=== PATIENT | female | born 1935 | race Caucasian/White ===

== ENCOUNTER 2017-08-16 16:26 | Observation (INO) ==
[2017-08-16 18:39] LABS: Basophils % 0.3 %; Eosinophils # 0.1 K/mcL (0.0-0.6); Eosinophils % 1.4 %; Hemoglobin 10.4 g/dL (11.5-15.4); Immature Granulocytes % 0.3 % (0-4); Lymphocytes # 0.7 K/mcL (0.6-4.6); Lymphocytes % 7.9 %; Mean Corpuscular HGB Conc 32.5 g/dL (31.6-35.5); Mean Corpuscular Hemoglobin 30.7 pg (28.0-33.3); Mean Corpuscular Volume 94.4 fL (83.0-100.0); Monocytes # 0.9 K/mcL (0.0-1.3); Monocytes % 10.6 %; Neutrophils # 6.9 K/mcL (1.6-8.9); Platelet Count 258 K/mcL (140-400); Red Blood Count 3.39 M/mcL (3.82-4.97); Red Cell Distribution Width 13.7 % (11.5-14.5); Segmented Neutrophils % 79.5 %
[2017-08-16 18:59] LABS: Albumin 3.3 g/dL (3.5-5.7); Albumin/Globulin Ratio 0.9 (1.1-2.2); Bilirubin,Total 0.6 mg/dL (0.3-1.0); Calcium 9.2 mg/dL (8.6-10.3); Globulin 3.7 g/dL (2.4-3.5)
[2017-08-16] MEDS ORDERED: 0.9 % Sodium Chloride 500 ML IVC ONE (19:13)
[2017-08-16] MEDS ORDERED: Ondansetron 4 MG/2 ML VIAL IVP ONE (19:14)
[2017-08-16] MEDS ORDERED: *HR* Morphine 2 MG/ML SYRINGE IVP ONE (19:14)
--- NOTE | 2017-08-16 19:19 | Emergency Department Note ---
START Narrative - START START: I examined this patient and my medical decision-making was reviewed with the emergency medicine resident. I agree with the documented findings, disposition and treatment plan as described except to the extent set forth below. Patient seen with emergency medicine resident Dr. Leodan Skinner, Please see a copy of his note for details of the H&P, ED evaluation, management and disposition. I have independently evaluated the patient and confirmed appropriate portions of the history and physical exam. Briefly: 82-year-old female had a non-simple slip fall complaining of some hip pain and also right lower quadrant pain abdomen is surgically benign CT is pending of the abdominal pelvic area screening labs pending patient and repeat EKG critically elevated troponin 0.04 I never been that high. Likely disposition is admission. Disposition is pending currently. Provided 30 minutes of critical care services for this patient.
[2017-08-16] MEDS ORDERED: *HR* HYDROmorphone (PF) 1 MG/ML SYRINGE IVP ONE (19:31)
[2017-08-16 20:49] LABS: Bilirubin,Urine Small (Negative); Blood,Urine Trace-lysed (Negative); Clarity,Urine Slightly Cloudy (Clear); Color,Urine Yellow (Yellow); Glucose,Urine (UA) Normal (Normal); Ketones,Urine Negative (Negative); Leukocyte Esterase,Urine Small (Negative); Nitrite,Urine Negative (Negative); PH,Urine 5.5 pH Units (5.0-8.0); Protein,Urine 100 mg/dL (Neg-Trace); Urobilinogen,Urine Normal (Normal)
[2017-08-16 21:00] LABS: Squamous Epithelial Cell,Urine Many per lpf (None-Few)
[2017-08-16 21:01] LABS: Bacteria,Urine Few per hpf (None-Few); Hyaline Casts,Urine None Seen per lpf (None-Few); WBC,Urine 30-50 per hpf (0-3)
--- NOTE | 2017-08-16 21:11 | Emergency Department Note ---
Disposition Clinical Impression: Elevated troponin, Frequent falls Abdominal pain Qualifiers: Abdominal location: right lower quadrant Qualified Code(s): R10.31 - Right lower quadrant pain CAD (coronary artery disease) Qualifiers: Coronary Disease-Associated Artery/Lesion type: unspecified vessel or lesion type [place] vs. transplanted heart: unspecified whether [place] or transplanted heart Associated angina: angina presence unspecified Qualified Code(s): I25.10 - Atherosclerotic heart disease of [place] coronary artery without angina pectoris Disposition: Admitted As Inpatient Condition: Fair Referrals: Fabian Cooper DO [Primary Care Provider] - Forms: ED Satisfaction Letter, Work/School Release Time of Disposition: 21:35 Abdominal Pain HPI - General Chief Complaint: ED Abdominal Pain Stated Complaint: RLQ Pain, Left shoulder Pain Time Seen by Provider: 08/16/17 18:32 Source: patient Mode of arrival: ambulatory Limitations: no limitations Nursing Notes Reviewed: Yes Vital Signs Reviewed: Yes - History of Present Illness HPI Narrative: 80-year-old female with history of diabetes, COPD, CAD post stents 4, presents abdominal pain and generalized weakness for a week, frequent falls at home, lives independently. She states that she has been having right lower quadrant pain she rates 5 out of 10, she also his right hip pain she has been able to ambulate but she states that she landed on her right hip on [place], and she did not get evaluated by a physician. Patient has had intermittent chest pain as well rated into her neck. Patient denies hemoptysis, leg swelling, history of DVT. Pt Subjective Complaint: abdominal pain Onset (ago): hour(s) Location: RLQ Pain Severity: moderate Pain Scale: 6 Quality: cramping, stabbing Radiation: none Improves with: nothing Worsens with: nothing Associated symptoms: Reports: nausea. Denies: vomiting, diarrhea, constipation , dysuria - Related Data Previous Rx's Medication Instructions Recorded Metoclopramide HCl 5 mg PO TIDWM #21 tablet 10/07/16 Ondansetron HCl [Zofran] 4 mg PO TID PRN #21 tablet 10/07/16 Amoxicillin 875 mg PO BID #20 tablet 08/13/17 Allergies Allergy/AdvReac Type Severity Reaction Status Date / Time morphine Allergy Difficulty Verified 08/16/17 19:28 Breathing adhesive tape AdvReac Itching Verified 08/16/17 16:59 ciprofloxacin [From Cipro] AdvReac Difficulty Verified 08/16/17 16:59 Breathing Penicillins AdvReac Difficulty Verified 08/16/17 16:59 Breathing Sulfa (Sulfonamide AdvReac Difficulty Verified 08/16/17 16:59 Antibiotics) Breathing All systems ED: reviewed and negative except as stated. Review of Systems: As Per HPI Constitutional: Reports: weakness. Denies: fever, chills Eyes: Denies: eye pain ENT ED: Denies: ear pain, throat pain Cardiovascular: Reports: as per HPI, chest pain Respiratory: Denies: cough, dyspnea Gastrointestinal: Reports: abdominal pain, nausea. Denies: vomiting Genitourinary: Denies: urgency, dysuria Musculoskeletal: Denies: back pain Integumentary: Denies: rash Neurological: Reports: as per HPI, weakness. Denies: headache Abdominal Pain PMH - Past Medical History Medical history: Reports: arthritis, asthma, CHF, COPD, coronary artery disease , diabetes, fibromyalgia, hypertension Female Surgical History: Reports: cholecystectomy, orthopedic, other Psychiatric history: Reports: no psych history - Social History Smoking status: Former smoker Alcohol use: Reports: none Drug use: Reports: none Physical Exam - General Limitations: age General appearance: alert - Head Head exam: atraumatic, normocephalic - ENT ENT exam: normal exam, normal oropharynx - Neck Neck exam: Present: normal inspection, full ROM - Chest Chest inspection: Present: normal inspection, symmetric chest wall rise - Respiratory Respiratory exam: Present: normal lung sounds bilaterally. Absent: respiratory distress - Cardiovascular Cardiovascular exam: Present: regular rate, normal rhythm. Absent: bradycardia - Abdominal Exam Abdominal exam: Present: soft, tenderness. Absent: guarding, rebound Abdominal tenderness: Present: RLQ, mild - Expanded Lower Extremity Exam Hip/Pelvis exam: Present: normal inspection, tenderness. Absent: deformity Upper leg exam: Absent: normal inspection, full ROM, tenderness Knee exam: Absent: normal inspection, full ROM, tenderness Neurovascular/Tendon exam: Present: normal capillary refill. Absent: pulse deficit, motor deficit - Back Exam Back exam: Present: normal inspection, full ROM - Neurological Exam Neurological exam: Present: alert, oriented X3, CN II-XII intact - Expanded Neurological Exam Patient oriented to: Present: person, place Motor strength - LUE: 5/5 Motor strength - RUE: 5/5 Motor strength - LLE: 5/5 Motor strength - RLE: 5/5 Coma Scale Eye Opening: Spontaneous Coma Scale Motor Response: Obeys Commands Coma Scale Verbal Response: Oriented Coma Scale Total: 15 - Psychiatric Psychiatric exam: Present: normal affect Course Course Narrative: 82-year-old female with generalized weakness at least one unwitnessed fall, unclear if this was syncopal or not get a CT abdomen and pelvis to evaluate for hip fracture as well as to evaluate her right lower quadrant pain, also patient is a history of CAD will be EKG troponin, plan for full lab work and reassessment - Reevaluation(s) Reevaluation #1: Patient is evidence of elevated troponin 0.04, no previous elevations in history of CAD, will give aspirin, no interabdominal or hip fracture pathology, however given weakness frequent falls living at home with elevated troponin concern for possible [place], ischemic changes, demand ischemia, for troponin trending no dictation for heparinization at this time as she is chest pain-free aspirin [facility] Time: 21:34 Vital Signs Temperature 98.9 F 08/16/17 16:59 Pulse Rate 68 08/16/17 16:59 Respiratory Rate 20 08/16/17 16:59 Blood Pressure 149/73 08/16/17 16:59 O2 Sat by Pulse Oximetry 94 08/16/17 16:59 Temperature 98.9 F 08/16/17 16:59 Pulse Rate 78 08/16/17 18:41 Respiratory Rate 18 08/16/17 18:41 Blood Pressure 172/57 08/16/17 18:41 O2 Sat by Pulse Oximetry 94 08/16/17 18:41 Oxygen Delivery Oxygen Delivery Room Air Abdominal Pain - Differential Diagnosis Differential Diagnosis: Likely: abdominal pain non-specific, diverticulitis - Medical Records Medical records reviewed: Yes I reviewed the patient's medical records. - Lab Data Lab results reviewed: Yes I reviewed the patient's lab results. Result diagrams: 08/16/17 18:26 08/16/17 18:26 Lab Results 08/16/17 08/16/17 08/16/17 Range/Units 18:26 18:26 18:26 WBC 8.7 (4.3-11.1) K/mcL RBC 3.39 L (3.82-4.97) M/mcL Hgb 10.4 L (11.5-15.4) g/dL Hct 32.0 L (35.3-44.9) % MCV 94.4 (83.0-100.0) fL MCH 30.7 (28.0-33.3) pg MCHC 32.5 (31.6-35.5) g/dL RDW 13.7 (11.5-14.5) % Plt Count 258 (140-400) K/mcL MPV 9.0 L (9.4-12.4) fL Immature Gran % 0.3 (0-4) % Seg Neutrophils % 79.5 % Lymphocytes % 7.9 % Monocytes % 10.6 % Eosinophils % 1.4 % Basophils % 0.3 % Neutrophils # 6.9 (1.6-8.9) K/mcL Lymphocytes # 0.7 (0.6-4.6) K/mcL Monocytes # 0.9 (0.0-1.3) K/mcL Eosinophils # 0.1 (0.0-0.6) K/mcL Basophils # 0.0 (0.0-0.2) K/mcL Sodium 135 L (136-145) mEq/L Potassium 4.0 (3.5-5.1) mEq/L Chloride 103 (98-107) mEq/L Carbon Dioxide 25 (23-29) mEq/L BUN 27 H (8-23) mg/dL Creatinine 1.31 H (0.60-1.20) mg/dL Est GFR ( Amer) 47 L (> 60) Est GFR (Non-Af Amer) 39 L (> 60) BUN/Creatinine Ratio 21 (6-26) Glucose 136 H (70-105) mg/dL Calculated Osmolality 287 (280-300) Calcium 9.2 (8.6-10.3) mg/dL Total Bilirubin 0.6 (0.3-1.0) mg/dL AST 16 (13-39) Units/L ALT 9 (7-52) Units/L Alkaline Phosphatase 72 (34-104) Units/L Troponin I 0.04 H* (< 0.04) ng/mL Serum Total Protein 7.0 (6.4-8.9) g/dL Albumin 3.3 L (3.5-5.7) g/dL Globulin 3.7 H (2.4-3.5) g/dL Albumin/Globulin Ratio 0.9 L (1.1-2.2) Amylase 40 (29-103) Units/L Lipase 43 (11-82) Units/L Ur Specimen Adequacy Urine Color (Yellow) Urine Clarity (Clear) Urine pH (5.0-8.0) pH Units Ur Specific [place] (1.010-1.025) Urine Protein (Neg-Trace) mg/dL Urine Glucose (UA) (Normal) mg/dL Urine Ketones (Negative) mg/dL Urine Blood (Negative) Urine Nitrite (Negative) Urine Bilirubin (Negative) Urine Urobilinogen (Normal) mg/dL Ur Leukocyte Esterase (Negative) Urine Microscopic RBC (0-3) per hpf Urine Microscopic WBC (0-3) per hpf Ur Squamous Epith Cells (None-Few) per lpf Urine Bacteria (None-Few) per hpf Hyaline Casts (None-Few) per lpf Ur Culture Indicated? (NO) 08/16/17 Range/Units 20:15 WBC (4.3-11.1) K/mcL RBC (3.82-4.97) M/mcL Hgb (11.5-15.4) g/dL Hct (35.3-44.9) % MCV (83.0-100.0) fL MCH (28.0-33.3) pg MCHC (31.6-35.5) g/dL RDW (11.5-14.5) % Plt Count (140-400) K/mcL MPV (9.4-12.4) fL Immature Gran % (0-4) % Seg Neutrophils % % Lymphocytes % % Monocytes % % Eosinophils % % Basophils % % Neutrophils # (1.6-8.9) K/mcL Lymphocytes # (0.6-4.6) K/mcL Monocytes # (0.0-1.3) K/mcL Eosinophils # (0.0-0.6) K/mcL Basophils # (0.0-0.2) K/mcL Sodium (136-145) mEq/L Potassium (3.5-5.1) mEq/L Chloride (98-107) mEq/L Carbon Dioxide (23-29) mEq/L BUN (8-23) mg/dL Creatinine (0.60-1.20) mg/dL Est GFR ( Amer) (> 60) Est GFR (Non-Af Amer) (> 60) BUN/Creatinine Ratio (6-26) Glucose (70-105) mg/dL Calculated Osmolality (280-300) Calcium (8.6-10.3) mg/dL Total Bilirubin (0.3-1.0) mg/dL AST (13-39) Units/L ALT (7-52) Units/L Alkaline Phosphatase (34-104) Units/L Troponin I (< 0.04) ng/mL Serum Total Protein (6.4-8.9) g/dL Albumin (3.5-5.7) g/dL Globulin (2.4-3.5) g/dL Albumin/Globulin Ratio (1.1-2.2) Amylase (29-103) Units/L Lipase (11-82) Units/L Ur Specimen Adequacy See below A Urine Color Yellow (Yellow) Urine Clarity Slightly Cloudy A (Clear) Urine pH 5.5 (5.0-8.0) pH Units Ur Specific [place] 1.020 (1.010-1.025) Urine Protein 100 H (Neg-Trace) mg/dL Urine Glucose (UA) Normal (Normal) mg/dL Urine Ketones Negative (Negative) mg/dL Urine Blood Trace-lysed H (Negative) Urine Nitrite Negative (Negative) Urine Bilirubin Small H (Negative) Urine Urobilinogen Normal (Normal) mg/dL Ur Leukocyte Esterase Small H (Negative) Urine Microscopic RBC 3-5 H (0-3) per hpf Urine Microscopic WBC 30-50 H (0-3) per hpf Ur Squamous Epith Cells Many H (None-Few) per lpf Urine Bacteria Few (None-Few) per hpf Hyaline Casts None Seen (None-Few) per lpf Ur Culture Indicated? NO. (NO) - Radiology Data Radiology results reviewed: Yes I reviewed the patient's radiology results. Chest/Abdomen X-ray 08/16/17 17:15 IMPRESSION: No acute findings in the abdomen or pelvis. Very small pleural effusions. D/ / Katerina Reyes MD / Katerina Reyes MD Interpreting Provider: Katerina Reyes MD Abdomen/Pelvis CT 08/16/17 19:14 IMPRESSION: No acute findings. D/ / Katerina Reyes MD / Katerina Reyes MD Interpreting Provider: Katerina Reyes MD - EKG Data EKG attestation: Yes I reviewed and interpreted this EKG. EKG shows normal: sinus rhythm (78 bpm TX 303 QRS 101 QTC 426 Q waves in inferior leads, no acute ischemic changes) When compared to previous EKG there are: other (Artifact from her back stimulator.)
[2017-08-16] MEDS ORDERED: Aspirin 325 MG TABLET PO ONE (21:14)
[2017-08-16] MEDS ORDERED: 0.9 % Sodium Chloride 1,000 ML IVC SCH (23:45)
[2017-08-16] MEDS ORDERED: Acetaminophen 325 MG TABLET PO PRN (23:48)
[2017-08-16] MEDS ORDERED: Naloxone 0.4 MG/ML INJ IVP PRN (23:48)
[2017-08-16] MEDS ORDERED: Ondansetron 4 MG/2 ML VIAL IVP PRN (23:48)
[2017-08-16] MEDS ORDERED: D5% in Water 1,000 ML IVC PRN (23:54)
[2017-08-16] MEDS ORDERED: *HR* Dextrose 50 % in Water (Syg) 50 ML SYRINGE IVP PRN (23:54)
[2017-08-16] MEDS ORDERED: Dextrose Gel 15 GM/37.5 ML TUBE PO PRN ×2 (23:54)
--- NOTE | 2017-08-16 23:58 | Internal Med History&Physical ---
Date of Encounter: 08/16/17 Time of Encounter: 22:50 Assessment and Plan (1) Abdominal pain Current visit: Yes Status: Acute Possibly related to blunt trauma from recent fall. CT abdomen/pelvis showed no acute abnormality, no right hip fracture. Continue pain control with when necessary Tylenol and oxycodone. Supportive care. Diet as tolerated. Qualifiers: Abdominal location: right lower quadrant Qualified Code(s): R10.31 - Right lower quadrant pain (2) Elevated troponin Current visit: Yes Status: Acute Could be demand ischemia in the setting of chronic kidney disease, hypoxia. Patient does report intermittent chest pains and has history of 4 coronary stents. Continue telemetry monitoring and cycle troponins. (3) Frequent falls Current visit: Yes Status: Acute Presents with mild confusion, generalized weakness, malaise with frequent falls. Supportive care and fall precautions. Could be related to viral syndrome/bronchitis. PT/OT evaluation. Patient's daughter feels that her mother is not at baseline mental status, and she also refuses rehab placement. (4) COPD (chronic obstructive pulmonary disease) Current visit: Yes Status: Chronic Noted acute exacerbation. Continue when necessary bronchodilators and supplemental oxygen. Noted to be on home oxygen at 2 L/m via nasal cannula. Qualifiers: COPD type: unspecified COPD Qualified Code(s): J44.9 - Chronic obstructive pulmonary disease, unspecified (5) Diabetes mellitus Current visit: Yes Status: Chronic Continue Accu-Chek blood glucose monitoring with sliding scale insulin. Diabetic diet. Qualifiers: Diabetes mellitus type: type 2 Diabetes mellitus complication status: with kidney complications Diabetes mellitus complication detail: with chronic kidney disease Diabetes mellitus rodent exterminator insulin use: without rodent exterminator use Chronic kidney disease stage: stage 3 (moderate) Qualified Code(s): E11.22 - Type 2 diabetes mellitus with diabetic chronic kidney disease; N18.3 - Chronic kidney disease, stage 3 (moderate); N18.3 - Chronic kidney disease, stage 3 (moderate) (6) CKD (chronic kidney disease) Current visit: Yes Status: Chronic Likely due to diabetic nephropathy. Serum creatinine around baseline at 1.3. Qualifiers: Chronic kidney disease stage: stage 3 (moderate) Qualified Code(s): N18.3 - Chronic kidney disease, stage 3 (moderate) (7) CHF (congestive heart failure) Current visit: Yes Status: Chronic Does not seem to be in acute exacerbation. Home medication reconciliation not available. Continue telemetry monitoring. Echocardiogram from October 2016 shows preserved ejection fraction, dynamic left ventricular outlet obstruction, mild left ventricular diastolic dysfunction, mild pulmonary hypertension. Qualifiers: Congestive heart failure type: diastolic Congestive heart failure chronicity: chronic Qualified Code(s): I50.32 - Chronic diastolic (congestive ) heart failure (8) Essential hypertension Current visit: Yes Status: Chronic (9) Fibromyalgia Current visit: Yes Status: Chronic (10) CAD (coronary artery disease) Current visit: Yes Status: Chronic Qualifiers: Coronary Disease-Associated Artery/Lesion type: [place] artery [place] vs. transplanted heart: [place] heart Associated angina: without angina Qualified Code(s): I25.10 - Atherosclerotic heart disease of [place] coronary artery without angina pectoris Internal Medicine - H&P: HPI Chief complaint: Weakness, falls History of present illness: Ms. Beck is a 82 year old female with history of CAD, COPD, diabetes, who presents with complaints of generalized weakness, fatigue and frequent falls. Patient is noted to be oriented but does have episodes of mild confusion and irritability. She reports generalized weakness, malaise, chills for the last few days, associated with recurrent falls. She fell on her right side in the last couple of days since when she has been experiencing right lower abdominal pain and right hip pain. She is able to bear Weight on her right leg and ambulate. She reports intermittent chest pain, not related to exertion or food intake, associated with some shortness of breath, which she relates to her COPD. She also has been having productive cough with clear sputum. No nausea, vomiting, diarrhea. She has received influenza vaccine for this season. Past Med Surg Social Fam HX - Past Medical History Medical history: arthritis, CHF, COPD, coronary artery disease, diabetes, fibromyalgia, hypertension, renal disease, thyroid disease Psychiatric history: no psych history - Past Surgical History Surgical History: cholecystectomy, other (left subclavian artery stenosis surgery) - Social History Smoking Status: Former smoker Smokeless Tobacco Status: No Alcohol use: none Drug use: none Occupational status: retired Current living situation: Home - Independent Activity Level: Uses cane/walker Recent Out of Country Travel Within the Last 8 Weeks: No Exposure or Possible Exposure to Illness During Travel: No - Family History Sister Hx Family Endocrine Disorder: Yes (DIABETES MELLITUS.) Mother Hx Family Cardiac Disorders: Yes (CAD) Father Hx Family Cancer: Yes (colon cancer) Internal Medicine - H&P: Meds Metoclopramide HCl 5 mg PO TIDWM #21 tablet 10/07/16 [Rx] Ondansetron HCl [Zofran] 4 mg PO TID PRN #21 tablet 10/07/16 [Rx] Amoxicillin 875 mg PO BID #20 tablet 08/13/17 [Rx] Gabapentin [Neurontin] 300 mg PO TID 08/17/17 [History] 3 Allergy/AdvReac Type Severity Reaction Status Date / Time morphine Allergy Difficulty Verified 08/16/17 19:28 Breathing adhesive tape AdvReac Itching Verified 08/16/17 16:59 ciprofloxacin [From Cipro] AdvReac Difficulty Verified 08/16/17 16:59 Breathing Penicillins AdvReac Difficulty Verified 08/16/17 16:59 Breathing Sulfa (Sulfonamide AdvReac Difficulty Verified 08/16/17 16:59 Antibiotics) Breathing All Systems PM: A 10-system review of systems was performed and is negative for pertinent findings except as documented above in the HPI. - Constitutional Constitutional: chills, fatigue, falls, malaise, weakness - EENT Eyes: no change in vision, no discharge, no pain, no photophobia Ears: no ear discharge, no ear pain, no tinnitus Nose, mouth and throat: no dysphagia, no nasal discharge, no neck pain, no sore throat - Cardiovascular Cardiovascular ROS IM: chest pain, dyspnea - Respiratory Respiratory: cough, dyspnea on exertion, chest congestion - Gastrointestinal Gastrointestinal: no abdominal pain, no diarrhea, no hematemesis, no hematochezia, no melena, no nausea, no vomiting - Genitourinary Genitourinary: no change in urinary stream, no dysuria, no flank pain, no hematuria - Musculoskeletal Musculoskeletal ROS IM: muscle weakness, no numbness, no tingling - Integumentary Integumentary IM: no rash, no unusual bruising - Neurological Neurological ROS: no confusion, no convulsions, no focal weakness, no numbness, no tingling, no tremor(s) - Hematologic/Lymphatic Hematologic/Lymphatic: no easy bruising - Constitutional Vitals: Temp Pulse Resp BP Pulse Ox 98.9 F 78 18 172/57 94 08/16/17 16:59 08/16/17 18:41 08/16/17 18:41 08/16/17 18:41 08/16/17 18:41 General appearance: Present: A&O X 3 (occasionally confused), answers questions appropriately - Respiratory Respiratory exam: Present: CTAB (coarse breath sounds B/L). Absent: accessory muscle use, rales, rhonchi, wheezes - Cardiovascular Cardiovascular exam: Present: RRR, +S1, +S2, systolic murmur. Absent: diastolic murmur, gallop, rubs - GI/Abdominal GI/Abdominal exam: Present: distended, normal bowel sounds, soft, no peritoneal signs. Absent: tenderness - Extremities Exam Extremities exam: Present: full ROM, warm, radial pulses palpable and symmetrical. Absent: calf tenderness, cyanotic, pedal edema - Neurological Exam Neurological exam: Present: CN II-XII intact, oriented X3 (intermittently irritable and uncooperative, not at baseline per daughter), no focal deficits. Absent: pronater drift, facial droop, speech deficit - Skin Skin exam: Present: dry, intact Internal Med - H&P Results - Labs CBC & Chem 7: 08/17/17 00:05 08/17/17 00:05 Labs: Short CBC 08/16/17 Range/Units 18:26 WBC 8.7 (4.3-11.1) K/mcL Hgb 10.4 L (11.5-15.4) g/dL Hct 32.0 L (35.3-44.9) % Plt Count 258 (140-400) K/mcL Neutrophils # 6.9 (1.6-8.9) K/mcL BMP 08/16/17 18:26 Sodium 135 L Potassium 4.0 Chloride 103 Carbon Dioxide 25 BUN 27 H Creatinine 1.31 H Glucose 136 H Calcium 9.2 Cardiac Enzymes 08/16/17 Range/Units 18:26 Troponin I 0.04 H* (< 0.04) ng/mL Liver Function 08/16/17 Range/Units 18:26 Total Bilirubin 0.6 (0.3-1.0) mg/dL AST 16 (13-39) Units/L ALT 9 (7-52) Units/L Alkaline Phosphatase 72 (34-104) Units/L Albumin 3.3 L (3.5-5.7) g/dL Urine 08/16/17 Range/Units 20:15 Urine Color Yellow (Yellow) Urine Clarity Slightly Cloudy A (Clear) Urine pH 5.5 (5.0-8.0) pH Units Ur Specific [place] 1.020 (1.010-1.025) Urine Protein 100 H (Neg-Trace) mg/dL Urine Glucose (UA) Normal (Normal) mg/dL - EKG Data -: EKG Interpreted by Myself EKG shows normal: sinus rhythm Rate: normal - Impressions ITS Impressions Chest/Abdomen X-ray 08/16/17 17:15 IMPRESSION: No acute findings in the abdomen or pelvis. Very small pleural effusions. D/ / Katerina Reyes MD / Katerina Reyes MD Interpreting Provider: Katerina Reyes MD Abdomen/Pelvis CT 08/16/17 19:14 IMPRESSION: No acute findings. D/ / Katerina Reyes MD / Katerina Reyes MD Interpreting Provider: Katerina Reyes MD
[2017-08-17 00:12] LABS: Basophils % 0.2 %; Eosinophils # 0.2 K/mcL (0.0-0.6); Eosinophils % 1.9 %; Hematocrit 30.4 % (35.3-44.9); Hemoglobin 9.9 g/dL (11.5-15.4); Immature Granulocytes % 0.2 % (0-4); Immature Platelets 1.7 % (1.1-6.1); Lymphocytes # 1.2 K/mcL (0.6-4.6); Mean Corpuscular HGB Conc 32.6 g/dL (31.6-35.5); Mean Corpuscular Hemoglobin 31.2 pg (28.0-33.3); Mean Corpuscular Volume 95.9 fL (83.0-100.0); Mean Platelet Volume 8.9 fL (9.4-12.4); Monocytes # 0.9 K/mcL (0.0-1.3); Monocytes % 10.3 %; Neutrophils # 6.2 K/mcL (1.6-8.9); Platelet Count 288 K/mcL (140-400); Red Blood Count 3.17 M/mcL (3.82-4.97); Red Cell Distribution Width 13.5 % (11.5-14.5); Segmented Neutrophils % 73.4 %
[2017-08-17 00:21] LABS: Bilirubin,Urine Small (Negative); Blood,Urine Negative (Negative); Clarity,Urine Cloudy (Clear); Color,Urine Yellow (Yellow); Glucose,Urine (UA) Normal (Normal); Ketones,Urine Negative (Negative); Leukocyte Esterase,Urine Large (Negative); Nitrite,Urine Negative (Negative); Protein,Urine 100 mg/dL (Neg-Trace); Specific Gravity,Urine 1.026 (1.010-1.025); Urobilinogen,Urine Normal (Normal)
[2017-08-17 00:23] LABS: Bacteria,Urine None Seen per hpf (None-Few); Squamous Epithelial Cell,Urine Many per lpf (None-Few); WBC,Urine TNTC per hpf (0-3)
[2017-08-17 00:24] LABS: Calcium 8.7 mg/dL (8.6-10.3); Potassium 3.8 mEq/L (3.5-5.1)
[2017-08-17 00:33] LABS: Hyaline Casts,Urine Few per lpf (None-Few); RBC,Urine 0-3 per hpf (0-3)
[2017-08-17] MEDS: *HR* OxyCODONE/APAP 5/325 TABLET PO PRN ×4 (02:19→22:02)
[2017-08-17] MEDS: Azithromycin 500 MG in D5% in Water 250 ML IVPB SCH (02:21)
[2017-08-17] MEDS: *HR* Heparin 5,000 UNIT/ML VIAL SQ SCH ×2 (06:19→17:32)
[2017-08-17] MEDS: Insulin LISPRO 300 UNITS/3 ML VIAL SQ SCH ×4 (09:12→21:57)
[2017-08-17] MEDS ORDERED: traMADol 50 MG TABLET PO PRN (15:58)
--- NOTE | 2017-08-17 16:10 | Internal Med Progress Note ---
Date of Encounter: 08/17/17 Time of Encounter: 16:08 - Assessment and plan (1) Abdominal pain Current Visit: Yes Status: Acute Assessment and plan: Possibly related to blunt trauma from recent fall. CT abdomen/pelvis showed no acute abnormality, no right hip fracture. Continue pain controlled with PRN tylenol and oxycodone. Supportive care. Diet as tolerated. Consider are you queue ultrasound, GI consult if pain persist Qualifiers: Abdominal location: right lower quadrant Qualified Code(s): R10.31 - Right lower quadrant pain (2) CAD (coronary artery disease) Current Visit: Yes Status: Chronic Assessment and plan: with 4 stents. 11/2016 stress test negative. Troponin peaked at 0.04 and trended down. She does report intermittent chest pain. Continue to monitor on telemetry, continue home ASA, Plavix, statin, BB. Consult cardiology Qualifiers: Coronary Disease-Associated Artery/Lesion type: [place] artery [place] vs. transplanted heart: [place] heart Associated angina: without angina Qualified Code(s): I25.10 - Atherosclerotic heart disease of [place] coronary artery without angina pectoris (3) CKD (chronic kidney disease) Current Visit: Yes Status: Chronic Assessment and plan: Likely due to diabetic nephropathy. Serum creatinine around baseline at 1.3. Qualifiers: Chronic kidney disease stage: stage 3 (moderate) Qualified Code(s): N18.3 - Chronic kidney disease, stage 3 (moderate) (4) COPD (chronic obstructive pulmonary disease) Current Visit: Yes Status: Chronic Assessment and plan: per hx. with chronic respiratory failure on home oxygen. No evidence of exacerbation. Continue PRN reading treatments, [place] oxygen. Noted acute exacerbation. Continue when necessary bronchodilators and supplemental oxygen. Qualifiers: COPD type: unspecified COPD Qualified Code(s): J44.9 - Chronic obstructive pulmonary disease, unspecified (5) Diabetes mellitus Current Visit: Yes Status: Chronic Assessment and plan: Continue Accu-Chek blood glucose monitoring with sliding scale insulin. Diabetic diet. Qualifiers: Diabetes mellitus type: type 2 Diabetes mellitus complication status: with kidney complications Diabetes mellitus complication detail: with chronic kidney disease Diabetes mellitus rn long term care insulin use: without rn long term care use Chronic kidney disease stage: stage 3 (moderate) Qualified Code(s): E11.22 - Type 2 diabetes mellitus with diabetic chronic kidney disease; N18.3 - Chronic kidney disease, stage 3 (moderate); N18.3 - Chronic kidney disease, stage 3 (moderate) (6) Essential hypertension Current Visit: Yes Status: Chronic Assessment and plan: per hx. BP variable but controlled. Cont home BP medications (7) DVT prophylaxis Current Visit: Yes Status: Acute Assessment and plan: heparin - Subjective Interval history: Seen and examined at bedside; patient is new to me. Information obtained from chart review and patient report. She still with complaint of right upper quadrant pain, worse with palpation. Not affected with eating. Reports intermittent sharp chest pain. No radiation. No aggravating or relieving factors. - Constitutional Vitals: Temp Pulse Resp BP Pulse Ox 99.4 F 69 17 160/75 84 08/17/17 15:25 08/17/17 15:25 08/17/17 15:25 08/17/17 15:25 08/17/17 15:25 General appearance: Present: A&O X 3 (occasionally confused), morbidly obese, answers questions appropriately - Head Head exam: Present: atraumatic, normocephalic - Eye Eye exam: Present: PERRL, conjuntiva pink, sclera anicteric Pupils: Present: PERRL - Neck Neck exam general surgery: Present: supple, trachea midline. Absent: lymphadenopathy - Respiratory Respiratory exam: Present: CTAB. Absent: accessory muscle use, rales, rhonchi, wheezes - Cardiovascular Cardiovascular exam: Present: RRR, +S1, +S2. Absent: diastolic murmur, gallop, rubs, systolic murmur - GI/Abdominal GI/Abdominal exam: Present: normal bowel sounds, soft, no peritoneal signs. Absent: distended, tenderness Additional comments: RUQ pain - Extremities Exam Extremities exam: Present: warm, radial pulses palpable and symmetrical. Absent : calf tenderness, cyanotic, pedal edema - Neurological Exam Neurological exam: Present: CN II-XII intact, oriented X3, no focal deficits. Absent: pronater drift, facial droop, speech deficit - Skin Skin exam: Present: dry, intact Internal Medicine: Result - Labs CBC & Chem 7: 08/17/17 00:05 08/17/17 00:05 Labs: Cardiac Enzymes 08/17/17 08/17/17 Range/Units 06:05 11:34 Troponin I 0.03 0.03 (< 0.04) ng/mL Consult Discharge Plan - Plan Referrals: Fabian Cooper DO [Primary Care Provider] -
[2017-08-17] MEDS: Gabapentin 300 MG CAPSULE PO SCH (22:02)
[2017-08-18] MEDS: Azithromycin 500 MG in D5% in Water 250 ML IVPB SCH (00:01)
[2017-08-18] MEDS: *HR* Heparin 5,000 UNIT/ML VIAL SQ SCH ×2 (05:54→17:48)
[2017-08-18 06:09] LABS: Hematocrit 27.2 % (35.3-44.9); Hemoglobin 8.6 g/dL (11.5-15.4); Mean Corpuscular HGB Conc 31.6 g/dL (31.6-35.5); Mean Corpuscular Hemoglobin 30.2 pg (28.0-33.3); Mean Corpuscular Volume 95.4 fL (83.0-100.0); Platelet Count 261 K/mcL (140-400); Red Blood Count 2.85 M/mcL (3.82-4.97); Red Cell Distribution Width 13.6 % (11.5-14.5)
[2017-08-18 06:18] LABS: Calcium 8.8 mg/dL (8.6-10.3); Potassium 4.5 mEq/L (3.5-5.1)
[2017-08-18 06:24] LABS: Hemoglobin A1C 5.7 %
[2017-08-18] MEDS: Aspirin Enteric Coated 81 MG Tablet PO SCH (08:33)
[2017-08-18] MEDS: Loratadine 10 MG TABLET PO SCH (08:33)
[2017-08-18] MEDS: Gabapentin 300 MG CAPSULE PO SCH ×3 (08:33→20:55)
[2017-08-18] MEDS: IMDUR PO SCH (08:34)
[2017-08-18] MEDS: Insulin LISPRO 300 UNITS/3 ML VIAL SQ SCH ×4 (08:34→21:01)
[2017-08-18] MEDS: *HR* OxyCODONE/APAP 5/325 TABLET PO PRN ×2 (08:47→20:59)
--- NOTE | 2017-08-18 10:18 | Cardiology Consult Note ---
Date of Encounter: 08/18/17 Time of Encounter: 10:00 Assessment and Plan (1) Elevated troponin Current Visit: Yes Status: Acute Borderline troponin elevation in the setting of fall and CKD; non-diagnostic for ACS. Likely secondary to demand ischemia. H/H downtrending 10.4 on admission , now 8.6. Patient reports RLQ abdominal pain s/p fall--CT abd/pelvix negative. Patient denies chest discomfort or angina equivalent (neck/jaw pain). No ischemic ECG changes. She does report "sharp" chest discomfort that occurs once every 2-3 weeks, last only seconds--likely noncardiac in etiology. Negative regadenoson nuclear stress October 2016. TTE October 2016 demonstrated preserved LVEF. No further cardiac testing recommended. Continue current medical therapy including asa, statin, plavix, and betablocker. Follow-up with Dr. Orozco as scheduled in the outpatient setting. (2) Abdominal pain Current Visit: Yes Status: Acute Defer further mgmt to primary service. Qualifiers: Abdominal location: right lower quadrant Qualified Code(s): R10.31 - Right lower quadrant pain (3) CAD (coronary artery disease) Current Visit: Yes Status: Acute Hx of PCI, x4 reported stents. Denies angina equivalent (neck/jaw pain.) No ECG changes. Asa, statin, plavix, betablocker. Qualifiers: Coronary Disease-Associated Artery/Lesion type: [place] artery [place] vs. transplanted heart: [place] heart Associated angina: without angina Qualified Code(s): I25.10 - Atherosclerotic heart disease of [place] coronary artery without angina pectoris (4) CKD (chronic kidney disease) Current Visit: Yes Status: Chronic Stable, now at baseline. Follows with Nephrology as outpatient. Qualifiers: Chronic kidney disease stage: stage 3 (moderate) Qualified Code(s): N18.3 - Chronic kidney disease, stage 3 (moderate) Discussion w patient/family: The assessment and plan as outlined above was discussed with the patient and/or family members who expressed understanding and agreement. All questions were answered. Thank you for involving us in the care of your patient. Please call with any questions. The patient will be discussed and reviewed with Dr. Merrill; changes to be made accordingly. History of Present Illness Consult date: 08/18/17 Requesting physician: Dayan Kay Consult reason: Elevated troponin Chief complaint: Abdominal pain History of present illness: Ms. Beck is a 82 year old female with PMHx significant for CAD, previous SNOW to the circumflex artery (2012), and 2 Mango (2 prior stents, ISR) to the RCA ( 2013), CKD-3, HTN, COPD, and DMII who presented to the ED with complaints of abdominal pain (RLQ). Patient reports falling a few days prior and landed "flat on floor." Denies loss of consciousness, syncope, or pre-syncopal symptoms, reports legs became weak and "gave out." She denies chest pain/discomfort/ angina equivalent, palpitations, syncope, leg edema, or any other symptoms prior to fall. Reports worsening weakness over the past 6 weeks--PT has been coming to home. Cardiology consulted for mild troponin elevation, 0.04, 0.04, then negative. Previous testing: [facility] 02/2014: Left main normal. LAD proximal 30% and mid 30% stenosis. Circumflex proximal 20% stenosis and distal 40% stenosis. RCA proximal stent with 60-70 ISR , mid stent with 60-70% ISR (2 Mango placed). Carotid duplex 04/2014: Left moderate stenosis. Right minimal plaque formation. Carotid duplex 01/01/2016: Left proximal ICA severe stenosis. Carotid duplex 07/08/2016: Left ICA moderate stenosis. Right carotid artery minimal plaque formation. Holter monitor 05/01/2016: Sinus rhythm with a PVC, 5 beat atrial tachycardia. Occasional PVCs averaging nearly 20 per hour. Rare PACs. Two episodes of SVT, longest 8 beats morphology consistent with atrial tachycardia. Lexiscan nuclear stress test 10/28/2016: Perfusion imaging negative for ischemia or prior infarct. ECG nondiagnostic. TTE 10/28/2016: EF 70%. Moderate asymmetric basal septal hypertrophy. 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 Mildly elevated LVOT gradients at rest. Mild MR, TR, PI. Mild pulmonary hypertension, estimated RVSP 44 mmHg. Mild diastolic dysfunction. Past Med Surg Social Fam HX - Past Medical History Attestation: Yes The following information was validated with the patient. Source: patient, old records reviewed Medical history: arthritis, CHF (diastolic), COPD, coronary artery disease, diabetes, fibromyalgia, hypertension, renal disease, thyroid disease Psychiatric history: no psych history - Past Surgical History Surgical History: cholecystectomy, other (left subclavian artery stenosis surgery) - Social History Smoking Status: Former smoker Smokeless Tobacco Status: No Alcohol use: none Drug use: none - Family History Sister Hx Family Endocrine Disorder: Yes (DIABETES MELLITUS.) Mother Hx Family Cardiac Disorders: Yes (CAD) Father Hx Family Cancer: Yes (colon cancer) Medications and Allergies Metoclopramide HCl 5 mg PO TIDWM #21 tablet 10/07/16 [Rx] Ondansetron HCl [Zofran] 4 mg PO TID PRN #21 tablet 10/07/16 [Rx] Amoxicillin 875 mg PO BID #20 tablet 08/13/17 [Rx] Aspirin 81 mg PO DAILY 08/17/17 [History] Gabapentin [Neurontin] 300 mg PO TID 08/17/17 [History] Imdur 10 mg PO DAILY 08/17/17 [History] Lipitor 10 mg PO DAILY 08/17/17 [History] Lisinopril 10 mg PO DAILY 08/17/17 [History] Loratadine 10 mg PO DAILY 08/17/17 [History] Metoprolol Tartrate 25 mg PO DAILY 08/17/17 [History] Namenda 5 mg PO DAILY 08/17/17 [History] Plavix 75 mg PO DAILY 08/17/17 [History] Synthroid 112 mcg PO DAILY 08/17/17 [History] Tramadol HCl 50 mg PO Q6HR PRN 08/17/17 [History] 3 Allergy/AdvReac Type Severity Reaction Status Date / Time morphine Allergy Difficulty Verified 08/16/17 19:28 Breathing adhesive tape AdvReac Itching Verified 08/16/17 16:59 ciprofloxacin [From Cipro] AdvReac Difficulty Verified 08/16/17 16:59 Breathing Penicillins AdvReac Difficulty Verified 08/16/17 16:59 Breathing Sulfa (Sulfonamide AdvReac Difficulty Verified 08/16/17 16:59 Antibiotics) Breathing All Systems Review: A 10-system review of systems was performed and is negative for pertinent findings except as documented above in the HPI. - Cardiovascular Cardiovascular: as per HPI Physical Examination General: Conversant HEENT: Atraumatic, Normocephaly Cardiac: Reg Rate and Rhythm, Normal S1 and S2 Lungs: Normal Breath Sounds Neuro: Alert and responsive Abdomen: Other (tenderness RLQ) Skin: No rashes noted on visualized skin Musculoskeletal: No Chest Wall Tenderness Extremities: Other (mild BLE, non-pitting, edema. ) Results 08/18/17 05:37 08/18/17 05:37 Lab Results 08/17/17 08/18/17 08/18/17 11:34 05:37 05:37 WBC 6.9 Hgb 8.6 L Hct 27.2 L Plt Count 261 Sodium 138 Potassium 4.5 Chloride 107 Carbon Dioxide 27 BUN 22 Creatinine 1.16 Glucose 103 Calcium 8.8 Troponin I 0.03 Active Medications Acetaminophen (Tylenol) 650 mg PO Q6HR PRN PRN Reason: Mild Pain (1-3) Stop: 02/15/18 23:49 Aspirin (Aspirin Ec) 81 mg PO DAILY [facility] Stop: 02/17/18 09:01 Last Admin: 08/18/17 08:33 Dose: 81 mg Atorvastatin Calcium (Lipitor) 10 mg PO DAILY [facility] Stop: 02/17/18 09:01 Last Admin: 08/18/17 08:33 Dose: 10 mg Clopidogrel Bisulfate (Plavix) 75 mg PO DAILY [facility] Stop: 02/17/18 09:01 Last Admin: 08/18/17 08:33 Dose: 75 mg Heparin Sodium (Porcine) (Heparin) 5,000 unit SQ Q12HCO [facility] Stop: 02/16/18 06:01 Last Admin: 08/18/17 05:54 Dose: 5,000 unit Hydralazine HCl (Hydralazine) 10 mg IVP Q6HR PRN PRN Reason: SBP>170 or DBP>110 Stop: 02/15/18 23:59 Azithromycin 500 mg/ Dextrose 250 mls @ 252 mls/hr IVPB Q24H [facility] Stop: 02/15/18 23:46 Last Infusion: 08/18/17 01:50 Dose: Infused Dextrose (Dextrose 5%) 1,000 mls @ 100 mls/hr IVC .Q10H PRN PRN Reason: HYPOGLYCEMIA Stop: 02/15/18 23:55 Insulin Human Lispro (Humalog) 0 units SQ TIDAC [facility] PRN Reason: Protocol Stop: 02/16/18 07:31 Last Admin: 08/18/17 08:34 Dose: Not Given Insulin Human Lispro (Humalog) 0 units SQ HS [facility] PRN Reason: Protocol Stop: 02/16/18 21:01 Last Admin: 08/17/17 21:57 Dose: Not Given Levothyroxine Sodium (Synthroid) 112 mcg PO 0630 [facility] Stop: 02/17/18 06:31 Last Admin: 08/18/17 05:54 Dose: 112 mcg Loratadine (Claritin) 10 mg PO DAILY [facility] Stop: 02/17/18 09:01 Last Admin: 08/18/17 08:33 Dose: 10 mg Memantine (Namenda) 5 mg PO DAILY [facility] Stop: 02/17/18 09:01 Last Admin: 08/18/17 08:33 Dose: 5 mg Metoprolol Tartrate (Lopressor) 25 mg PO DAILY [facility] Stop: 02/17/18 09:01 Last Admin: 08/18/17 08:33 Dose: 25 mg Naloxone HCl (Narcan) 0.4 mg IVP Q2MIN PRN PRN Reason: Opioid Reversal Stop: 02/15/18 23:49 Ondansetron HCl (Zofran) 4 mg IVP Q8HR PRN PRN Reason: Nausea And Vomiting Stop: 02/15/18 23:49 Oxycodone/Acetaminophen (Percocet 5/325) 1 each PO Q6HR PRN PRN Reason: Pain Stop: 02/16/18 01:56 Last Admin: 08/18/17 08:47 Dose: 1 each Pharmacy Profile Note (Patient Taking Own Medication) 0 each PO DAILY [facility] Stop: 02/17/18 09:01 Last Admin: 08/18/17 08:34 Dose: Not Given Tramadol HCl (Ultram) 50 mg PO Q6HR PRN PRN Reason: Pain - Imaging and Cardiology Echo: report reviewed Cardiac cath: report reviewed Other Results: 12 hour tele: avg HR=63. No significant event noted. - EKG Interpretation EKG results cardiology: personally reviewed Consult Discharge Plan - Plan Referrals: Fabain Cooper DO [Primary Care Provider] - 08/25/17 11:30 am
--- NOTE | 2017-08-18 15:54 | Internal Med Progress Note ---
Date of Encounter: 08/18/17 Time of Encounter: 15:49 - Assessment and plan (1) Abdominal pain Current Visit: Yes Status: Acute Assessment and plan: Possibly related to blunt trauma from recent fall. CT abdomen/pelvis showed no acute abnormality, no right hip fracture. Lipase, LFTs normal. RUQ ultrasound unremarkable. Symptoms appear to wax and wane and are not consistent. Etiology unknown at this time. Consult GI for further recommendations. Continue PPI, diet as tolerated. Qualifiers: Abdominal location: right lower quadrant Qualified Code(s): R10.31 - Right lower quadrant pain (2) CAD (coronary artery disease) Current Visit: Yes Status: Acute Assessment and plan: with 4 stents. 11/2016 stress test negative. Troponin peaked at 0.04 and trended down. She does report intermittent chest pain. Evaluated by cardiology who recommended continuing medical management with outpatient follow- up. Continue home ASA, Plavix, statin, BB. Qualifiers: Coronary Disease-Associated Artery/Lesion type: [place] artery [place] vs. transplanted heart: [place] heart Associated angina: without angina Qualified Code(s): I25.10 - Atherosclerotic heart disease of [place] coronary artery without angina pectoris (3) CKD (chronic kidney disease) Current Visit: Yes Status: Chronic Assessment and plan: Likely due to diabetic nephropathy. Serum creatinine around baseline at 1.3. Qualifiers: Chronic kidney disease stage: stage 3 (moderate) Qualified Code(s): N18.3 - Chronic kidney disease, stage 3 (moderate) (4) COPD (chronic obstructive pulmonary disease) Current Visit: Yes Status: Chronic Assessment and plan: per hx. with chronic respiratory failure on home oxygen. No evidence of exacerbation. Continue PRN reading treatments, [place] oxygen. Noted acute exacerbation. Continue when necessary bronchodilators and supplemental oxygen. Qualifiers: COPD type: unspecified COPD Qualified Code(s): J44.9 - Chronic obstructive pulmonary disease, unspecified (5) Diabetes mellitus Current Visit: Yes Status: Chronic Assessment and plan: Continue Accu-Chek blood glucose monitoring with sliding scale insulin. Diabetic diet. Qualifiers: Diabetes mellitus type: type 2 Diabetes mellitus complication status: with kidney complications Diabetes mellitus complication detail: with chronic kidney disease Diabetes mellitus intermediate frame tender insulin use: without intermediate frame tender use Chronic kidney disease stage: stage 3 (moderate) Qualified Code(s): E11.22 - Type 2 diabetes mellitus with diabetic chronic kidney disease; N18.3 - Chronic kidney disease, stage 3 (moderate); N18.3 - Chronic kidney disease, stage 3 (moderate) (6) Essential hypertension Current Visit: Yes Status: Chronic Assessment and plan: per hx. BP variable but controlled. Cont home BP medications (7) DVT prophylaxis Current Visit: Yes Status: Acute Assessment and plan: heparin - Time Spent With Patient less than 15 minutes - Subjective Interval history: Seen and examined at bedside. She is still complaining of Kenny pain. Pain is lower abdomen today (was right upper quadrant abdominal pain yesterday). Not worse with eating. Abdomen tender on exam. No nausea vomiting, no diarrhea. Schedule Dr. Iglesias and we will check lactic acid to evaluate for ischemia and right upper quadrant ultrasound. If both negative and still having abdominal pain will consult GI - Constitutional Vitals: Temp Pulse Resp BP Pulse Ox 97.9 F 55 16 154/80 95 08/18/17 15:39 08/18/17 15:39 08/18/17 15:39 08/18/17 15:39 08/18/17 15:39 General appearance: Present: A&O X 2, A&O X 3 (occasionally confused), morbidly obese, answers questions appropriately - Head Head exam: Present: atraumatic, normocephalic - Eye Eye exam: Present: PERRL, conjuntiva pink, sclera anicteric Pupils: Present: PERRL - Neck Neck exam general surgery: Present: supple, trachea midline. Absent: lymphadenopathy - Respiratory Respiratory exam: Present: CTAB. Absent: accessory muscle use, rales, rhonchi, wheezes - Cardiovascular Cardiovascular exam: Present: RRR, +S1, +S2. Absent: diastolic murmur, gallop, rubs, systolic murmur - GI/Abdominal GI/Abdominal exam: Present: normal bowel sounds, soft, tenderness, no peritoneal signs. Absent: distended - Extremities Exam Extremities exam: Present: warm, radial pulses palpable and symmetrical. Absent : calf tenderness, cyanotic, pedal edema - Neurological Exam Neurological exam: Present: CN II-XII intact, oriented X3, no focal deficits. Absent: pronater drift, facial droop, speech deficit - Skin Skin exam: Present: dry, intact Internal Medicine: Result - Labs CBC & Chem 7: 08/18/17 05:37 08/18/17 05:37 Labs: Short CBC 08/18/17 Range/Units 05:37 WBC 6.9 (4.3-11.1) K/mcL Hgb 8.6 L (11.5-15.4) g/dL Hct 27.2 L (35.3-44.9) % Plt Count 261 (140-400) K/mcL BMP 08/18/17 05:37 Sodium 138 Potassium 4.5 Chloride 107 Carbon Dioxide 27 BUN 22 Creatinine 1.16 Glucose 103 Calcium 8.8 - Impressions Impressions Abdomen Ultrasound 08/18/17 14:00 IMPRESSION: Unremarkable right upper quadrant ultrasound. D/ / 08/18/2017 14:50:20 Mika Martin MD / Aurelia Farris Interpreting Provider: Mika Martin MD Consult Discharge Plan - Plan Referrals: Fabian Cooper DO [Primary Care Provider] - 08/25/17 11:30 am
--- NOTE | 2017-08-18 16:22 | Electrocardiograph Report ---
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
--- NOTE | 2017-08-18 16:31 | Electrocardiograph Report ---
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
[2017-08-19] MEDS: *HR* OxyCODONE/APAP 5/325 TABLET PO PRN ×2 (06:31→22:20)
[2017-08-19] MEDS: *HR* Heparin 5,000 UNIT/ML VIAL SQ SCH ×2 (06:32→16:26)
[2017-08-19 07:13] LABS: Hematocrit 29.7 % (35.3-44.9); Hemoglobin 9.3 g/dL (11.5-15.4); Mean Corpuscular HGB Conc 31.3 g/dL (31.6-35.5); Mean Corpuscular Hemoglobin 29.9 pg (28.0-33.3); Mean Corpuscular Volume 95.5 fL (83.0-100.0); Mean Platelet Volume 9.1 fL (9.4-12.4); Platelet Count 324 K/mcL (140-400); Red Blood Count 3.11 M/mcL (3.82-4.97); Red Cell Distribution Width 13.6 % (11.5-14.5)
[2017-08-19 07:36] LABS: BUN/Creatinine Ratio 19 (6-26); Blood Urea Nitrogen 20 mg/dL (8-23); Calcium 9.2 mg/dL (8.6-10.3); Carbon Dioxide 28 mEq/L (23-29); Chloride 105 mEq/L (98-107); Glucose 107 mg/dL (70-105); Osmolality,Calculated 289 (280-300); Sodium 138 mEq/L (136-145); eGFR For African Americans > 60 (> 60); eGFR For Non-African Americans 50 (> 60)
[2017-08-19] MEDS: Insulin LISPRO 300 UNITS/3 ML VIAL SQ SCH ×4 (10:15→20:25)
[2017-08-19] MEDS: Gabapentin 300 MG CAPSULE PO SCH ×3 (10:51→22:01)
[2017-08-19] MEDS: Aspirin Enteric Coated 81 MG Tablet PO SCH (10:51)
[2017-08-19] MEDS: Loratadine 10 MG TABLET PO SCH (10:51)
[2017-08-19] MEDS: IMDUR PO SCH (10:57)
[2017-08-19] MEDS ORDERED: Sennosides/Docusate Sodium TABLET PO PRN (11:21)
--- NOTE | 2017-08-19 11:51 | Gastroenterology Consult Note ---
<Christina Madrigal M - Last Filed: 08/19/17 11:47> Date of Encounter: 08/19/17 Time of Encounter: 11:00 - Assessment and plan (1) Abdominal pain Current Visit: Yes Status: Acute Assessment and plan: Pt complains of RLQ pain worse since fall. She denies any nausea, vomiting, diarrhea, bleeding or tarry stools. She has constipation since hospitalization will order senna as needed. Ct and ultrasound were both negative. Continue PPI. May need EGD. Qualifiers: Abdominal location: right lower quadrant Qualified Code(s): R10.31 - Right lower quadrant pain - Time Spent With Patient Total time spent is greater than 50% in coordination of care (as documented) at patient's floor/unit and/or counseling patient: GI History of Present Illness - Data of Consult Patient: new to practice Consult date: 08/19/17 Requesting Physician: Dayan Kay CNP - Consult Narrative Reason for consult: RLQ abdominal pain History of present illness: Ms. Beck is a 82 year old female with history of CAD, COPD, and diabetes, who presents with complaints of generalized weakness, fatigue and frequent falls. She reports generalized weakness, malaise, chills for the last few days , associated with recurrent falls. She fell on her right side in the last couple of days since when she has been experiencing right lower abdominal pain and right hip pain. She states pain in her right hip is some better since admission and she is now able to bear weight. She also reports recent bronchitis and states she was seen in the ER and given amoxicillin but never started it. CT head showed no acute intracranial abnormality. CT abdomen/ pelvis showed no acute abnormality, no right hip fracture. Lipase, LFTs normal. RUQ ultrasound unremarkable. Symptoms appear to wax and wane and are not consistent. She has occasional nausea but denies vomiting. She has occasional GERD. She is complaining of RLQ pain, tender with palpation. She denies diarrhea. She denies chronic constipation but states she has not had a BM since Thursday. She denies any bloody or tarry stools. She denies fever. Colon: 2012 ([place]) tortuous colon, scant diverticulosis EGD: denies Nsaids: asa 81 mg Anticoagulants: plavix Past Med Surg Social Fam HX - Past Medical History Medical history: arthritis, CHF (diastolic), COPD, coronary artery disease, diabetes, fibromyalgia, hypertension, renal disease, thyroid disease Psychiatric history: no psych history - Past Surgical History Surgical History: cholecystectomy, other (left subclavian artery stenosis surgery) - Social History Smoking Status: Former smoker Smokeless Tobacco Status: No Alcohol use: none Drug use: none - Family History Sister Hx Family Endocrine Disorder: Yes (DIABETES MELLITUS.) Mother Hx Family Cardiac Disorders: Yes (CAD) Father Hx Family Cancer: Yes (colon cancer) Review of Systems: GI: as per [facility] [place] [facility]: denies fever, has some chills EYES: denies yellow discoloration ENT: denies pain with swallowing or difficulty swallowing CARDIO: see HPI RESP: Shortness of breath with exertion : denies change in color of urine NEURO: weakness HEME: Denies any bruising MS: chronic joint pain, joint swelling or back pain. DERM: denies rash or itching PSYCH: Denies history of anxiety or depression - Constitutional Vitals: Temp Pulse Resp BP Pulse Ox 97.9 F 65 16 149/77 98 08/19/17 11:11 08/19/17 11:11 08/19/17 11:11 08/19/17 11:11 08/19/17 11:11 Exam: CONSTITUTIONAL:~alert, confused at times.~HEAD:~normocephalic.~EYES:~no jaundice.~NECK:~no obvious swelling.~HEART:~regular rate and rhythm, no murmurs. ~LUNGS:~scattered crackles bilaterally~ABDOMEN:~non distended, soft, tender RLQ , no masses palpable, no organomegaly.~RECTAL EXAM:~Deferred.~EXTREMITIES:~no clubbing, cyanosis or trace BLE edema.~SKIN:~no stigmata of chronic liver disease.~NEUROLOGIC:~no obvious focal defect.~~~~ Results - Labs CBC & Chem 7: 08/19/17 06:34 08/19/17 06:34 Labs: Last Result Calcium 9.2 mg/dL (8.6-10.3) 08/19/17 06:34 Troponin I 0.03 ng/mL (< 0.04) 08/17/17 11:34 Triglycerides 82 mg/dL (< 150) 08/18/17 05:37 Entire Visit Hgb 9.3 g/dL (11.5-15.4) L 08/19/17 06:34 Hct 29.7 % (35.3-44.9) L 08/19/17 06:34 Total Bilirubin 0.6 mg/dL (0.3-1.0) 08/16/17 18:26 AST 16 Units/L (13-39) 08/16/17 18:26 ALT 9 Units/L (7-52) 08/16/17 18:26 Amylase 40 Units/L (29-103) 08/16/17 18:26 Lipase 43 Units/L (11-82) 08/16/17 18:26 - Impressions Impressions Abdomen Ultrasound 08/18/17 14:00 IMPRESSION: Unremarkable right upper quadrant ultrasound. D/ / 08/18/2017 14:50:20 Mika Martin MD / Aurelia Farris Interpreting Provider: Mika Martin MD Head CT 08/18/17 17:15 IMPRESSION: No acute intracranial abnormality. Diffuse atrophic changes with findings suggesting chronic microvascular ischemia D/ / Juventino Colorado MD / Juventino Colorado MD Interpreting Provider: Juventino Colorado MD Consult Discharge Plan - Plan Referrals: Fabian Cooper DO [Primary Care Provider] - 08/25/17 11:30 am <Jez Espinoza - Last Filed: 08/19/17 14:41> Date of Encounter: 08/19/17 Time of Encounter: 14:00 - Time Spent With Patient Total time spent is greater than 50% in coordination of care (as documented) at patient's floor/unit and/or counseling patient: GI History of Present Illness - Data of Consult Requesting Physician: Dayan Kay CNP - Consult Narrative History of present illness: Ms. Beck is a 82 year old female - Constitutional Vitals: Temp Pulse Resp BP Pulse Ox 99.1 F 56 12 144/56 98 08/19/17 13:15 08/19/17 14:25 08/19/17 14:25 08/19/17 14:25 08/19/17 14:25 Results - Labs CBC & Chem 7: 08/19/17 06:34 08/19/17 06:34 Labs: Last Result Calcium 9.2 mg/dL (8.6-10.3) 08/19/17 06:34 Troponin I 0.03 ng/mL (< 0.04) 08/17/17 11:34 Triglycerides 82 mg/dL (< 150) 08/18/17 05:37 Entire Visit Hgb 9.3 g/dL (11.5-15.4) L 08/19/17 06:34 Hct 29.7 % (35.3-44.9) L 08/19/17 06:34 Total Bilirubin 0.6 mg/dL (0.3-1.0) 08/16/17 18:26 AST 16 Units/L (13-39) 08/16/17 18:26 ALT 9 Units/L (7-52) 08/16/17 18:26 Amylase 40 Units/L (29-103) 08/16/17 18:26 Lipase 43 Units/L (11-82) 08/16/17 18:26 - Impressions Impressions Abdomen Ultrasound 08/18/17 14:00 IMPRESSION: Unremarkable right upper quadrant ultrasound. D/ / 08/18/2017 14:50:20 Mika Martin MD / Aurelia Farris Interpreting Provider: Mika Martin MD Head CT 08/18/17 17:15 IMPRESSION: No acute intracranial abnormality. Diffuse atrophic changes with findings suggesting chronic microvascular ischemia D/ / Juventino Colorado MD / Juventino Colorado MD Interpreting Provider: Juventino Colorado MD - Attending Attestation I examined this patient and my medical decision-making was reviewed with the Resident Physician. I agree with the documented findings, disposition and treatment plan as described except to the extent set forth below. Ot with upper abd, CT negative. EGD to r/o gastric/duodenal causes
[2017-08-19] MEDS ORDERED: Simethicone 40 MG/0.6 ML MLS IR ONE (13:08)
[2017-08-19] MEDS ORDERED: Tetracaine/Benzocaine/Butamben 200MG/SPRAY (100SPY/BOT) MM ONE (13:08)
[2017-08-19] MEDS: 0.9 % Sodium Chloride 500 ML IVC SCH ×2 (13:20→21:59)
[2017-08-19] MEDS ORDERED: *HR* Propofol 200 MG/20 ML VIAL IVP ONE (13:32)
[2017-08-19] MEDS ORDERED: Lidocaine -MPF 2% 2 ML VIAL ONE (13:32)
[2017-08-19] MEDS ORDERED: Propofol 500 MG/50 ML INFUS..BTL ONE (13:33)
--- NOTE | 2017-08-19 13:35 | Anesthesia Evaluation PreOp ---
Date of Encounter: 08/19/17 Time of Encounter: 13:33 - Past History Planned Operation: EGD/Push Enteroscopy Cardiac History: MO (Troponin bump this admission, likely from demand ischemia s /p recent fall), CHF, HTN, Cardiac Stent (Stents x 4, with Troponin bump this admission) Pulmonary History: Former smoker, COPD PIPELINE OPERATOR History: Other (Fibromyalgia maintained on Neurontin) Other Medical History: Renal, Diabetes Type II, Thyroid Anesthesia History: Past Anesthesia ([place], L-subclavian Artery stenosis) Alcohol Use: none Drug use: none Medications and Allergies Amoxicillin 875 mg PO BID #20 tablet 08/13/17 [Rx] Aspirin [Lo-Dose Aspirin EC] 81 mg PO DAILY 08/17/17 [History] Clopidogrel [Plavix] 75 mg PO DAILY 08/17/17 [History] Gabapentin [Neurontin] 300 mg PO TID 08/17/17 [History] Isosorbide MONOnitrate (24 HR) [Imdur] 30 mg PO DAILY 08/17/17 [History] Lisinopril [Zestril] 10 mg PO DAILY 08/17/17 [History] Loratadine [Allergy Relief] 10 mg PO DAILY 08/17/17 [History] Memantine HCl [Namenda Xr] 28 mg PO DAILY 08/17/17 [History] Tramadol HCl [Ultram] 50 mg PO BID PRN 08/17/17 [History] Ammonium Lactate [Amlactin] 1 appl TP AD 08/18/17 [History] Atorvastatin [Lipitor] 10 mg PO HS 08/18/17 [History] Diclofenac Sodium [Voltaren] 2 gm TP TID 08/18/17 [History] Levothyroxine [Synthroid] 112 mcg PO DAILY 08/18/17 [History] Linagliptin [Tradjenta] 5 mg PO DAILY 08/18/17 [History] Metoprolol [Lopressor] 12.5 mg PO DAILY 08/18/17 [History] 3 Allergy/AdvReac Type Severity Reaction Status Date / Time morphine Allergy Difficulty Verified 08/18/17 18:57 Breathing adhesive tape AdvReac Itching Verified 08/18/17 18:57 ciprofloxacin [From Cipro] AdvReac Difficulty Verified 08/18/17 18:57 Breathing Penicillins AdvReac Difficulty Verified 08/18/17 18:57 Breathing Sulfa (Sulfonamide AdvReac Difficulty Verified 08/18/17 18:57 Antibiotics) Breathing - Meds/Allergy Pre-op Review Medications Reviewed: Yes Allergies Reviewed: Yes Beta Blockers on Current Med List: No Anesthesia Results - Labs 08/19/17 06:34 08/19/17 06:34 Laboratory Results Impressions Chest/Abdomen X-ray 08/16/17 17:15 IMPRESSION: No acute findings in the abdomen or pelvis. Very small pleural effusions. D/ / Katerina Reyes MD / Katerina Reyes MD Interpreting Provider: Katerina Reyes MD Abdomen/Pelvis CT 08/16/17 19:14 IMPRESSION: No acute findings. D/ / Katerina Reyes MD / Katerina Reyes MD Interpreting Provider: Katerina Reyes MD Abdomen Ultrasound 08/18/17 14:00 IMPRESSION: Unremarkable right upper quadrant ultrasound. D/ / 08/18/2017 14:50:20 Mika Martin MD / Aurelia Farris Interpreting Provider: Mika Martin MD Head CT 08/18/17 17:15 IMPRESSION: No acute intracranial abnormality. Diffuse atrophic changes with findings suggesting chronic microvascular ischemia D/ / Juventino Colorado MD / Juventino Colorado MD Interpreting Provider: Juventino Colorado MD - Imaging EKG: image reviewed Anesthesia Exam Vital Signs Temp Pulse Resp BP Pulse Ox 08/19/17 13:15 99.1 F 55 16 177/68 99 08/19/17 11:11 97.9 F 65 16 149/77 98 08/19/17 07:01 98.3 F 72 16 145/66 97 08/19/17 02:42 98.3 F 65 16 180/75 92 08/18/17 22:29 99.1 F 62 16 155/68 95 08/18/17 20:54 96 08/18/17 19:04 97.5 F L 71 16 174/68 95 08/18/17 15:39 97.9 F 55 16 154/80 95 Intake and Output 08/18/17 08/19/17 08/19/17 23:59 07:59 15:59 Other: Weight 84 kg Blood Glucose* 172 109 111 Patient Weight 08/19/17 23:59 Weight 84 kg Height: 5'2" Weight: 180# NPO (# of Hours): MNoc - HEENT Pupil (Motor): Pupils equal, EOMI Mallampati: II Teeth: Missing, Poor dentition Oral Opening: Greater than 3 - PIPELINE OPERATOR LOC: Oriented PIPELINE OPERATOR Motor: Normal RUE, Normal LUE, Normal RLE, Normal LLE, Normal Face PIPELINE OPERATOR Sensory: Normal: RUE, LUE, RLE, LLE, Face - Cardiac Rhythm: Regular Murmur: None - Pulmonary Breath Sounds: bilateral Clear Respiratory Effort: Symmetrical Anesthesia Assess/Plan ASA Score: 3 (COPD, CHF, DM, CKD,) Anesthetic Plan: General Monitoring Plan: Standard Monitors Recovery Plan: PACU Anes Supervising Prov Stmt: PT seen/evaluated, R&B Discussed, questions answered and consent obtained. Gaye Ruiz MD
--- NOTE | 2017-08-19 13:55 | Internal Med Progress Note ---
Date of Encounter: 08/19/17 Time of Encounter: 10:40 - Assessment and plan (1) Abdominal pain Current Visit: Yes Status: Acute Assessment and plan: Patient presents with one-week history of right mid abdominal pain. It is tender to palpation more laterally into lower ribs. Patient reports nausea without vomiting, no diarrhea. She describes the pain as achy, constant. She reports pain onset after falling at home on [address]. Patient is being evaluated by GI. Patient will have EGD. Patient reports that she fell on her bottom, denies that she fell on her abdomen and her right side. GI note reports the patient fell onto her right side. Patient has had chest/abdomen x-ray, abdomen and pelvis CT, abdominal ultrasound , all are unremarkable. Chest/Abdomen X-ray 08/16/17 17:15 IMPRESSION: No acute findings in the abdomen or pelvis. Very small pleural effusions. D/ / Katerina Reyes MD / Katerina Reyes MD Interpreting Provider: Katerina Reyes MD Abdomen/Pelvis CT 08/16/17 19:14 IMPRESSION: No acute findings. D/ / Katerina Reyes MD / Katerina Reyes MD Interpreting Provider: Katerina Reyes MD Abdomen Ultrasound 08/18/17 14:00 IMPRESSION: Unremarkable right upper quadrant ultrasound. D/ / 08/18/2017 14:50:20 Mika Martin MD / Aurelia Farris Interpreting Provider: Mika Martin MD Qualifiers: Abdominal location: right lower quadrant Qualified Code(s): R10.31 - Right lower quadrant pain (2) CAD (coronary artery disease) Current Visit: Yes Status: Acute Assessment and plan: Patient denies chest pain. Prior history of 4 stents. Patient had stress in November, was negative. Patient had chest pain on arrival with a dynamic troponin elevation. He will continue home dose of aspirin, Plavix, statin and beta bryan. Patient will follow-up with cardiology in the office after discharge. Qualifiers: Coronary Disease-Associated Artery/Lesion type: [place] artery [place] vs. transplanted heart: [place] heart Associated angina: without angina Qualified Code(s): I25.10 - Atherosclerotic heart disease of [place] coronary artery without angina pectoris (3) COPD (chronic obstructive pulmonary disease) Current Visit: Yes Status: Chronic Assessment and plan: No acute exacerbation. Patient with chronic respiratory failure on home oxygen. Continue supplemental oxygen as needed. Continue when necessary nebulizer treatments. Lungs are clear throughout anterior and posterior lung glynn. Qualifiers: COPD type: unspecified COPD Qualified Code(s): J44.9 - Chronic obstructive pulmonary disease, unspecified (4) Diabetes mellitus Current Visit: Yes Status: Chronic Assessment and plan: A1c 5.7%. Continue SSI, accuchecks achs, and diabetic diet. Qualifiers: Diabetes mellitus type: type 2 Diabetes mellitus complication status: with kidney complications Diabetes mellitus complication detail: with chronic kidney disease Diabetes mellitus long term care social worker insulin use: without long term care social worker use Chronic kidney disease stage: stage 3 (moderate) Qualified Code(s): E11.22 - Type 2 diabetes mellitus with diabetic chronic kidney disease; N18.3 - Chronic kidney disease, stage 3 (moderate); N18.3 - Chronic kidney disease, stage 3 (moderate) (5) CKD (chronic kidney disease) Current Visit: Yes Status: Chronic Assessment and plan: Renal function has returned to normal limits. GFR 50, above her normal baseline. Qualifiers: Chronic kidney disease stage: stage 3 (moderate) Qualified Code(s): N18.3 - Chronic kidney disease, stage 3 (moderate) (6) Essential hypertension Current Visit: Yes Status: Chronic Assessment and plan: Well controlled. Continue home medications. Continue to monitor VS. (7) DVT prophylaxis Current Visit: Yes Status: Acute Assessment and plan: Heparin SQ daily - Time Spent With Patient less than 15 minutes - Constitutional Vitals: Temp Pulse Resp BP Pulse Ox 99.1 F 55 16 177/68 99 08/19/17 13:15 08/19/17 13:15 08/19/17 13:15 08/19/17 13:15 08/19/17 13:15 General appearance: Present: mild distress, A&O X 3 (occasionally confused), morbidly obese, pleasant, answers questions appropriately - Head Head exam: Present: atraumatic, normal inspection, normocephalic - Eye Eye exam: Present: normal appearance, conjuntiva pink, sclera anicteric - Neck Neck exam general surgery: Present: supple, trachea midline. Absent: lymphadenopathy, tenderness - Respiratory Respiratory exam: Present: CTAB. Absent: accessory muscle use, rales, respiratory distress, rhonchi, wheezes - Cardiovascular Cardiovascular exam: Present: RRR, +S1, +S2. Absent: diastolic murmur, gallop, rubs, systolic murmur - GI/Abdominal GI/Abdominal exam: Present: normal bowel sounds, soft, no peritoneal signs. Absent: distended, hepatomegaly, tenderness - Extremities Exam Extremities exam: Present: normal capillary refill, normal inspection, warm, radial pulses palpable and symmetrical. Absent: calf tenderness, cyanotic, pedal edema - Neurological Exam Neurological exam: Present: alert, oriented X3, no focal deficits. Absent: facial droop, speech deficit - Skin Skin exam: Present: dry, intact, normal color, warm. Absent: rash Internal Medicine: Result - Labs CBC & Chem 7: 08/19/17 06:34 08/19/17 06:34 Labs: Short CBC 08/19/17 Range/Units 06:34 WBC 7.5 (4.3-11.1) K/mcL Hgb 9.3 L (11.5-15.4) g/dL Hct 29.7 L (35.3-44.9) % Plt Count 324 (140-400) K/mcL BMP 08/19/17 06:34 Sodium 138 Potassium 4.0 Chloride 105 Carbon Dioxide 28 BUN 20 Creatinine 1.05 Glucose 107 H Calcium 9.2 - Impressions Impressions Abdomen Ultrasound 08/18/17 14:00 IMPRESSION: Unremarkable right upper quadrant ultrasound. D/ / 08/18/2017 14:50:20 Mika Martin MD / Aurelia Farris Interpreting Provider: Mika Martin MD Head CT 08/18/17 17:15 IMPRESSION: No acute intracranial abnormality. Diffuse atrophic changes with findings suggesting chronic microvascular ischemia D/ / Juventino Colorado MD / Juventino Colorado MD Interpreting Provider: Juventino Colorado MD Consult Discharge Plan - Plan Referrals: Fabian Cooper DO [Primary Care Provider] - 08/25/17 11:30 am
[2017-08-20 05:55] LABS: Hemoglobin 10.6 g/dL (11.5-15.4); Mean Corpuscular HGB Conc 32.1 g/dL (31.6-35.5); Mean Corpuscular Hemoglobin 30.5 pg (28.0-33.3); Mean Corpuscular Volume 95.1 fL (83.0-100.0); Platelet Count 341 K/mcL (140-400); Red Blood Count 3.47 M/mcL (3.82-4.97); Red Cell Distribution Width 13.5 % (11.5-14.5)
[2017-08-20] MEDS: *HR* Heparin 5,000 UNIT/ML VIAL SQ SCH (05:57)
[2017-08-20 06:11] LABS: BUN/Creatinine Ratio 20 (6-26); Blood Urea Nitrogen 19 mg/dL (8-23); Calcium 9.4 mg/dL (8.6-10.3); Carbon Dioxide 28 mEq/L (23-29); Chloride 106 mEq/L (98-107); Glucose 92 mg/dL (70-105); Osmolality,Calculated 290 (280-300); Potassium 4.1 mEq/L (3.5-5.1); Sodium 139 mEq/L (136-145); eGFR For African Americans > 60 (> 60); eGFR For Non-African Americans 58 (> 60)
[2017-08-20 08:19] VITALS: BP 181/80
[2017-08-20] MEDS: Aspirin Enteric Coated 81 MG Tablet PO SCH (09:19)
[2017-08-20] MEDS: Loratadine 10 MG TABLET PO SCH (09:20)
[2017-08-20] MEDS: Insulin LISPRO 300 UNITS/3 ML VIAL SQ SCH (09:21)
[2017-08-20] MEDS: Gabapentin 300 MG CAPSULE PO SCH (09:21)
[2017-08-20] MEDS: IMDUR PO SCH (09:22)
--- NOTE | 2017-08-20 09:34 | Discharge Summary ---
Date of Encounter: 08/20/17 Time of Encounter: 09:00 - Discharge Diagnosis (1) Abdominal pain Priority: Primary Status: Acute Comments: Patient presents with one-week history of right mid abdominal pain. It is tender to palpation more laterally into lower ribs. Patient reports nausea without vomiting, no diarrhea. She describes the pain as achy, constant. She reports pain onset after falling at home on [address]. Patient was evaluated by GI and had EGD, showed gastritis. Specimens collected and results pending. Patient reports that she fell on her bottom, denies that she fell on her abdomen and her right side. GI note reports the patient fell onto her right side. Patient has had chest/abdomen x-ray, abdomen and pelvis CT, abdominal ultrasound , all are unremarkable. Pt remains tender on right inferior ribs, but states that it is better and is ready to go home. Pt has Tramadol at home for pain. Also suggested heat/ice and continued mobility. Chest/Abdomen X-ray 08/16/17 17:15 IMPRESSION: No acute findings in the abdomen or pelvis. Very small pleural effusions. D/ / Katerina Reyes MD / Katerina Reyes MD Interpreting Provider: Katerina Reyes MD Abdomen/Pelvis CT 08/16/17 19:14 IMPRESSION: No acute findings. D/ / Katerina Reyes MD / Katerina Reyes MD Interpreting Provider: Katerina Reyes MD Abdomen Ultrasound 08/18/17 14:00 IMPRESSION: Unremarkable right upper quadrant ultrasound. D/ / 08/18/2017 14:50:20 Mika Martin MD / Aurelia Farris Interpreting Provider: Mika Martin MD Qualifiers: Abdominal location: right lower quadrant Qualified Code(s): R10.31 - Right lower quadrant pain (2) CAD (coronary artery disease) Priority: Secondary Status: Chronic Comments: Patient denies chest pain. Prior history of 4 stents. Patient had stress in November, was negative. Patient had chest pain on arrival with adynamic troponin elevation. Continue home dose of aspirin, Plavix, statin and beta bryan. Patient will follow-up with cardiology in the office after discharge. Qualifiers: Coronary Disease-Associated Artery/Lesion type: [place] artery [place] vs. transplanted heart: hamilton heart Associated angina: without angina Qualified Code(s): I25.10 - Atherosclerotic heart disease of ham[place] coronary artery without angina pectoris (3) COPD (chronic obstructive pulmonary disease) Priority: Secondary Status: Chronic Comments: No acute exacerbation. Patient with chronic respiratory failure on home oxygen. Continue supplemental oxygen as needed. Lungs are clear throughout anterior and posterior lung glynn. No distress, no wheezing, rales, ronchi, stridor. Qualifiers: COPD type: unspecified COPD Qualified Code(s): J44.9 - Chronic obstructive pulmonary disease, unspecified (4) Diabetes mellitus Priority: Secondary Status: Chronic Comments: Well controlled. A1c is 5.7%. Continue home dose of medications, Accu-Chek schedule, continue diabetic diet. Qualifiers: Diabetes mellitus type: type 2 Diabetes mellitus complication status: with kidney complications Diabetes mellitus complication detail: with chronic kidney disease Diabetes mellitus longterm insulin use: without longterm use Chronic kidney disease stage: stage 3 (moderate) Qualified Code(s): E11.22 - Type 2 diabetes mellitus with diabetic chronic kidney disease; N18.3 - Chronic kidney disease, stage 3 (moderate); N18.3 - Chronic kidney disease, stage 3 (moderate) (5) CKD (chronic kidney disease) Priority: Secondary Status: Chronic Comments: Renal function is within normal limits. Serum creatinine is 0.93 GFR is 58. Significant improvement since arrival. Continue to avoid nephrotoxins. Qualifiers: Chronic kidney disease stage: stage 3 (moderate) Qualified Code(s): N18.3 - Chronic kidney disease, stage 3 (moderate) (6) Essential hypertension Priority: Secondary Status: Chronic Comments: Chronic. Patient has been hypertensive here, she has not been getting her lisinopril. Continue home dose. Continue all other home medications. (7) Edema of left lower extremity Priority: Secondary Status: Acute Comments: Patient reports increased edema and pain to the left lower extremity last night. Doppler was ordered and was negative for DVT or SVT. This morning patient states that she is able to bear weight, I witnessed her walking with walker. Edema is, for the most part, resolved and patient states that pain has resolved. Left lower extremity edema is back to baseline per patient. (8) Frequent falls Priority: Secondary Status: Acute Comments: She was frequent falls recently. PT/OT evaluation is home health PT. Patient reports that she does have adequate help from family at home. Will put in consultation for home health. (9) DVT prophylaxis Priority: Secondary Status: Acute Comments: Heparin subcutaneous. - Discharge Medications Home Medications: Aspirin [Lo-Dose Aspirin EC] 81 mg PO DAILY 08/17/17 [History] Clopidogrel [Plavix] 75 mg PO DAILY 08/17/17 [History] Gabapentin [Neurontin] 300 mg PO TID 08/17/17 [History] Isosorbide MONOnitrate (24 HR) [Imdur] 30 mg PO DAILY 08/17/17 [History] Lisinopril [Zestril] 10 mg PO DAILY 08/17/17 [History] Loratadine [Allergy Relief] 10 mg PO DAILY 08/17/17 [History] Memantine HCl [Namenda Xr] 28 mg PO DAILY 08/17/17 [History] Tramadol HCl [Ultram] 50 mg PO BID PRN 08/17/17 [History] Ammonium Lactate [Amlactin] 1 appl TP AD 08/18/17 [History] Atorvastatin [Lipitor] 10 mg PO HS 08/18/17 [History] Diclofenac Sodium [Voltaren] 2 gm TP TID 08/18/17 [History] Levothyroxine [Synthroid] 112 mcg PO DAILY 08/18/17 [History] Linagliptin [Tradjenta] 5 mg PO DAILY 08/18/17 [History] Metoprolol [Lopressor] 12.5 mg PO DAILY 08/18/17 [History] Atorvastatin [Lipitor] 10 mg PO DAILY tablet 08/20/17 [Rx] Levothyroxine [Synthroid] 112 mcg PO 0630 tablet 08/20/17 [Rx] Allergies/Adverse Reactions: 3 Allergy/AdvReac Type Severity Reaction Status Date / Time morphine Allergy Difficulty Verified 08/18/17 18:57 Breathing adhesive tape AdvReac Itching Verified 08/18/17 18:57 ciprofloxacin [From Cipro] AdvReac Difficulty Verified 08/18/17 18:57 Breathing Penicillins AdvReac Difficulty Verified 08/18/17 18:57 Breathing Sulfa (Sulfonamide AdvReac Difficulty Verified 08/18/17 18:57 Antibiotics) Breathing Procedures/tests Complete & Pending: Procedures Performed prior 72 hours Category Date Time Status CT head/brain wo con [CT] Routine Cat Scan 08/18/17 17:15 Completed abdominal ultrasound - limited [US abdomen limited] [US Exams 08/18/17 14:00 Completed ] Routine EV venous imaging LE LT Routine Y 08/20/17 18:51 Completed Date of admission: 08/17/17 00:17 Primary care physician: Fabian Cooper DO Consults: 08/17/17 15:59 Consult to Cardiology [CONS] Routine Comment: Consulting Provider: Cardiology Kathy Reason for Consult: Chest pain; history CAD with 4 stents. Stress test earlier this year negative Call Completed: Yes 08/18/17 15:56 Consult to Gastroenterology [CONS] Routine Consulting Provider: Gastroenterology Kathy Reason for Consult: persistent ABD pain Call Completed: Yes Discharging clinician: Lorena Garcia Anticipated date of discharge: 08/20/17 - Patient Status Disposition: Home Health Service Condition: Good Functional capacity at discharge: uses cane/walker Overall status at discharge: patient is progressing back to baseline - Discharge Instructions Follow Up With: Fabian Cooper DO [Primary Care Provider] - 08/25/17 11:30 am Additional Instructions: Please follow up with Fabian Cooper as scheduled on the . Return to the emergency department as needed for any other problems or concerns , or if her symptoms return or worsen. Continue home medications. Follow-up with home health and physical therapy. Return to her normal level of functioning and diet as tolerated. Hospital course: Ms. Beck is a 82 year old female with past medical history CAD, COPD, diabetes , CAD, CHF, hypertension, fibromyalgia. She presented to the emergency room status post fall for generalized weakness, fatigue. Per admission note, patient said that she fell on her right side a few days prior to arrival and having right mid abdominal pain and right hip pain. She is able to bear weight as evidenced by steady gait with walker today. She also reported intermittent chest pain with no relation to exertion or food, associated with some shortness of breath, she states this is from her COPD. She also reports productive cough and sputum. Today, discharge, patient only reports the right mid lateral abdominal and rib pain. Patient reports that she has tramadol at home. It is tender to palpation in his most likely due to her fall and is musculoskeletal in nature. Her lungs are clear, she denies any cough. Patient did have mild, flat adynamic troponin I elevation on admission. She was evaluated by cardiology and no further testing was recommended. She will follow up in the office with cardiology after discharge. Renal function has returned to within normal limits, GFR this morning was 58. She has been mildly hypertensive, she was not receiving all of her home blood pressure medications. They have been restarted she will continue them at home. No changes made. Patient states that she feels significantly better and is ready to go home. She is able to ambulate with a walker and she does at home. Left lower extremity edema and pain have resolved patient states edema is significantly better. It is equal in distribution and amount to right lower extremity, which is normal for patient. Her labs and vitals are stable. Patient is appropriate and safe for discharge. - Time Spent with Patient Total time spent providing and/or coordinating discharge services: Less than 30 minutes - Constitutional Vitals: Temp Pulse Resp BP Pulse Ox 97.9 F 64 16 181/80 96 08/20/17 08:18 08/20/17 08:18 08/20/17 08:18 08/20/17 08:18 08/20/17 08:18 General appearance: Present: mild distress, A&O X 3 (occasionally confused), morbidly obese, pleasant, no acute distress, answers questions appropriately - Head Head exam: Present: atraumatic, normal inspection, normocephalic - Eye Eye exam: Present: normal appearance, conjuntiva pink, sclera anicteric - Neck Neck exam general surgery: Present: supple, trachea midline. Absent: lymphadenopathy - Respiratory Respiratory exam: Present: chest wall tenderness, CTAB. Absent: accessory muscle use, decreased breath sounds, rales, respiratory distress, rhonchi, wheezes - Cardiovascular Cardiovascular exam: Present: RRR, +S1, +S2. Absent: diastolic murmur, gallop, rubs, systolic murmur - GI/Abdominal GI/Abdominal exam: Present: normal bowel sounds, soft. Absent: distended, hepatomegaly, tenderness - Extremities Exam Extremities exam: Present: normal capillary refill, normal inspection, warm, radial pulses palpable and symmetrical. Absent: calf tenderness, cyanotic, pedal edema, tenderness - Neurological Exam Neurological exam: Present: alert, oriented X3, no focal deficits, strengths equal and symetr throughout. Absent: facial droop, speech deficit - Skin Skin exam: Present: dry, intact, normal color, warm. Absent: rash
--- NOTE | 2017-08-20 09:51 | Physician Discharge Referral ---
Home Health/Hosp Referral Info Transfer to: Home Health Provider in Charge Post Discharge: PCP - Diagnosis (1) Abdominal pain Priority: Primary Status: Acute (2) CAD (coronary artery disease) Priority: Secondary Status: Chronic (3) COPD (chronic obstructive pulmonary disease) Priority: Secondary Status: Chronic (4) Diabetes mellitus Priority: Secondary Status: Chronic (5) CKD (chronic kidney disease) Priority: Secondary Status: Chronic (6) Essential hypertension Priority: Secondary Status: Chronic (7) Edema of left lower extremity Priority: Secondary Status: Resolved (8) Frequent falls Priority: Secondary Status: Acute (9) DVT prophylaxis Priority: Secondary Status: Acute - Respiratory Orders Oxygen / L per min Smoking Cessation: Smoking cessation has been advised. For more information, call the [employer] (?) Tobacco Quit Line at 6-937-YCIV-NOW. - Diet/Nutrition Diet/Nutrition Orders: Regular - Activity Activity Orders: Walker - Services Needed Following services are medically necessary services: Nursing, Home Health Aide, Physical Therapy, Occupational Therapy - Transfer Medications Home Medications: Aspirin [Lo-Dose Aspirin EC] 81 mg PO DAILY 08/17/17 [History] Clopidogrel [Plavix] 75 mg PO DAILY 08/17/17 [History] Gabapentin [Neurontin] 300 mg PO TID 08/17/17 [History] Isosorbide MONOnitrate (24 HR) [Imdur] 30 mg PO DAILY 08/17/17 [History] Lisinopril [Zestril] 10 mg PO DAILY 08/17/17 [History] Loratadine [Allergy Relief] 10 mg PO DAILY 08/17/17 [History] Memantine HCl [Namenda Xr] 28 mg PO DAILY 08/17/17 [History] Tramadol HCl [Ultram] 50 mg PO BID PRN 08/17/17 [History] Ammonium Lactate [Amlactin] 1 appl TP AD 08/18/17 [History] Atorvastatin [Lipitor] 10 mg PO HS 08/18/17 [History] Diclofenac Sodium [Voltaren] 2 gm TP TID 08/18/17 [History] Levothyroxine [Synthroid] 112 mcg PO DAILY 08/18/17 [History] Linagliptin [Tradjenta] 5 mg PO DAILY 08/18/17 [History] Metoprolol [Lopressor] 12.5 mg PO DAILY 08/18/17 [History] Atorvastatin [Lipitor] 10 mg PO DAILY tablet 08/20/17 [Rx] Levothyroxine [Synthroid] 112 mcg PO 0630 tablet 08/20/17 [Rx] Allergies/Adverse Reactions: 3 Allergy/AdvReac Type Severity Reaction Status Date / Time morphine Allergy Difficulty Verified 08/18/17 18:57 Breathing adhesive tape AdvReac Itching Verified 08/18/17 18:57 ciprofloxacin [From Cipro] AdvReac Difficulty Verified 08/18/17 18:57 Breathing Penicillins AdvReac Difficulty Verified 08/18/17 18:57 Breathing Sulfa (Sulfonamide AdvReac Difficulty Verified 08/18/17 18:57 Antibiotics) Breathing Certification: Further, I certify that my clinical findings support that this patient is homebound (i.e. absences from home require considerable and taxing effort and are for medical reasons or spiritism services or infrequently or short duration when for other reasons) because: Homebound Reason: Patient requires assistance of a person or device to safely leave home, Leaving home requires considerable and taxing effort due to condition Attestation: My signature below is to certify that this patient is under my care and that I, or nurse practitioner, or a physician's histology assistant working with me, has a face-to -face encounter with this patient.
== END 2017-08-20 13:54 | disposition home health service (06) ==
LOC: EMEROO 16:26 → 3BNU 16:26
PROVIDERS: ADMIT Internal Medicine; ATTEND Registered Nurse

== ENCOUNTER 2019-01-23 17:52 | Inpatient (IN) ==
[2019-01-23] MEDS ORDERED: Aspirin 81 MG TAB.CHEW PO ONE (17:55)
--- NOTE | 2019-01-23 18:01 | Emergency Department Note ---
Disposition Clinical Impression: Chest pain Qualifiers: Chest pain type: unspecified Qualified Code(s): R07.9 - Chest pain, unspecified Disposition: Admitted As Inpatient Condition: Undetermined Forms: ED Satisfaction Letter Time of Disposition: 19:33 Chest Pain HPI - General Chief Complaint: ED Chest Pain Stated Complaint: chest pain Time Seen by Provider: 01/23/19 17:55 Source: patient, EMS Mode of arrival: EMS Limitations: no limitations Vital Signs Reviewed: Yes Nursing Notes Reviewed: Yes - History of Present Illness HPI Narrative: 83-year-old female with history of hypertension, diabetes, IA with stents arrives to the emergency department retrosternal chest pain radiating to her left shoulder and left hand. Patient states that she is unsure if this is a previous IA. She has associated shortness of breath with diaphoresis. She states the pain has been intermittent in nature over the course of the past 5 days. The patient was administered 1 nitroglycerin in route which did help with her symptoms. She denies any other complaints at this time. She is answering questions appropriately. - Related Data Home Medications Medication Instructions Recorded Confirmed Aspirin [Lo-Dose Aspirin EC] 81 mg PO DAILY 08/17/17 01/23/19 Clopidogrel [Plavix] 75 mg PO DAILY 08/17/17 01/23/19 Gabapentin [Neurontin] 300 mg PO TID 08/17/17 01/23/19 Isosorbide MONOnitrate (24 HR) 30 mg PO DAILY 08/17/17 01/23/19 [Imdur] Lisinopril [Zestril] 5 mg PO DAILY 08/17/17 01/23/19 Memantine HCl [Namenda Xr] 28 mg PO DAILY 08/17/17 01/23/19 Atorvastatin [Lipitor] 10 mg PO HS 08/18/17 01/23/19 Linagliptin [Tradjenta] 5 mg PO DAILY 08/18/17 01/23/19 Metoprolol [Lopressor] 12.5 mg PO BID 08/18/17 01/23/19 Cholecalciferol (Vitamin D3) 1,000 unit PO DAILY 01/23/19 01/23/19 [Vitamin D] [place]-3/Dha/Epa/Fish Oil [Fish Oil 1 each PO DAILY 01/23/19 01/23/19 1,000 mg Softgel] Previous Rx's Medication Instructions Recorded Levothyroxine [Synthroid] 112 mcg PO 0630 tablet 08/20/17 Allergies Allergy/AdvReac Type Severity Reaction Status Date / Time morphine Allergy Difficulty Verified 01/23/19 18:03 Breathing adhesive tape AdvReac Itching Verified 01/23/19 18:03 ciprofloxacin [From Cipro] AdvReac Difficulty Verified 01/23/19 18:03 Breathing Penicillins AdvReac Difficulty Verified 01/23/19 18:03 Breathing Sulfa (Sulfonamide AdvReac Difficulty Verified 01/23/19 18:03 Antibiotics) Breathing All systems ED: reviewed and negative except as stated. Constitutional: Denies: fever, chills, weakness Eyes: Denies: vision change ENT ED: Denies: dysphagia Cardiovascular: Reports: chest pain, dyspnea on exertion. Denies: edema, syncope Respiratory: Reports: dyspnea. Denies: cough, sputum production Gastrointestinal: Reports: nausea. Denies: abdominal pain, vomiting, diarrhea, constipation Genitourinary: Denies: urgency, dysuria Musculoskeletal: Denies: back pain, neck pain Integumentary: Denies: rash Neurological: Denies: headache Chest Pain PMH - Past Medical History Medical history: Reports: arthritis, CHF (diastolic), COPD, coronary artery disease, diabetes, fibromyalgia, hypertension, renal disease, thyroid disease Surgical history: Reports: cholecystectomy, other (left subclavian artery stenosis surgery) Psychiatric history: Reports: no psych history - Social History Smoking Status: Former smoker Alcohol use: Reports: none Drug use: Reports: none Physical Exam - General Limitations: no limitations General appearance: alert, in no apparent distress - Head Head exam: atraumatic, normocephalic, normal inspection - Eye Eye exam: Present: normal appearance, PERRL, EOMI - ENT ENT exam: normal exam, normal oropharynx, mucous membranes moist - Neck Neck exam: Present: normal inspection, full ROM, trachea midline - Chest Chest inspection: Present: normal inspection, symmetric chest wall rise - Respiratory Respiratory exam: Present: normal lung sounds bilaterally - Cardiovascular Cardiovascular exam: Present: regular rate, normal rhythm, normal heart sounds - Abdominal Exam Abdominal exam: Present: soft, Non-Tender. Absent: tenderness, distention, guarding, rebound, rigidity - Extremities Exam Extremities exam: Present: normal inspection, full ROM, normal capillary refill. Absent: tenderness, pedal edema - Neurological Exam Neurological exam: Present: alert, oriented X3 - Skin Skin exam: Present: warm, dry, intact, normal color Course Vital Signs Temperature 98.2 F 01/23/19 17:55 Pulse Rate 66 01/23/19 17:55 Respiratory Rate 18 01/23/19 17:55 Blood Pressure 169/65 01/23/19 17:55 O2 Sat by Pulse Oximetry 91 01/23/19 17:55 Temperature 98.2 F 01/23/19 17:55 Pulse Rate 62 01/23/19 19:10 Respiratory Rate 17 01/23/19 19:10 Blood Pressure 170/88 01/23/19 19:10 O2 Sat by Pulse Oximetry 94 01/23/19 19:10 Oxygen Delivery Oxygen Delivery Nasal Cannula Chest Pain - MDM Narrative Medical decision making narrative: Patient's workup in the emergency department demonstrates findings concerning for possible ACS. Patient is chest pain-free at this time and her blood pressures continued to decline after 3 nitroglycerin. She is currently 170/90. The patient is otherwise resting comfortably in the room. The patient received aspirin here in the ED. We will admit the patient to the hospital at this time for ACS rule out. Patient made aware and agrees to plan. Accepted by Dr. Pike. - Lab Data Lab results reviewed: Yes I reviewed the patient's lab results. Result diagrams: 01/23/19 18:21 01/23/19 18:21 Lab Results 01/23/19 01/23/19 Range/Units 18:21 18:21 WBC 6.5 (4.3-11.1) K/mcL RBC 3.87 (3.82-4.97) M/mcL Hgb 12.5 (11.5-15.4) g/dL Hct 38.7 (35.3-44.9) % MCV 100.0 (83.0-100.0) fL MCH 32.3 (28.0-33.3) pg MCHC 32.3 (31.6-35.5) g/dL RDW 13.4 (11.5-14.5) % Plt Count 230 (140-400) K/mcL MPV 9.0 L (9.4-12.4) fL Immature Gran % 0.3 (0-4) % Seg Neutrophils % 58.0 % Lymphocytes % 24.3 % Monocytes % 13.6 % Eosinophils % 2.9 % Basophils % 0.9 % Neutrophils # 3.7 (1.6-8.9) K/mcL Lymphocytes # 1.6 (0.6-4.6) K/mcL Monocytes # 0.9 (0.0-1.3) K/mcL Eosinophils # 0.2 (0.0-0.6) K/mcL Basophils # 0.1 (0.0-0.2) K/mcL Sodium 140 (136-145) mEq/L Potassium 4.1 (3.5-5.1) mEq/L Chloride 106 (98-107) mEq/L Carbon Dioxide 28 (23-29) mEq/L BUN 25 H (8-23) mg/dL Creatinine 1.19 (0.60-1.20) mg/dL Est GFR ( Amer) 53 L (> 60) Est GFR (Non-Af Amer) 43 L (> 60) BUN/Creatinine Ratio 21 (6-26) Glucose 108 H (70-105) mg/dL Calculated Osmolality 295 (280-300) Calcium 10.0 (8.6-10.3) mg/dL Troponin I < 0.03 (< 0.04) ng/mL - Radiology Data Radiology results reviewed: Yes I reviewed the patient's radiology results. Chest X-Ray 01/23/19 17:55 IMPRESSION: Diffuse ground-glass attenuation, right greater than left. Findings are increased from the prior and may represent pulmonary edema. Developing chronic interstitial prominence is not excluded. There is no consolidation to suggest pneumonia. D/ / Stuart Taylor / Stuart Taylor Interpreting Provider: Stuart Taylor - EKG Data EKG attestation: Yes I reviewed and interpreted this EKG. EKG results narrative: Heart rate 70 beats for minute. Normal sinus rhythm with bigeminy. No ST elevation or ST depression noted. Small amount of artifact noted but there is a noted Q-wave in lead 3. No other acute changes noted.
[2019-01-23] MEDS: Nitroglycerin 0.4 MG TAB.SUBL SL PRN ×2 (18:14→18:33)
[2019-01-23 18:36] LABS: Basophils # 0.1 K/mcL (0.0-0.2); Basophils % 0.9 %; Eosinophils # 0.2 K/mcL (0.0-0.6); Eosinophils % 2.9 %; Hematocrit 38.7 % (35.3-44.9); Hemoglobin 12.5 g/dL (11.5-15.4); Immature Granulocytes % 0.3 % (0-4); Lymphocytes # 1.6 K/mcL (0.6-4.6); Lymphocytes % 24.3 %; Mean Corpuscular HGB Conc 32.3 g/dL (31.6-35.5); Mean Corpuscular Hemoglobin 32.3 pg (28.0-33.3); Monocytes # 0.9 K/mcL (0.0-1.3); Monocytes % 13.6 %; Neutrophils # 3.7 K/mcL (1.6-8.9); Platelet Count 230 K/mcL (140-400); Red Blood Count 3.87 M/mcL (3.82-4.97); Red Cell Distribution Width 13.4 % (11.5-14.5); White Blood Count 6.5 K/mcL (4.3-11.1)
[2019-01-23 18:54] LABS: BUN/Creatinine Ratio 21 (6-26); Blood Urea Nitrogen 25 mg/dL (8-23); Carbon Dioxide 28 mEq/L (23-29); Chloride 106 mEq/L (98-107); Glucose 108 mg/dL (70-105); Osmolality,Calculated 295 (280-300); Potassium 4.1 mEq/L (3.5-5.1); Sodium 140 mEq/L (136-145); Troponin I < 0.03 ng/mL (< 0.04); eGFR For African Americans 53 (> 60); eGFR For Non-African Americans 43 (> 60)
[2019-01-23] MEDS ORDERED: Dextrose Gel 15 GM/37.5 ML TUBE PO PRN ×2 (23:37)
[2019-01-23] MEDS ORDERED: *HR* Dextrose 50 % in Water (Syg) 50 ML SYRINGE IVP PRN (23:37)
[2019-01-23] MEDS ORDERED: D5% in Water 1,000 ML IVC PRN (23:38)
[2019-01-23] MEDS ORDERED: Naloxone 0.4 MG/ML INJ IVP PRN (23:40)
[2019-01-23] MEDS ORDERED: traMADol 50 MG TABLET PO PRN (23:40)
[2019-01-23] MEDS ORDERED: Ondansetron 4 MG/2 ML VIAL IVP PRN (23:40)
[2019-01-23] MEDS ORDERED: Nitroglycerin 25 MG/250 ML INFUS..BTL IVC SCH (23:45)
[2019-01-24] MEDS ORDERED: Pantoprazole 40 MG VIAL IVP ONE (00:02)
[2019-01-24] MEDS: Insulin LISPRO 300 UNITS/3 ML VIAL SQ SCH ×5 (00:07→20:32)
--- NOTE | 2019-01-24 00:07 | Internal Med History&Physical ---
Date of Encounter: 01/23/19 Time of Encounter: 22:45 Internal Medicine - H&P: HPI Chief complaint: CP Admitted From: Emergency Dept Plans for Post Hospital Care: Home History of present illness: Ms. Beck is a 83 year old female w/PMH of previous HI w/stents, CAD, diastolic CHF, diabetes, HTN, HLD, arthritis, COPD, fibromyalgia, CKD, and thyroid disease presents from the ED with chief complaint of chest pressure that began on and continued into Thursday, Thursday, and today with exertion. Patient reports pain started evening after eating spaghetti meatballs which she usually does not eat. Patient describes pressure as centralized in chest and accompanied by radiation to left arm all the way down to her thumb, center of her back, left jaw. Associated symptoms: Nausea and diaphoresis. Patient reports ankle swelling bilaterally for the past week. Aggravating factor: Exertion. Alleviating factor: Nitroglycerin and rest. Patient states she has never had chest pressure like this before. Patient is a former smoker smoking less than 1 pack per day and quitting in 1997. Patient also reports decreased appetite for the past several days and pain at left breast near breast bone. Patient denies recent illness, fever, chills, vomiting, headache, changes in vision, unusual bleeding, abdominal pain, cough, chest congestion, diarrhea, constipation, dizziness, lightheadedness, pre-syncope, or syncope. Past Med Surg Social Fam HX - Past Medical History Source: patient, old records reviewed, obtained from family Medical history: arthritis, CHF, COPD, coronary artery disease, diabetes, fibromyalgia, hyperlipidemia, hypertension, myocardial infarction, renal disease, thyroid disease Additional medical history: MACULAR DEGENERATION, peripheral diabetic neuropathy. Psychiatric history: no psych history - Past Surgical History Surgical History: cholecystectomy Additional surgical history: [employer] BACK PAIN STIMULATOR, 4 cardiac stents, Left subclavian artery angioplasty - Social History Smoking Status: Former smoker Packs per day: <1 PPD - Reports quitting in 1997 Smokeless Tobacco Status: No Alcohol use: none Drug use: none Current living situation: Home Activity Level: Independent ambulation, Uses cane/walker Recent Out of Country Travel Within the Last 8 Weeks: No Exposure or Possible Exposure to Illness During Travel: No - Family History Sister Race: Family Member Ethnicity: Non- Living Status: Age at : 80 Cause of : Breast cancer Hx Family Cardiac Disorders: Yes (CVA x2) Hx Family Cancer: Yes (Breast) Hx Family Endocrine Disorder: Yes (DM) Hx Family Neurologic Disorders: Yes (CVA) Mother Race: Family Member Ethnicity: Non- Living Status: Age at : 58 Cause of : CHF Hx Family Cardiac Disorders: Yes (CAD, CHF) Father Race: Family Member Ethnicity: Non- Living Status: Age at : 83 Cause of : Colon cancer Hx Family Cancer: Yes (Colon) Brother Race: Family Member Ethnicity: Non- Living Status: Age at : 60 Cause of : Asthma Hx Family Cardiac Disorders: Yes (CAD) Hx Family Respiratory Disorders: Yes (Asthma) Internal Medicine - H&P: Meds Aspirin [Lo-Dose Aspirin EC] 81 mg PO DAILY 08/17/17 [History] Clopidogrel [Plavix] 75 mg PO DAILY 08/17/17 [History] Gabapentin [Neurontin] 300 mg PO TID 08/17/17 [History] Isosorbide MONOnitrate (24 HR) [Imdur] 30 mg PO DAILY 08/17/17 [History] Lisinopril [Zestril] 5 mg PO DAILY 08/17/17 [History] Memantine HCl [Namenda Xr] 28 mg PO DAILY 08/17/17 [History] Atorvastatin [Lipitor] 10 mg PO HS 08/18/17 [History] Linagliptin [Tradjenta] 5 mg PO DAILY 08/18/17 [History] Metoprolol [Lopressor] 12.5 mg PO BID 08/18/17 [History] Levothyroxine [Synthroid] 112 mcg PO 0630 tablet 08/20/17 [Rx] Cholecalciferol (Vitamin D3) [Vitamin D] 1,000 unit PO DAILY 01/23/19 [History] [place]-3/Dha/Epa/Fish Oil [Fish Oil 1,000 mg Softgel] 1 each PO DAILY 01/23/19 [History] Allergy/AdvReac Type Severity Reaction Status Date / Time morphine Allergy Difficulty Verified 01/23/19 18:03 Breathing adhesive tape AdvReac Itching Verified 01/23/19 18:03 ciprofloxacin [From Cipro] AdvReac Difficulty Verified 01/23/19 18:03 Breathing Penicillins AdvReac Difficulty Verified 01/23/19 18:03 Breathing Sulfa (Sulfonamide AdvReac Difficulty Verified 01/23/19 18:03 Antibiotics) Breathing All Systems PM: A 10-system review of systems was performed and is negative for pertinent findings except as documented above in the HPI. - Constitutional Constitutional: as per HPI, weakness, no chills, no fever(s), no night sweats - EENT Eyes: no change in vision, no discharge, no pain, no photophobia Ears: no ear discharge, no ear pain, no tinnitus Nose, mouth and throat: no dysphagia, no nasal discharge, no neck pain, no sore throat - Breasts Breasts: as per HPI, other (Pain in left breast near breast bone) - Cardiovascular Cardiovascular ROS IM: no chest pain, no diaphoresis, no dyspnea, no lightheadedness, no palpitations, no syncope - Respiratory Respiratory: as per HPI, no cough, no dyspnea, no wheezing, no excessive phlegm production - Gastrointestinal Gastrointestinal: as per HPI, nausea, no abdominal pain, no diarrhea, no hematemesis, no hematochezia, no melena, no vomiting - Genitourinary Genitourinary: as per HPI, no change in urinary stream, no dysuria, no flank pain, no hematuria Menstruation: as per HPI - Musculoskeletal Musculoskeletal ROS IM: as per HPI, arthralgias, no numbness, no tingling - Integumentary Integumentary IM: no rash, no unusual bruising - Neurological Neurological ROS: as per HPI, weakness, no confusion, no convulsions, no focal weakness, no numbness, no tingling, no tremor(s) - Psychiatric Psychiatric: as per HPI - Endocrine Endocrine IM: as per HPI - Hematologic/Lymphatic Hematologic/Lymphatic: no easy bruising - Allergic/Immunologic Allergic/Immunologic: as per HPI - Constitutional Vitals: Temp Pulse Resp BP Pulse Ox 97.4 F L 57 16 208/68 94 01/23/19 23:36 01/23/19 23:36 01/23/19 23:36 01/23/19 23:36 01/23/19 23:36 General appearance: Present: A&O X 0, mild distress (Chest pressure), A&O X 3, pleasant, obese, answers questions appropriately Exam: Patient examined at bedside. Patient resting in bed w/daughter present. Patient reporting continued pressure in her central chest along with pain in left arm going all the way down to her thumb. Still reports pain in her left jaw and central back. Patient denies any other symptoms at this time. VS: 97.4 temp, HR 57, RR 16, BP 208/68, SPO2 94% on 2 L via nasal cannula. - Head Head exam: Present: atraumatic, normocephalic - Eye Eye exam: Present: PERRL, conjuntiva pink, sclera anicteric Pupils: Present: PERRL - ENT ENT exam: Present: normal exam - Neck Neck exam general surgery: Present: normal inspection, supple, trachea midline. Absent: lymphadenopathy - Respiratory Respiratory exam: Present: CTAB. Absent: accessory muscle use, rales, rhonchi, wheezes - Cardiovascular Cardiovascular exam: Present: RRR, +S1, +S2. Absent: diastolic murmur, gallop, rubs, systolic murmur - GI/Abdominal GI/Abdominal exam: Present: normal bowel sounds, soft, no peritoneal signs. Absent: distended, tenderness - Rectal Rectal exam: Present: deferred - Additional comments: exam deferred. - Extremities Exam Extremities exam: Present: pedal edema, warm, radial pulses palpable and symmetrical. Absent: calf tenderness, cyanotic - Back Exam Back exam: Present: normal inspection - Neurological Exam Neurological exam: Present: alert, CN II-XII intact, oriented X3, no focal deficits. Absent: pronater drift, facial droop, speech deficit - Psychiatric Psychiatric exam: Present: normal affect, normal mood - Skin Skin exam: Present: dry, intact Internal Med - H&P Results - Labs CBC & Chem 7: 01/24/19 00:29 01/23/19 18:21 Labs: Short CBC 01/23/19 Range/Units 18:21 WBC 6.5 (4.3-11.1) K/mcL Hgb 12.5 (11.5-15.4) g/dL Hct 38.7 (35.3-44.9) % Plt Count 230 (140-400) K/mcL Neutrophils # 3.7 (1.6-8.9) K/mcL BMP 01/23/19 18:21 Sodium 140 Potassium 4.1 Chloride 106 Carbon Dioxide 28 BUN 25 H Creatinine 1.19 Glucose 108 H Calcium 10.0 Cardiac Enzymes 06/09/19 Range/Units 18:21 Troponin I < 0.03 (< 0.04) ng/mL - EKG Data EKG shows normal: sinus rhythm - EKG Data Prior EKG available for review: yes EKG comments: 01/24/19 00:21 EKG dated 11/05/12 shows sinus rhythm with prolonged QT interval and inferior infarct of undetermined age. EKG dated 08/16/17 shows probable sinus rhythm with artifact limiting interpret ation. EKG dated 01/20/19 shows electronic atrial pacemaker with electronic ventricular pacemaker. (Pt. denies ever having a Pacemaker) EKG dated 01/23/19 shows sinus rhythm with ventricular bigeminy and left atrial enlargement. Minimal ST depression in lateral leads. 01/24/19 00:38 - Impressions ITS Impressions Chest X-Ray 01/23/19 17:55 IMPRESSION: Diffuse ground-glass attenuation, right greater than left. Findings are increased from the prior and may represent pulmonary edema. Developing chronic interstitial prominence is not excluded. There is no consolidation to suggest pneumonia. D/ / Stuart Taylor / Stuart Taylor Interpreting Provider: Stuart Taylor - Diagnostic Studies CT scan - chest Additional comments: Impressions Chest X-Ray 01/23/19 17:55 IMPRESSION: Diffuse ground-glass attenuation, right greater than left. Findings are increased from the prior and may represent pulmonary edema. Developing chronic interstitial prominence is not excluded. There is no consolidation to suggest pneumonia. D/ / Stuart Taylor / Stuart Taylor Interpreting Provider: Stuart Taylor - Assessment and Plan (1) Chest pain Current Visit: Yes Status: Acute Assessment and plan: Acute CP that began on and continued into Thursday, Thursday, and today with exertion. Patient reports pain started evening after eating. Patient describes pressure as centralized in chest and accompanied by radiation to left arm all the way down to her thumb, center of her back, left jaw. Associated symptoms: Nausea and diaphoresis. Patient reports ankle swelling bilaterally for the past week. Aggravating factor: Exertion. Alleviating factor: Nitroglycerin and rest. Patient states she has never had chest pressure like this before. Patient is a former smoker smoking less than 1 pack per day and quitting in 1997. Last Echocardiogram and nuclear stress test were in 10/2016. Pt. continues to report chest pressure w/radiation to left arm, left jaw, and central back on exam. Initial troponin <0.03. Trending. ASA in ED. 80 mg of Lipitor once. SL nitro given then changed to gtt d/t ongoing CP. Will stop at 02:00 for stress test. Metoprolol and isosorbide held d/t planned nuclear stress test in a.m. Cardiac monitoring. Echocardiogram ordered. Nuclear stress test ordered if troponins remain WNL. Cardiology consult ordered but not confirmed d/t time of night placed so a.m. team to follow-up and confirm. Consult placed d/t pts. hx of previous HI w/stents x4, ongoing CP, and risk factors. Patient is high risk for cardiac event and further morbidity d/t current CP w/radiation, hx of HI w/stents; and risk factors of diastolic CHF, CAD, DM, HLD, HTN. Observation. Qualifiers: Chest pain type: other chest pain Qualified Code(s): R07.89 - Other chest pain; R07.8 - Other chest pain (2) CAD (coronary artery disease) Current Visit: Yes Status: Chronic Assessment and plan: Hx of chronic CAD. Previous HI w/stents x4. History of diastolic CHF, diabetes, HTN, HLD, and thyroid disease. Cardiac monitoring. Continue pts. HLD and HTN medications. Qualifiers: Coronary Disease-Associated Artery/Lesion type: [place] artery [place] vs. transplanted heart: [place] heart Associated angina: without angina Qualified Code(s): I25.10 - Atherosclerotic heart disease of [place] coronary artery without angina pectoris (3) Diastolic CHF Current Visit: Yes Status: Chronic Assessment and plan: Hx of chronic diastolic CHF. Minor non-pitting pedal edema in bilateral LEs. Cardiac monitoring. Echocardiogram ordered. 1.5L daily fluid restriction. Qualifiers: Heart failure chronicity: chronic Qualified Code(s): I50.32 - Chronic diastolic (congestive) heart failure (4) HTN (hypertension) Current Visit: Yes Status: Chronic Assessment and plan: Hx of chronic HTN. Monitor pt. and VS. Holding pts. Isosorbide mononitrate and metoprolol d/t planned nuclear stress test in a.m. IVP hydralazine ordered w/parameters. Qualifiers: Hypertension type: essential hypertension Qualified Code(s): I10 - Essential (primary) hypertension (5) HLD (hyperlipidemia) Current Visit: Yes Status: Chronic Assessment and plan: Hx of chronic HLD. Lipid panel in a.m. labs. Continue pts. Lipitor. Qualifiers: Hyperlipidemia type: pure hypercholesterolemia Qualified Code(s): E78.00 - Pure hypercholesterolemia, unspecified; E78.0 - Pure hypercholesterolemia (6) Thyroid disease Current Visit: Yes Status: Chronic Assessment and plan: Hx of chronic thyroid disease. TSH and Free T4 in a.m. labs. Continue pts. Synthroid. (7) CKD (chronic kidney disease) Current Visit: Yes Status: Chronic Assessment and plan: Hx of CKD. Currently stage III w/GFR of 43 and creatinine of 1.19. Will use IV fluids judiciously if warranted d/t pts. hx of diastolic CHF. Monitor I&O. Avoid nephrotoxins. Qualifiers: Chronic kidney disease stage: stage 3 (moderate) Qualified Code(s): N18.3 - Chronic kidney disease, stage 3 (moderate) (8) COPD (chronic obstructive pulmonary disease) Current Visit: Yes Status: Chronic Assessment and plan: Hx of COPD. Stable. Supplemental O2 w/titration and SpO2 monitoring. Add breathing txs if warranted. Qualifiers: COPD type: unspecified COPD Qualified Code(s): J44.9 - Chronic obstructive pulmonary disease, unspecified (9) Diabetes mellitus Current Visit: Yes Status: Chronic Assessment and plan: Hx of diabetes controlled by oral anti-hyperglycemic medications. Will hold orals and administer low dose correction sliding scale insulin w/hypoglycemic protocol. BG checks Q6HR while NPO. SS insulin Q6HR while NPO. Change BG checks and SS insulin to ACHS once diet is ordered. A1c in a.m. labs. 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 Plavix. Bilateral SCDs ordered if Plavix stopped. - Time Spent With Patient Total time spent is greater than 50% in coordination of care (as documented) at patient's floor/unit and/or counseling patient: Greater than 35 minutes
[2019-01-24] MEDS: Gabapentin 300 MG CAPSULE PO SCH ×4 (00:13→20:18)
[2019-01-24] MEDS ORDERED: 0.9 % Sodium Chloride 500 ML ONE (00:20)
[2019-01-24 01:39] LABS: Hematocrit 35.9 % (35.3-44.9); Hemoglobin 11.7 g/dL (11.5-15.4); Mean Corpuscular HGB Conc 32.6 g/dL (31.6-35.5); Mean Corpuscular Volume 101.1 fL (83.0-100.0); Mean Platelet Volume 9.6 fL (9.4-12.4); Platelet Count 207 K/mcL (140-400); Red Blood Count 3.55 M/mcL (3.82-4.97); Red Cell Distribution Width 13.4 % (11.5-14.5); White Blood Count 4.7 K/mcL (4.3-11.1)
[2019-01-24 02:01] LABS: Calcium 9.7 mg/dL (8.6-10.3); Chol/HDL Ratio 2.9 (0-4.9); Magnesium 1.6 mg/dL (1.6-2.6); Potassium 3.6 mEq/L (3.5-5.1)
[2019-01-24 02:15] LABS: Thyroid Stimulating Hormone 1.751 mcIU/mL (0.340-5.600)
[2019-01-24] MEDS: Acetaminophen 325 MG TABLET PO PRN ×2 (02:57→15:33)
[2019-01-24] MEDS ORDERED: Regadenoson 0.4 MG/5 ML SYRINGE IVP ONE (06:19)
--- NOTE | 2019-01-24 06:49 | Event Note ---
Date of Encounter: 01/24/19 Time of Encounter: 06:46 I sent a Vocera to Dr. Carolina overnight regarding my Cardiology consult for this pt. d/t my concern for possible blockage/stent occlusion, transient bradycardia, current CP w/radiation, and risk factors. Dr. Carolina acknowledged this Vocera so Cardiology has been notified of this consult.
[2019-01-24 06:51] LABS: Estimated Average Glucose 140 mg/dl; Hemoglobin A1C 6.5 %
[2019-01-24] MEDS: Aspirin Enteric Coated 81 MG Tablet PO SCH ×3 (10:55→17:22)
--- NOTE | 2019-01-24 15:17 | Internal Med Progress Note ---
Hospitalist Progress Note - Encounter Date of Encounter: 01/24/19 Time of Encounter: 15:14 - Subjective Interval History: Ms. Beck is a 83 year old female w/PMH of previous [place] w/stents, CAD, diastolic CHF, diabetes, HTN, HLD, arthritis, COPD, fibromyalgia, CKD, and thyroid disease presents from the ED with chief complaint of chest pressure that began on and continued till today with exertion. Patient reports pain started evening after eating spaghetti meatballs which she usually does not eat. Patient describes pressure as centralized in chest and accompanied by radiation to left arm all the way down to her thumb, center of her back, left jaw. Patient is a former smoker smoking less than 1 pack per day and quitting in 1997. She was admitted in the hospital placed on cardiac care unit nurse. Her serial troponin came back is negative. She denied an active chest pain now - Exam Vitals: Temp Pulse Resp BP Pulse Ox 98.2 F 63 14 179/71 99 01/24/19 10:54 01/24/19 10:54 01/24/19 10:54 01/24/19 10:54 01/24/19 10:54 Exam: Gen: Alert, awake, Oriented to time,place and person Chest: Diminished breath sounds B/L, No wheezing, No crackles, No rales Heart: S1S2+ RRR No murmurs Abd: Soft, NT, BS +, No organomegaly Ext: No edema, pulses are palpable, No calf tenderness Neuro : No acute focal neuro deficits noticed Skin: No rash. - Assessment and Plan (1) Chest pain Current Visit: Yes Status: Acute Assessment and Plan: So far negative trop x 3 No acute ischemic changes on EKG Since she is high risk for ACS, ordered nuclear stress test she does need 2 days stress test cont ASA, Plavix, Lipitor, and ACEI Unable to add BB due to bradycardia (2) CAD (coronary artery disease) Current Visit: Yes Status: Chronic Assessment and Plan: Hx of chronic CAD. Previous LA w/stents x4. Cont on tele Resumed all home meds ASA, Plavix, Statin and Lisinopril (3) COPD (chronic obstructive pulmonary disease) Current Visit: Yes Status: Chronic Assessment and Plan: Hx of COPD. Not in exacerbation Will start her onn Duoneb PRN (4) Diabetes mellitus Current Visit: Yes Status: Chronic Assessment and Plan: ADA diet on ISS Well controlled BS HbA1C 6.5 (5) CKD (chronic kidney disease) Current Visit: Yes Status: Chronic Assessment and Plan: Stable Cr avoid nephro toxic meds (6) HTN (hypertension) Current Visit: Yes Status: Chronic Assessment and Plan: Fluctuating BP cont close monitoring cont home meds on IV hydralazine PRN (7) HLD (hyperlipidemia) Current Visit: Yes Status: Chronic Assessment and Plan: Continue pts Lipitor (8) Diastolic CHF Current Visit: Yes Status: Chronic Assessment and Plan: Stable not in exacerbation resumed home meds (9) Chronic respiratory failure with hypoxia Current Visit: Yes Status: Acute Assessment and Plan: on 2 lit O2 (10) Thyroid disease Current Visit: Yes Status: Chronic Assessment and Plan: Cont Synthroid. (11) DVT prophylaxis Current Visit: Yes Status: Acute Assessment and Plan: SCD's - Time Spent with Patient Total time spent is greater than 50% in coordination of care (as documented) at patient's floor/unit and/or counseling patient: Internal Medicine: Result - Labs CBC & Chem 7: 01/24/19 00:29 01/24/19 00:29 Labs: Short CBC 01/23/19 01/24/19 Range/Units 18:21 00:29 WBC 6.5 4.7 (4.3-11.1) K/mcL Hgb 12.5 11.7 (11.5-15.4) g/dL Hct 38.7 35.9 (35.3-44.9) % Plt Count 230 207 (140-400) K/mcL Neutrophils # 3.7 (1.6-8.9) K/mcL BMP 01/23/19 01/24/19 18:21 00:29 Sodium 140 141 Potassium 4.1 3.6 Chloride 106 108 H Carbon Dioxide 28 27 BUN 25 H 24 H Creatinine 1.19 1.16 Glucose 108 H 155 H Calcium 10.0 9.7 Cardiac Enzymes 01/23/19 01/24/19 Range/Units 18:21 06:13 Troponin I < 0.03 < 0.03 (< 0.04) ng/mL - Impressions Impressions Chest X-Ray 01/23/19 17:55 IMPRESSION: Diffuse ground-glass attenuation, right greater than left. Findings are increased from the prior and may represent pulmonary edema. Developing chronic interstitial prominence is not excluded. There is no consolidation to suggest pneumonia. D/ / Stuart Taylor / Stuart Taylor Interpreting Provider: Stuart Taylor Echocardiogram 01/24/19 23:33 Impressions: LVEF 60-65%. Normal LV chamber size and function. Asymmetric hypertrophy of the basal septum. Very mild LVOT obstruction. Mean gradient 7 mmHg. Mild left ventricular diastolic dysfunction. Normal right ventricular structure and function. Severely dilated left atrium. Moderate mitral annular calcification. Mild mitral regurgitation. Mild mitral stenosis. Mean gradient 5 mmHg (HR 66 bpm). Mild tricuspid regurgitation. Mild pulmonary hypertension. Left Ventricular Wall Motion: Rest Echo Findings All wall segments showed normal motion. Findings: Study Quality * Technically adequate exam. ECG Findings * Normal sinus rhythm. Left Ventricle * LVEF 60-65%. * Normal LV chamber size and function. * Asymmetric hypertrophy of the basal septum.Very mild LVOT obstruction. Mean gradient 7 mmHg. * Mild left ventricular diastolic dysfunction. Right Ventricle * Normal right ventricular structure and function. Left Atrium * Severely dilated left atrium. Right Atrium * Mildly dilated right atrium. Interatrial Septum * No evidence of a PFO by color Doppler. Aortic Valve * Trileaflet aortic valve. * No aortic regurgitation. * No aortic stenosis. Mitral Valve * Moderate mitral annular calcification. * Mild mitral regurgitation. * Mild mitral stenosis. Mean gradient 5 mmHg (HR 66 bpm). Tricuspid Valve * Normal tricuspid valve structure. * Mild tricuspid regurgitation. * Mild pulmonary hypertension. Pulmonic Valve * Normal pulmonic valve structure and function. * Trace pulmonic regurgitation. Aorta * Normally sized aortic root. Pericardium * The pericardium appears normal. IVC * Normal IVC dimensions and inspiratory collapse. Pulmonary Artery * Normal visualized portions of the main pulmonary artery. Consult Discharge Plan - Plan Referrals: NONE,PCP [Primary Care Provider] - (1) Chest pain Qualifiers: Chest pain type: other chest pain Qualified Code(s): R07.89 - Other chest pain; R07.8 - Other chest pain (2) CAD (coronary artery disease) Qualifiers: Coronary Disease-Associated Artery/Lesion type: [place] artery [place] vs. 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: without half-way use Diabetes mellitus complication status: with kidney complications Diabetes mellitus complication detail: with chronic kidney disease Chronic kidney disease stage: stage 3 (moderate) Qualified Code(s): E11.22 - Type 2 diabetes mellitus with diabetic chronic kidney disease; N18.3 - Chronic kidney disease, stage 3 (moderate) (5) CKD (chronic kidney disease) Qualifiers: Chronic kidney disease stage: stage 3 (moderate) Qualified Code(s): N18.3 - Chronic kidney disease, stage 3 (moderate) (6) HTN (hypertension) Qualifiers: Hypertension type: essential hypertension Qualified Code(s): I10 - Essential (primary) hypertension (7) HLD (hyperlipidemia) Qualifiers: Hyperlipidemia type: pure hypercholesterolemia Qualified Code(s): E78.00 - Pure hypercholesterolemia, unspecified; E78.0 - Pure hypercholesterolemia (8) Diastolic CHF Qualifiers: Heart failure chronicity: chronic Qualified Code(s): I50.32 - Chronic diastolic (congestive) heart failure
[2019-01-24] MEDS ORDERED: Insulin LISPRO 300 UNITS/3 ML VIAL SQ SCH (21:00)
--- NOTE | 2019-01-24 21:33 | Electrocardiograph Report ---
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
[2019-01-25 05:16] LABS: Hemoglobin 12.5 g/dL (11.5-15.4); Mean Corpuscular HGB Conc 32.1 g/dL (31.6-35.5); Mean Corpuscular Hemoglobin 32.4 pg (28.0-33.3); Mean Platelet Volume 9.6 fL (9.4-12.4); Platelet Count 214 K/mcL (140-400); Red Blood Count 3.86 M/mcL (3.82-4.97); Red Cell Distribution Width 13.6 % (11.5-14.5); White Blood Count 6.3 K/mcL (4.3-11.1)
[2019-01-25] MEDS: Insulin LISPRO 300 UNITS/3 ML VIAL SQ SCH ×4 (08:34→20:46)
[2019-01-25] MEDS: Gabapentin 300 MG CAPSULE PO SCH ×3 (08:45→20:46)
--- NOTE | 2019-01-25 10:57 | Cardiology Consult Note ---
<Gopal Domignuez - Last Filed: 01/25/19 11:04> Date of Encounter: 01/25/19 Time of Encounter: 10:54 Assessment and Plan (1) Chest pain Current Visit: Yes Status: Acute Chest pressure began and has been intermittent with exertion. Pain radiates to left arm , center of her back, left jaw. Associated symptoms nausea and diaphoresis. Improves with nitro. Troponins negative. 2 day nuclear stress test negative for ischemia or infarct. Pt continues to have exertional chest pain as recent as this AM. Ventricular bigeminy on telemetry. TTE 01/24/19: LVEF 60-65%. Normal LV chamber size and function. Asymmetric hypertrophy of the basal septum. Very mild LVOT obstruction. Mean gradient 7 mmHg. Mild LVDD. Normal RV structure and function. Severely dilated LA. Moderate MAC. Mild MR. Mild MS. MG 5 mmHg (HR 66 bpm). Mild TR. Mild phtn. Discussed with Dr. Burton. Will increase BB--Lopressor to 25mg BID. Imdur increased this AM to 60mg daily. Creatinine 1.45 today--1.16 yesterday. Will re-evaluate in AM. If chest pain continues despite medical management, will then consider LHC if renal function is stable. NPO after midnight. Qualifiers: Chest pain type: other chest pain Qualified Code(s): R07.89 - Other chest pain; R07.8 - Other chest pain (2) CAD (coronary artery disease) Current Visit: Yes Status: Chronic Hx CAD and PCI. Continue ASA, Statin, Plavix, BB, Imdur. Qualifiers: Coronary Disease-Associated Artery/Lesion type: circle artery [place] vs. t ransplanted heart: circle heart Associated angina: without angina Qualified Code(s): I25.10 - Atherosclerotic heart disease of circle coronary artery without angina pectoris Discussion w patient/family: The assessment and plan as outlined above was discussed with the patient and/or family members who expressed understanding and agreement. All questions were answered. Thank you for involving us in the care of your patient. Please call with any questions. I will discuss all the above with Dr. Burton and make changes as necessary. History of Present Illness Consult date: 01/25/19 Requesting physician: Marty Najera Consult reason: chest pain Chief complaint: chest pain History of present illness: Ms. Beck is a 83 year old female w/PMH of previous OR/CAD s/p PCI, diastolic CHF, diabetes, HTN, HLD, arthritis, COPD, fibromyalgia, CKD, and thyroid disease presents from the ED with chief complaint of chest pressure that began on and has been intermittent with exertion. Pain radiates to left arm , center of her back, left jaw. Associated symptoms nausea and diaphoresis. Improves with nitro. Troponins negative. 2 day nuclear stress test negative for ischemia or infarct. Pt continues to have exertional chest pain as recent as this AM. Ventricular bigeminy on telemetry. Cardiology consulted for further recs. Prior CV testing: TTE 01/24/19: LVEF 60-65%. Normal LV chamber size and function. Asymmetric hypertrophy of the basal septum. Very mild LVOT obstruction. Mean gradient 7 mmHg. Mild LVDD. Normal RV structure and function. Severely dilated LA. Moderate mitral annular calcification. Mild MR. Mild MS. Mean gradient 5 mmHg (HR 66 bpm ). Mild TR. Mild phtn. Nuclear stress test 01/24/19: Perfusion imaging negative for ischemia or infarct. Gated EF >70%. PVCs and ventricular bigeminy. Past Med Surg Social Fam HX - Past Medical History Medical history: arthritis, CHF, COPD, coronary artery disease, diabetes, fibromyalgia, hyperlipidemia, hypertension, myocardial infarction, renal disease, thyroid disease Additional medical history: MACULAR DEGENERATION, peripheral diabetic neuropathy. Psychiatric history: no psych history - Past Surgical History Surgical History: cholecystectomy Additional surgical history: [employer], 4 cardiac stents, Left subclavian artery angioplasty - Social History Smoking Status: Former smoker Packs per day: <1 PPD - Reports quitting in 1997 Smokeless Tobacco Status: No Alcohol use: none Drug use: none - Family History Sister Race: Family Member Ethnicity: Non- Living Status: Age at : 80 Cause of : Breast cancer Hx Family Cardiac Disorders: Yes (CVA x2) Hx Family Cancer: Yes (Breast) Hx Family Endocrine Disorder: Yes (DM) Hx Family Neurologic Disorders: Yes (CVA) Mother Race: Family Member Ethnicity: Non- Living Status: Age at : 58 Cause of : CHF Hx Family Cardiac Disorders: Yes (CAD, CHF) Father Race: Family Member Ethnicity: Non- Living Status: Age at : 83 Cause of : Colon cancer Hx Family Cancer: Yes (Colon) Brother Race: Family Member Ethnicity: Non- Living Status: Age at : 60 Cause of : Asthma Hx Family Cardiac Disorders: Yes (CAD) Hx Family Respiratory Disorders: Yes (Asthma) Medications and Allergies Clopidogrel [Plavix] 75 mg PO DAILY 08/17/17 [History] Gabapentin [Neurontin] 300 mg PO TID 08/17/17 [History] Isosorbide MONOnitrate (24 HR) [Imdur] 30 mg PO DAILY 08/17/17 [History] Memantine HCl [Namenda Xr] 28 mg PO DAILY 08/17/17 [History] Atorvastatin [Lipitor] 10 mg PO HS 08/18/17 [History] Linagliptin [Tradjenta] 5 mg PO DAILY 08/18/17 [History] Metoprolol [Lopressor] 12.5 mg PO BID 08/18/17 [History] Cholecalciferol (Vitamin D3) [Vitamin D] 1,000 unit PO DAILY 01/23/19 [History] [place]-3/Dha/Epa/Fish Oil [Fish Oil 1,000 mg Softgel] 1 cap PO DAILY 01/23/19 [History] Aspirin [Adult Aspirin Regimen] 81 mg PO DAILY 01/25/19 [History] Budesonide/Formoterol 80/4.5 [Symbicort 80/4.5] 2 puff IH BID 01/25/19 [History] Diclofenac Sodium [Voltaren] 1 - 2 gm TP QID PRN 01/25/19 [History] Levothyroxine Sodium [Levo-T] 112 mcg PO QAM 01/25/19 [History] Lidocaine Viscous Oral Soln 5 ml PO DAILY PRN 01/25/19 [History] Lisinopril [Zestril] 5 mg PO DAILY 01/25/19 [History] Vit C/Vit E/Lutein/Min/[place]-3 [Ocuvite Softgel] 1 cap PO DAILY 01/25/19 [History] Allergy/AdvReac Type Severity Reaction Status Date / Time morphine Allergy Difficulty Verified 01/23/19 18:03 Breathing adhesive tape AdvReac Itching Verified 01/23/19 18:03 ciprofloxacin [From Cipro] AdvReac Difficulty Verified 01/23/19 18:03 Breathing Penicillins AdvReac Difficulty Verified 01/23/19 18:03 Breathing Sulfa (Sulfonamide AdvReac Difficulty Verified 01/23/19 18:03 Antibiotics) Breathing All Systems Review: The remainder of the systems were reviewed and are negative - Cardiovascular Cardiovascular: as per HPI, chest pain with exertion, dyspnea on exertion, radiating jaw, neck or arm pain - Respiratory Respiratory: dyspnea Physical Examination Vital Signs, Last 4 Hours Temp Pulse Resp BP Pulse Ox 01/25/19 08:26 97.7 F 74 16 185/81 93 Vital Signs Temp Pulse Resp BP Pulse Ox 01/25/19 08:26 97.7 F 74 16 185/81 93 01/25/19 04:13 98.0 F 71 16 174/71 94 01/24/19 23:50 98.2 F 74 14 130/72 90 01/24/19 22:02 98.5 F 5 14 159/69 97 01/24/19 18:30 97.7 F 68 16 173/64 96 01/24/19 16:14 98.1 F 51 16 145/76 92 Intake and Output 01/24/19 01/25/19 01/25/19 23:59 07:59 15:59 Intake Total 750 / 1015.9 Output Total 600 / 900 Balance 150 / 115.9 Intake: IV Fluids 450 / 475.9 0.9 % Sodium Chloride 500 ML @ 450 / 450 0 mls/hr .ROUTE .[facility] Rx #:[id number] Oral 300 / 540 Output: Urine 600 / 900 Other: Blood Glucose* 114 109 General: Conversant, No Apparent Distress HEENT: Atraumatic, Normocephaly, Mucus Membranes Moist Neck: No JVD, Normal carotid pulses Cardiac: Reg Rate and Rhythm, Normal S1 and S2, No Murmur Lungs: No Wheeze, Rales, Rhonchi Neuro: Alert and responsive, No focal deficits noted Abdomen: Soft, Non-Tender Skin: No rashes noted on visualized skin Musculoskeletal: No Chest Wall Tenderness Extremities: No Clubbing, No Cyanosis, No Edema, Normal Pulses Results 01/25/19 03:56 01/25/19 03:56 Lab Results 01/25/19 01/25/19 03:56 03:56 WBC 6.3 Hgb 12.5 Hct 39.0 Plt Count 214 Sodium 141 Potassium 4.0 Chloride 107 Carbon Dioxide 28 BUN 29 H Creatinine 1.45 H Glucose 115 H Calcium 10.0 Short CBC 01/25/19 Range/Units 03:56 WBC 6.3 (4.3-11.1) K/mcL Hgb 12.5 (11.5-15.4) g/dL Hct 39.0 (35.3-44.9) % Plt Count 214 (140-400) K/mcL BMP 01/25/19 Range/Units 03:56 Sodium 141 (136-145) mEq/L Potassium 4.0 (3.5-5.1) mEq/L Chloride 107 (98-107) mEq/L Carbon Dioxide 28 (23-29) mEq/L BUN 29 H (8-23) mg/dL Creatinine 1.45 H (0.60-1.20) mg/dL Glucose 115 H (70-105) mg/dL Calcium 10.0 (8.6-10.3) mg/dL Active Medications Acetaminophen (Tylenol) 650 mg PO Q6H PRN PRN Reason: Mild Pain/Fever Stop: 07/25/19 23:41 Last Admin: 01/24/19 15:33 Dose: 650 mg Documented by: Aspirin (Aspirin Ec) 81 mg PO QPM FREDDIE Stop: 07/26/19 09:01 Last Admin: 01/24/19 17:22 Dose: 81 mg Documented by: Atorvastatin Calcium (Lipitor) 10 mg PO HS [facility] Stop: 07/26/19 21:01 Last Admin: 01/24/19 20:18 Dose: 10 mg Documented by: Clopidogrel Bisulfate (Plavix) 75 mg PO QPM FREDDIE Stop: 07/25/19 23:46 Last Admin: 01/24/19 17:22 Dose: 75 mg Documented by: Dextrose/Water (Dextrose 50% (Syg)) 25 ml IVP AD PRN PRN Reason: Hypoglycemia Stop: 07/25/19 23:38 Gabapentin (Neurontin) 300 mg PO TID FREDDIE Stop: 07/25/19 23:46 Last Admin: 01/25/19 08:45 Dose: 300 mg Documented by: Glucagon (Glucagen) 1 mg IM ONCE PRN PRN Reason: Hypoglycemia Stop: 07/25/19 23:38 Glucose (Gluctose) 15 gm PO ONCE PRN PRN Reason: Hypoglycemia Stop: 07/25/19 23:38 Glucose (Gluctose) 30 gm PO ONCE PRN PRN Reason: Hypoglycemia Stop: 07/25/19 23:38 Hydralazine HCl (Hydralazine) 10 mg IVP Q6H PRN PRN Reason: Hypertension Stop: 07/25/19 23:49 Last Admin: 01/24/19 20:31 Dose: 10 mg Documented by: Dextrose (Dextrose 5%) 1,000 mls @ 100 mls/hr IVC .Q10H PRN PRN Reason: HYPOGLYCEMIA Stop: 07/25/19 23:39 Insulin Human Lispro (Humalog) 0 units SQ HS [facility]; Protocol Stop: 07/25/19 23:46 Last Admin: 01/24/19 20:32 Dose: Not Given Documented by: Insulin Human Lispro (Humalog) 0 units SQ TIDAC [facility]; Protocol Stop: 07/27/19 07:31 Last Admin: 01/25/19 08:34 Dose: Not Given Documented by: Isosorbide Mononitrate (Imdur) 60 mg PO DAILY [facility] Stop: 07/27/19 10:31 Levothyroxine Sodium (Synthroid) 112 mcg PO 0630 [facility] Stop: 07/26/19 06:31 Last Admin: 01/25/19 04:53 Dose: Not Given Documented by: Lisinopril (Zestril) 5 mg PO DAILY [facility]; Protocol Stop: 07/26/19 09:01 Last Admin: 01/25/19 08:45 Dose: 5 mg Documented by: Memantine (Namenda) 10 mg PO BID [facility] Stop: 07/26/19 09:01 Last Admin: 01/25/19 08:45 Dose: 10 mg Documented by: Metoprolol Tartrate (Lopressor) 25 mg PO BID [facility] Stop: 07/27/19 11:16 Naloxone HCl (Narcan) 0.4 mg IVP Q2MPRN PRN PRN Reason: SEE COMMENTS Stop: 07/25/19 23:41 Nitroglycerin (Nitroglycerin) 0.4 mg SL Q5MPRN PRN PRN Reason: Chest Pain Stop: 07/25/19 17:56 Last Admin: 01/23/19 18:33 Dose: 0.4 mg Documented by: Ondansetron HCl (Zofran) 4 mg IVP Q8H PRN PRN Reason: Nausea And Vomiting Stop: 07/25/19 23:41 Last Admin: 01/25/19 08:49 Dose: 4 mg Documented by: Tramadol HCl (Ultram) 50 mg PO Q6H PRN PRN Reason: Moderate Pain Stop: 07/25/19 23:41 - Imaging and Cardiology Stress Test: report reviewed Echo: report reviewed - EKG Interpretation EKG results cardiology: personally reviewed (bigeminy), other (12 hr tele AVG HR 76, SR with ventricular bigeminy) Consult Discharge Plan - Plan Referrals: NONE,PCP [Primary Care Provider] - <Tammy Burton - Last Filed: 01/25/19 15:44> Date of Encounter: 01/25/19 - Attending Attestation Patient was seen and evaluated independently by me. Findings, assessment and plan were discussed at length with patient, questions answered. Agree with nurse practitioner's/resident's documentation. Addition as follows, 83 yoCF ho CAD PCI, ckd, HTN, DM, COPD. P/w intermittent exertional and non- exertional chest pain 5 days. Significant hypertension, ECG frequent ventricular bigeminy, neg trop. SPECT no ischemia or infarct on perfusion study. TTE EF 60-65%, LVOT gradient 7, RV nl, severe LAE, mild MR, mild MS, mild TR, mild PH. RA, CTA B/L, IR frequent PVCs, no LE edema. Cr 1.45 from 1.16. A: Angina, typical feature, but negative SPECT Frequent PVCs, ventricular bigeminy HTN Ho CAD PCI SKINNY on CKD P: increase BB and imdur if chest pain fails to improve with improving PVC and BP ctr, consider LHC after SKINNY resolves NPO after midnight Tammy Burton MD, PhD Assessment and Plan Discussion w patient/family: The assessment and plan as outlined above was discussed with the patient and/or family members who expressed understanding and agreement. All questions were ans wered. Thank you for involving us in the care of your patient. Please call with any questions. History of Present Illness History of present illness: Ms. Beck is a 83 year old female All Systems Review: The remainder of the systems were reviewed and are negative Physical Examination Vital Signs, Last 4 Hours Temp Pulse Resp BP Pulse Ox 01/25/19 11:25 98.3 F 80 16 154/63 92 Results 01/25/19 03:56 01/25/19 03:56 Lab Results 01/25/19 01/25/19 03:56 03:56 WBC 6.3 Hgb 12.5 Hct 39.0 Plt Count 214 Sodium 141 Potassium 4.0 Chloride 107 Carbon Dioxide 28 BUN 29 H Creatinine 1.45 H Glucose 115 H Calcium 10.0
[2019-01-25] MEDS: Isosorbide MONOnitrate (24 HR) 60 MG TAB.ER.24H PO SCH (11:15)
--- NOTE | 2019-01-25 11:34 | Internal Med Progress Note ---
Hospitalist Progress Note - Encounter Date of Encounter: 01/25/19 Time of Encounter: 10:00 - Subjective Interval History: Ms. Beck is a 83 year old female w/PMH of previous [facility] w/stents, CAD, diastolic CHF, diabetes, HTN, HLD, arthritis, COPD, fibromyalgia, CKD, and thyroid disease presents from the ED with chief complaint of chest pressure that began on and continued till today with exertion. Patient reports pain started evening after eating spaghetti meatballs which she usually does not eat. Patient describes pressure as centralized in chest and accompanied by radiation to left arm all the way down to her thumb, center of her back, left jaw. Patient is a former smoker smoking less than 1 pack per day and quitting in 1997. She was admitted in the hospital placed on nurse monitoring. Her serial troponin came back as negative. She did go for nuclear stress test. Pt stated she still has intermittent CP at resting as well as with exertion associated with SOB. Her CP non radiating. - Exam Vitals: Temp Pulse Resp BP Pulse Ox 98.3 F 80 16 154/63 92 01/25/19 11:25 01/25/19 11:25 01/25/19 11:25 01/25/19 11:25 01/25/19 11:25 Exam: Gen: Alert, awake, Oriented to time,place and person Chest: Diminished breath sounds B/L, No wheezing, No crackles, No rales Heart: S1S2+ RRR No murmurs Abd: Soft, NT, BS +, No organomegaly Ext: No edema, pulses are palpable, No calf tenderness Neuro : No acute focal neuro deficits noticed Skin: No rash. - Assessment and Plan (1) Chest pain Current Visit: Yes Status: Acute Assessment and Plan: Her CP seems to be more like angina equivalent Nitro PRN.. If CP persists, will consider to start her on Nitro gtt So far negative trop x 3 No acute ischemic changes on EKG Since she is high risk for ACS, ordered nuclear stress test she did go for 2 days stress test - which came back as negative for ischemia however she is still c/o intermittent CP at rest and with exertion. cont ASA, Plavix, Lipitor, and ACEI resumed Metoprolol at low dose 12.5mg BID and increased her Imdur to 60mg Pt may need [facility] for further eval regarding her CP Card consulted Since she does have mild SKINNY with CKD-3, started on gentle IV hydration and acetylcysteine Patient does need to stay in the hospital more than 2 midnights due to her complex medical problems. So we will change her to full admission today. I did review my colleague Abhijit Martinez's H & P including HPI, PMH, PSH, FH, SH, and ROS no changes noticed (2) CAD (coronary artery disease) Current Visit: Yes Status: Chronic Assessment and Plan: Hx of chronic CAD. Previous [facility] w/stents x4. Cont on tele Resumed all home meds ASA, Plavix, Statin and Lisinopril BB and Imdur (3) COPD (chronic obstructive pulmonary disease) Current Visit: Yes Status: Chronic Assessment and Plan: Hx of COPD. Not in exacerbation Will start her on Duoneb PRN (4) Diabetes mellitus Current Visit: Yes Status: Chronic Assessment and Plan: ADA diet on ISS Well controlled BS HbA1C 6.5 (5) CKD (chronic kidney disease) Current Visit: Yes Status: Chronic Assessment and Plan: Cr went up little bit today @ 1.45 started on gentle hydration and acetyl cystience as renal protective if she goes for [facility] in AM avoid nephro toxic meds (6) HTN (hypertension) Current Visit: Yes Status: Chronic Assessment and Plan: Fluctuating BP Fairly controlled cont close monitoring cont home meds, Lisinopril, Metoprolol and Inc Imdur to 60mg on IV hydralazine PRN (7) HLD (hyperlipidemia) Current Visit: Yes Status: Chronic Assessment and Plan: Continue pts Lipitor (8) Diastolic CHF Current Visit: Yes Status: Chronic Assessment and Plan: Stable not in exacerbation cont home meds (9) Chronic respiratory failure with hypoxia Current Visit: Yes Status: Acute Assessment and Plan: on 2 lit O2 (10) Thyroid disease Current Visit: Yes Status: Chronic Assessment and Plan: Cont Synthroid. (11) DVT prophylaxis Current Visit: Yes Status: Acute Assessment and Plan: SCD's SQ Heparin - Time Spent with Patient Total time spent is greater than 50% in coordination of care (as documented) at patient's floor/unit and/or counseling patient: Internal Medicine: Result - Labs CBC & Chem 7: 01/25/19 03:56 01/25/19 03:56 Labs: Short CBC 01/25/19 Range/Units 03:56 WBC 6.3 (4.3-11.1) K/mcL Hgb 12.5 (11.5-15.4) g/dL Hct 39.0 (35.3-44.9) % Plt Count 214 (140-400) K/mcL BMP 01/25/19 03:56 Sodium 141 Potassium 4.0 Chloride 107 Carbon Dioxide 28 BUN 29 H Creatinine 1.45 H Glucose 115 H Calcium 10.0 Consult Discharge Plan - Plan Referrals: NONE,PCP [Primary Care Provider] - (1) Chest pain Qualifiers: Chest pain type: other chest pain Qualified Code(s): R07.89 - Other chest pain; R07.8 - Other chest pain (2) CAD (coronary artery disease) Qualifiers: Coronary Disease-Associated Artery/Lesion type: [place] artery [place] vs. 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 insulin use: without jail use Diabetes mellitus complication status: with kidney complications Diabetes mellitus complication detail: with chronic kidney disease Chronic kidney disease stage: stage 3 (moderate) Qualified Code(s): E11.22 - Type 2 diabetes mellitus with diabetic chronic kidney disease; N18.3 - Chronic kidney disease, stage 3 (moderate) (5) CKD (chronic kidney disease) Qualifiers: Chronic kidney disease stage: stage 3 (moderate) Qualified Code(s): N18.3 - Chronic kidney disease, stage 3 (moderate) (6) HTN (hypertension) Qualifiers: Hypertension type: essential hypertension Qualified Code(s): I10 - Essential (primary) hypertension (7) HLD (hyperlipidemia) Qualifiers: Hyperlipidemia type: pure hypercholesterolemia Qualified Code(s): E78.00 - P ure hypercholesterolemia, unspecified; E78.0 - Pure hypercholesterolemia (8) Diastolic CHF Qualifiers: Heart failure chronicity: chronic Qualified Code(s): I50.32 - Chronic diastolic (congestive) heart failure
[2019-01-25] MEDS: Acetaminophen 325 MG TABLET PO PRN (12:01)
[2019-01-25] MEDS: 0.9 % Sodium Chloride 1,000 ML IVC SCH (12:01)
[2019-01-25] MEDS: Aspirin Enteric Coated 81 MG Tablet PO SCH (17:19)
[2019-01-25] MEDS: *HR* Heparin 5,000 UNIT/ML VIAL SQ SCH (17:19)
[2019-01-25] MEDS: *HR* Acetylcysteine 20% 600 MG/3 ML ORAL SYRINGE PO SCH (21:43)
[2019-01-26] MEDS: *HR* Heparin 5,000 UNIT/ML VIAL SQ SCH ×2 (05:08→17:42)
[2019-01-26] MEDS: 0.9 % Sodium Chloride 1,000 ML IVC SCH ×2 (05:09→12:51)
[2019-01-26 05:49] LABS: Hematocrit 35.4 % (35.3-44.9); Hemoglobin 11.2 g/dL (11.5-15.4); Mean Corpuscular HGB Conc 31.6 g/dL (31.6-35.5); Mean Corpuscular Hemoglobin 32.7 pg (28.0-33.3); Mean Corpuscular Volume 103.5 fL (83.0-100.0); Mean Platelet Volume 9.5 fL (9.4-12.4); Platelet Count 188 K/mcL (140-400); Red Blood Count 3.42 M/mcL (3.82-4.97); Red Cell Distribution Width 13.5 % (11.5-14.5); White Blood Count 6.2 K/mcL (4.3-11.1)
[2019-01-26 06:10] LABS: Calcium 9.3 mg/dL (8.6-10.3); Potassium 4.3 mEq/L (3.5-5.1)
[2019-01-26] MEDS: Insulin LISPRO 300 UNITS/3 ML VIAL SQ SCH ×4 (07:41→20:40)
--- NOTE | 2019-01-26 09:06 | Cardiology Progress Note ---
Date of Encounter: 01/26/19 Time of Encounter: 09:04 Assessment and Plan (1) Chest pain Current Visit: Yes Status: Acute Chest pressure began and has been intermittent with exertion. Pain radiates to left arm , center of her back, left jaw. Associated symptoms nausea and diaphoresis. Improves with nitro. Troponins negative. 2 day nuclear stress test 01/25/19 negative for ischemia or infarct. Pt continued to have exertional chest pain yesterday AM. Ventricular bigeminy on telemetry. TTE 01/24/19: LVEF 60-65%. Normal LV chamber size and function. Asymmetric hypertrophy of the basal septum. Very mild LVOT obstruction. Mean gradient 7 mmHg. Mild LVDD. Normal RV structure and function. Severely dilated LA. Moderate MAC. Mild MR. Mild MS. MG 5 mmHg (HR 66 bpm). Mild TR. Mild phtn. Increased BB yesterday--Lopressor to 25mg BID. Imdur increased to 60mg daily. Pt chest pain free overnight. Creatinine 1.56 today--1.45 yesterday. Given pt is now chest pain free and with negative stress test, recommend continued medical management. Unable to increase BB or Imdur further d/t marginal BP this AM. Cardiology signing off. Reconsult PRN or if recurrent chest pain. Will coordinate outpt follow-up in 1-2 weeks. Qualifiers: Chest pain type: other chest pain Qualified Code(s): R07.89 - Other chest pain; R07.8 - Other chest pain (2) CAD (coronary artery disease) Current Visit: Yes Status: Chronic Hx CAD and PCI. Continue ASA, Statin, Plavix, BB, Imdur. Qualifiers: Coronary Disease-Associated Artery/Lesion type: [place] artery [place] vs. transplanted heart: [place] heart Associated angina: without angina Qualified Code(s): I25.10 - Atherosclerotic heart disease of [place] coronary artery without angina pectoris Discussion w patient/family: The assessment and plan as outlined above was discussed with the patient and/or family members who expressed understanding and agreement. All questions were answered. Thank you for involving us in the care of your patient. Please call with any questions. I will discuss all the above with Dr. Burton and make changes as necessary. Subjective Principal diagnosis: Chest pain Interval history: No acute complaints this AM. Denies chest pain overnight. Objective Vital Signs, Last 4 Hours Temp Pulse Resp BP Pulse Ox 01/26/19 07:45 98.0 F 65 16 105/50 92 Vital Signs Temp Pulse Resp BP Pulse Ox 01/26/19 07:45 98.0 F 65 16 105/50 92 01/26/19 03:30 97.6 F 65 18 145/63 95 01/25/19 23:06 98.5 F 64 18 118/52 91 01/25/19 19:10 98.3 F 73 18 123/65 91 01/25/19 16:28 97.4 F L 57 18 125/62 90 01/25/19 11:25 98.3 F 80 16 154/63 92 Intake and Output 01/25/19 01/26/19 01/26/19 23:59 07:59 15:59 Intake Total 1000 / 1000 Balance 1000 / 1000 Intake: IV Fluids 1000 / 1000 0.9 % Sodium Chloride 1,000 ML 1000 / 1000 @ 75 mls/hr IVC .[id number] [facility] Rx #:[id number] Other: Weight 93.8 kg Blood Glucose* 122 94 Patient Weight 01/26/19 23:59 Weight 93.8 kg General: Conversant, No Apparent Distress HEENT: Atraumatic, Normocephaly, Mucus Membranes Moist Neck: No JVD, Normal carotid pulses Cardiac: Reg Rate and Rhythm, Normal S1 and S2, No Murmur Lungs: Normal Breath Sounds, No Wheeze, Rales, Rhonchi Neuro: Alert and responsive, No focal deficits noted Abdomen: Soft, Non-Tender Skin: No rashes noted on visualized skin Musculoskeletal: No Chest Wall Tenderness Extremities: No Clubbing, No Cyanosis, No Edema, Normal Pulses Results 01/26/19 04:23 01/26/19 04:23 Lab Results 01/26/19 01/26/19 04:23 04:23 WBC 6.2 Hgb 11.2 L Hct 35.4 Plt Count 188 Sodium 141 Potassium 4.3 Chloride 106 Carbon Dioxide 28 BUN 44 H Creatinine 1.56 H Glucose 99 Calcium 9.3 Short CBC 01/26/19 Range/Units 04:23 WBC 6.2 (4.3-11.1) K/mcL Hgb 11.2 L (11.5-15.4) g/dL Hct 35.4 (35.3-44.9) % Plt Count 188 (140-400) K/mcL BMP 01/26/19 Range/Units 04:23 Sodium 141 (136-145) mEq/L Potassium 4.3 (3.5-5.1) mEq/L Chloride 106 (98-107) mEq/L Carbon Dioxide 28 (23-29) mEq/L BUN 44 H (8-23) mg/dL Creatinine 1.56 H (0.60-1.20) mg/dL Glucose 99 (70-105) mg/dL Calcium 9.3 (8.6-10.3) mg/dL Active Medications Acetaminophen (Tylenol) 650 mg PO Q6H PRN PRN Reason: Mild Pain/Fever Stop: 07/25/19 23:41 Last Admin: 01/25/19 12:01 Dose: 650 mg Documented by: Acetylcysteine (Acetylcysteine 20%) 600 mg PO BID [facility] Stop: 01/27/19 09:01 Last Admin: 01/25/19 21:43 Dose: 600 mg Documented by: Aspirin (Aspirin Ec) 81 mg PO QPM [facility]EDDIE Stop: 07/26/19 09:01 Last Admin: 01/25/19 17:19 Dose: 81 mg Documented by: Atorvastatin Calcium (Lipitor) 10 mg PO HS [facility] Stop: 07/26/19 21:01 Last Admin: 01/25/19 20:46 Dose: 10 mg Documented by: Clopidogrel Bisulfate (Plavix) 75 mg PO QPM [facility] Stop: 07/25/19 23:46 Last Admin: 01/25/19 17:19 Dose: 75 mg Documented by: Dextrose/Water (Dextrose 50% (Syg)) 25 ml IVP AD PRN PRN Reason: Hypoglycemia Stop: 07/25/19 23:38 Gabapentin (Neurontin) 300 mg PO TID [facility] Stop: 07/25/19 23:46 Last Admin: 01/25/19 20:46 Dose: 300 mg Documented by: Glucagon (Glucagen) 1 mg IM ONCE PRN PRN Reason: Hypoglycemia Stop: 07/25/19 23:38 Glucose (Gluctose) 15 gm PO ONCE PRN PRN Reason: Hypoglycemia Stop: 07/25/19 23:38 Glucose (Gluctose) 30 gm PO ONCE PRN PRN Reason: Hypoglycemia Stop: 07/25/19 23:38 Heparin Sodium (Porcine) (Heparin) 5,000 unit SQ Q12HR [facility] Stop: 07/27/19 18:01 Last Admin: 01/26/19 05:08 Dose: 5,000 unit Documented by: Hydralazine HCl (Hydralazine) 10 mg IVP Q6H PRN PRN Reason: Hypertension Stop: 07/25/19 23:49 Last Admin: 01/24/19 20:31 Dose: 10 mg Documented by: Dextrose (Dextrose 5%) 1,000 mls @ 100 mls/hr IVC .Q10H PRN PRN Reason: HYPOGLYCEMIA Stop: 07/25/19 23:39 Sodium Chloride (0.9 % Sodium Chloride) 1,000 mls @ 75 mls/hr IVC .[id number] [facility] Stop: 07/27/19 11:31 Last Admin: 01/26/19 05:09 Dose: 75 mls/hr Documented by: Insulin Human Lispro (Humalog) 0 units SQ HS [facility]; Protocol Stop: 07/25/19 23:46 Last Admin: 01/25/19 20:46 Dose: Not Given Documented by: Insulin Human Lispro (Humalog) 0 units SQ TIDAC [facility]; Protocol Stop: 07/27/19 07:31 Last Admin: 01/26/19 07:41 Dose: Not Given Documented by: Isosorbide Mononitrate (Imdur) 60 mg PO DAILY [facility] Stop: 07/27/19 10:31 Last Admin: 01/25/19 11:15 Dose: 60 mg Documented by: Levothyroxine Sodium (Synthroid) 112 mcg PO 0630 [facility] Stop: 07/26/19 06:31 Last Admin: 01/26/19 05:08 Dose: 112 mcg Documented by: Lisinopril (Zestril) 5 mg PO DAILY [facility]; Protocol Stop: 07/26/19 09:01 Last Admin: 01/25/19 08:45 Dose: 5 mg Documented by: Memantine (Namenda) 10 mg PO BID [facility] Stop: 07/26/19 09:01 Last Admin: 01/25/19 20:46 Dose: 10 mg Documented by: Metoprolol Tartrate (Lopressor) 25 mg PO BID [facility] Stop: 07/27/19 11:16 Last Admin: 01/25/19 20:46 Dose: 25 mg Documented by: Naloxone HCl (Narcan) 0.4 mg IVP Q2MPRN PRN PRN Reason: SEE COMMENTS Stop: 07/25/19 23:41 Nitroglycerin (Nitroglycerin) 0.4 mg SL Q5MPRN PRN PRN Reason: Chest Pain Stop: 07/25/19 17:56 Last Admin: 01/23/19 18:33 Dose: 0.4 mg Documented by: Ondansetron HCl (Zofran) 4 mg IVP Q8H PRN PRN Reason: Nausea And Vomiting Stop: 07/25/19 23:41 Last Admin: 01/25/19 08:49 Dose: 4 mg Documented by: Tramadol HCl (Ultram) 50 mg PO Q6H PRN PRN Reason: Moderate Pain Stop: 07/25/19 23:41 - Imaging and Cardiology Stress Test: report reviewed Echo: report reviewed - EKG Interpretation EKG results cardiology: other (12 hr tele AVG HR 66, PVCs, ventricular bigeminy) Consult Discharge Plan - Plan Referrals: NONE,PCP [Primary Care Provider] -
[2019-01-26] MEDS: *HR* Acetylcysteine 20% 600 MG/3 ML ORAL SYRINGE PO SCH ×2 (09:24→20:48)
[2019-01-26] MEDS: Isosorbide MONOnitrate (24 HR) 60 MG TAB.ER.24H PO SCH (09:25)
[2019-01-26] MEDS: Gabapentin 300 MG CAPSULE PO SCH ×3 (09:25→20:48)
--- NOTE | 2019-01-26 14:48 | Internal Med Progress Note ---
Hospitalist Progress Note - Encounter Date of Encounter: 01/26/19 Time of Encounter: 11:45 - Subjective Interval History: Ms. Beck is a 83 year old female w/PMH of previous [place] w/stents, CAD, diastolic CHF, diabetes, HTN, HLD, arthritis, COPD, fibromyalgia, CKD, and thyroid disease presents from the ED with chief complaint of chest pressure that began on and continued till today with exertion. Patient reports pain started evening after eating spaghetti meatballs which she usually does not eat. Patient describes pressure as centralized in chest and accompanied by radiation to left arm all the way down to her thumb, center of her back, left jaw. Patient is a former smoker smoking less than 1 pack per day and quitting in 1997. She was admitted in the hospital placed on ekg monitor tech. Her serial troponin came back as negative. She did go for nuclear stress test which came back as negative for ischemia / infarction. However she still c/o chest pain. So inc her Imdur to 60 mg y/d. Today pt denied any more CP. Pt stated she is feeling little better today. - Exam Vitals: Temp Pulse Resp BP Pulse Ox 97.9 F 67 12 127/69 98 01/26/19 11:20 01/26/19 11:20 01/26/19 11:20 01/26/19 11:20 01/26/19 11:20 Exam: Gen: Alert, awake, Oriented to time,place and person Chest: Diminished breath sounds B/L, No wheezing, No crackles, No rales Heart: S1S2+ RRR No murmurs Abd: Soft, NT, BS +, No organomegaly Ext: No edema, pulses are palpable, No calf tenderness Neuro : No acute focal neuro deficits noticed Skin: No rash. - Assessment and Plan (1) Chest pain Current Visit: Yes Status: Acute Assessment and Plan: Her CP seems to be more like angina equivalent Nitro PRN. So far negative trop x 3 No acute ischemic changes on EKG Since she is high risk for ACS, ordered nuclear stress test she did go for 2 days stress test - which came back as negative for ischemia however since she still c/o intermittent CP at rest and with exertion, inc her Imdur to 60mg Her CP improved today cont ASA, Plavix, Lipitor, Metoprolol, Imdur and ACEI Will monitor her closely for another 24 hrs If she is CP free for next 24 hrs, may not need LHC, cont medical management Card consulted - appreciate recommendations (2) CAD (coronary artery disease) Current Visit: Yes Status: Chronic Assessment and Plan: Hx of chronic CAD. Previous [place] w/stents x4. Cont on tele Resumed all home meds ASA, Plavix, Statin and Lisinopril BB and Imdur (3) COPD (chronic obstructive pulmonary disease) Current Visit: Yes Status: Chronic Assessment and Plan: Hx of COPD. Not in exacerbation on Duoneb PRN (4) Diabetes mellitus Current Visit: Yes Status: Chronic Assessment and Plan: ADA diet on ISS Well controlled BS HbA1C 6.5 (5) CKD (chronic kidney disease) Current Visit: Yes Status: Chronic Assessment and Plan: Cr still keep trending high today @ 1.54 Cont IVF Cont acetyl cystience as renal protective if she goes for LHC in AM avoid nephro toxic meds (6) HTN (hypertension) Current Visit: Yes Status: Chronic Assessment and Plan: well controlled with current regimen (7) HLD (hyperlipidemia) Current Visit: Yes Status: Chronic Assessment and Plan: Continue pts Lipitor (8) Diastolic CHF Current Visit: Yes Status: Chronic Assessment and Plan: Stable not in exacerbation cont home meds (9) Chronic respiratory failure with hypoxia Current Visit: Yes Status: Acute Assessment and Plan: on 2 lit O2 (10) Thyroid disease Current Visit: Yes Status: Chronic (11) DVT prophylaxis Current Visit: Yes Status: Acute - Time Spent with Patient Total time spent is greater than 50% in coordination of care (as documented) at patient's floor/unit and/or counseling patient: Internal Medicine: Result - Labs CBC & Chem 7: 01/26/19 04:23 01/26/19 04:23 Labs: Short CBC 01/26/19 Range/Units 04:23 WBC 6.2 (4.3-11.1) K/mcL Hgb 11.2 L (11.5-15.4) g/dL Hct 35.4 (35.3-44.9) % Plt Count 188 (140-400) K/mcL BMP 01/26/19 04:23 Sodium 141 Potassium 4.3 Chloride 106 Carbon Dioxide 28 BUN 44 H Creatinine 1.56 H Glucose 99 Calcium 9.3 Consult Discharge Plan - Plan Referrals: NONE,PCP [Primary Care Provider] - (1) Chest pain Qualifiers: Chest pain type: other chest pain Qualified Code(s): R07.89 - Other chest pain; R07.8 - Other chest pain (2) CAD (coronary artery disease) Qualifiers: Coronary Disease-Associated Artery/Lesion type: [place] artery [place] vs. 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 use: without half-way use Diabetes mellitus complication status: with kidney complications Diabetes mellitus complication detail: with chronic kidney disease Chronic kidney disease stage: stage 3 (moderate) Qualified Code(s): E11.22 - Type 2 diabetes mellitus with diabetic chronic kidney disease; N18.3 - Chronic kidney disease, stage 3 (moderate) (5) CKD (chronic kidney disease) Qualifiers: Chronic kidney disease stage: stage 3 (moderate) Qualified Code(s): N18.3 - Chronic kidney disease, stage 3 (moderate) (6) HTN (hypertension) Qualifiers: Hypertension type: essential hypertension Qualified Code(s): I10 - Essential (primary) hypertension (7) HLD (hyperlipidemia) Qualifiers: Hyperlipidemia type: pure hypercholesterolemia Qualified Code(s): E78.00 - Pure hypercholesterolemia, unspecified; E78.0 - Pure hypercholesterolemia (8) Diastolic CHF Qualifiers: Heart failure chronicity: chronic Qualified Code(s): I50.32 - Chronic diastolic (congestive) heart failure
[2019-01-26] MEDS: Aspirin Enteric Coated 81 MG Tablet PO SCH (17:41)
[2019-01-26] MEDS: Acetaminophen 325 MG TABLET PO PRN (19:28)
[2019-01-27 02:31] LABS: Calcium 9.1 mg/dL (8.6-10.3); Magnesium 1.8 mg/dL (1.6-2.6); Potassium 4.5 mEq/L (3.5-5.1)
[2019-01-27] MEDS: *HR* Heparin 5,000 UNIT/ML VIAL SQ SCH (05:48)
[2019-01-27] MEDS: 0.9 % Sodium Chloride 1,000 ML IVC SCH (05:48)
[2019-01-27] MEDS: Insulin LISPRO 300 UNITS/3 ML VIAL SQ SCH (10:25)
[2019-01-27] MEDS: Gabapentin 300 MG CAPSULE PO SCH (10:27)
[2019-01-27] MEDS: Isosorbide MONOnitrate (24 HR) 60 MG TAB.ER.24H PO SCH (10:27)
[2019-01-27] MEDS: Acetaminophen 325 MG TABLET PO PRN (10:31)
[2019-01-27 11:08] VITALS: BP 122/62
--- NOTE | 2019-01-27 12:03 | Discharge Summary ---
- NOTES TO OUTPATIENT PROVIDER Notes to Outpatient Provider: f/u with PCP in one week. f/u with Cardiology as scheduled. f/u with Nephro Dr. Springer as scheduled before. Please go for f/u labs BMP in 4 days Orders not resulted at time of discharge: Pending orders 01/23/19 23:45 NM sherri perf SPECT multi [NM] Routine Date of Encounter: 01/27/19 Time of Encounter: 11:57 - Discharge Diagnosis (1) Chest pain Priority: Primary Status: Acute Qualifiers: Chest pain type: other chest pain Qualified Code(s): R07.89 - Other chest pain; R07.8 - Other chest pain (2) CAD (coronary artery disease) Priority: Secondary Status: Chronic Qualifiers: Coronary Disease-Associated Artery/Lesion type: [place] artery [place] vs. 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 Diabetes mellitus complication status: with kidney complications Diabetes mellitus complication detail: with chronic kidney disease Chronic kidney disease stage: stage 3 (moderate) Qualified Code(s): E11.22 - Type 2 diabetes mellitus with diabetic chronic kidney disease; N18.3 - Chronic kidney disease, stage 3 (moderate) (5) CKD (chronic kidney disease) Priority: Secondary Status: Chronic Qualifiers: Chronic kidney disease stage: stage 3 (moderate) Qualified Code(s): N18.3 - Chronic kidney disease, stage 3 (moderate) (6) HTN (hypertension) Priority: Secondary Status: Chronic Qualifiers: Hypertension type: essential hypertension Qualified Code(s): I10 - Essential (primary) hypertension (7) HLD (hyperlipidemia) Priority: Secondary Status: Chronic Qualifiers: Hyperlipidemia type: pure hypercholesterolemia Qualified Code(s): E78.00 - Pure hypercholesterolemia, unspecified; E78.0 - Pure hypercholesterolemia (8) Diastolic CHF Priority: Secondary Status: Chronic Qualifiers: Heart failure chronicity: chronic Qualified Code(s): I50.32 - Chronic diastolic (congestive) heart failure (9) Chronic respiratory failure with hypoxia Priority: Secondary Status: Acute (10) Thyroid disease Priority: Secondary Status: Chronic (11) DVT prophylaxis Priority: Secondary Status: Acute Hospital course: Ms. Beck is a 83 year old female w/PMH of previous [place] w/stents, CAD, diastolic CHF, diabetes, HTN, HLD, arthritis, COPD, fibromyalgia, CKD, and thyroid disease presents from the ED with chief complaint of chest pressure that began on Thu and continued till today with exertion. Patient reports pain started evening after eating spaghetti meatballs which she usually does not eat. Patient describes pressure as centralized in chest and accompanied by radiation to left arm all the way down to her thumb, center of her back, left jaw. Patient is a former smoker smoking less than 1 pack per day and quitting in 1997. She was admitted in the hospital placed on monitoring and evaluation advisor. Her serial troponin came back as negative. She did go for nuclear stress test which came back as negative for ischemia / infarction. However she still c/o chest pain. So inc her Imdur to 60 mg and Metoprolol to 25mg. Today pt denied any more CP. Pt stated she is feeling much better today. Her Cr slightly elevated than baseline. So recommend to have f/u BMP in 3-4 days. - Time Spent with Patient Total time spent providing and/or coordinating discharge services: - Discharge Medications Prescriptions: New Nitroglycerin 0.4 mg SL Q5MPRN PRN #15 tab.subl PRN Reason: Chest Pain Continued Gabapentin [Neurontin] 300 mg PO TID Memantine HCl [Namenda Xr] 28 mg PO DAILY Clopidogrel [Plavix] 75 mg PO DAILY Atorvastatin [Lipitor] 10 mg PO HS Linagliptin [Tradjenta] 5 mg PO DAILY Cholecalciferol (Vitamin D3) [Vitamin D3] 1,000 unit PO DAILY [place]-3/Dha/Epa/Fish Oil [Fish Oil 1,000 mg Softgel] 1 cap PO DAILY Aspirin [Adult Aspirin Regimen] 81 mg PO DAILY Budesonide/Formoterol 80/4.5 [Symbicort 80/4.5] 2 puff IH BID Diclofenac Sodium [Voltaren] 1 - 2 gm TP QID PRN PRN Reason: Pain Levothyroxine Sodium [Levo-T] 112 mcg PO QAM Lidocaine Viscous Oral Soln 5 ml PO DAILY PRN PRN Reason: MOUTH SORES Lisinopril [Zestril] 5 mg PO DAILY Vit C/Vit E/Lutein/Min/[place]-3 [Ocuvite Softgel] 1 cap PO DAILY Changed Metoprolol [Lopressor] 25 mg PO BID #60 tablet Discontinued Isosorbide MONOnitrate (24 HR) [Imdur] 30 mg PO DAILY Home Medications: Clopidogrel [Plavix] 75 mg PO DAILY 08/17/17 [History] Gabapentin [Neurontin] 300 mg PO TID 08/17/17 [History] Memantine HCl [Namenda Xr] 28 mg PO DAILY 08/17/17 [History] Atorvastatin [Lipitor] 10 mg PO HS 08/18/17 [History] Linagliptin [Tradjenta] 5 mg PO DAILY 08/18/17 [History] Cholecalciferol (Vitamin D3) [Vitamin D3] 1,000 unit PO DAILY 01/23/19 [History] [place]-3/Dha/Epa/Fish Oil [Fish Oil 1,000 mg Softgel] 1 cap PO DAILY 01/23/19 [History] Aspirin [Adult Aspirin Regimen] 81 mg PO DAILY 01/25/19 [History] Budesonide/Formoterol 80/4.5 [Symbicort 80/4.5] 2 puff IH BID 01/25/19 [History] Diclofenac Sodium [Voltaren] 1 - 2 gm TP QID PRN 01/25/19 [History] Levothyroxine Sodium [Levo-T] 112 mcg PO QAM 01/25/19 [History] Lidocaine Viscous Oral Soln 5 ml PO DAILY PRN 01/25/19 [History] Lisinopril [Zestril] 5 mg PO DAILY 01/25/19 [History] Vit C/Vit E/Lutein/Min/[place]-3 [Ocuvite Softgel] 1 cap PO DAILY 01/25/19 [History] Metoprolol [Lopressor] 25 mg PO BID #60 tablet 01/27/19 [Rx] Nitroglycerin 0.4 mg SL Q5MPRN PRN #15 tab.subl 01/27/19 [Rx] Allergies/Adverse Reactions: Allergy/AdvReac Type Severity Reaction Status Date / Time morphine Allergy Difficulty Verified 01/23/19 18:03 Breathing adhesive tape AdvReac Itching Verified 01/23/19 18:03 ciprofloxacin [From Cipro] AdvReac Difficulty Verified 01/23/19 18:03 Breathing Penicillins AdvReac Difficulty Verified 01/23/19 18:03 Breathing Sulfa (Sulfonamide AdvReac Difficulty Verified 01/23/19 18:03 Antibiotics) Breathing Date of admission: 01/25/19 11:29 Primary care physician: PCP NONE Consults: 01/23/19 23:43 Consult to Founding Partner [CONS] Routine Reason for SW Consult: Please assess patient for possible home needs for post-discharge planning 01/23/19 23:56 Consult to Nutrition [CONS] Routine Comment: [place] Consulting Provider: NUTRITION Reason for Dietary Consult: PO Supplementation 01/25/19 10:22 Consult to Cardiology [CONS] Routine Comment: Consulting Provider: Cardiology Kathy Reason for Consult: angina equivalent CP Time Notified: 10:23 Call Completed: Yes - Constitutional Vitals: Temp Pulse Resp BP Pulse Ox 97.5 F L 98 16 122/62 96 01/27/19 10:56 01/27/19 10:56 01/27/19 10:56 01/27/19 10:56 01/27/19 10:56 General appearance: Present: A&O X 0, A&O X 3, pleasant, obese, answers questions appropriately Exam: Gen: Alert, awake, Oriented to time,place and person Chest: Diminished breath sounds B/L, No wheezing, No crackles, No rales Heart: S1S2+ RRR No murmurs Abd: Soft, NT, BS +, No organomegaly Ext: No edema, pulses are palpable, No calf tenderness Neuro : No acute focal neuro deficits noticed Skin: No rash. - Patient Status Disposition: Home, Self-Care Condition: Good Overall status at discharge: patient is back to baseline - Ambulatory Orders Ambulatory Orders: Basic Metabolic Panel [CHEM] Time Frame: 01/31/19, Facility: [facility], Location: LAB [facility] - Discharge Instructions Follow Up With: Fabian Cooper DO [Partnered Physician] - 02/02/19 11:30 am - Diet and Activity Activity: increase activity as tolerated Diet: low salt diet
== END 2019-01-27 14:06 | disposition home or self-care (01) | DRG 313 ==
LOC: EMEROOARM 17:52 → 3BNU 17:52 → SUATTDRO 19:44 → 3BNU 21:04
PROVIDERS: ADMIT Internal Medicine; ATTEND Family Medicine

== ENCOUNTER 2019-01-28 19:15 | Inpatient (IN) ==
[2019-01-28 21:17] LABS: Basophils % 0.5 %; Eosinophils % 0.2 %; Hematocrit 34.3 % (35.3-44.9); Hemoglobin 10.9 g/dL (11.5-15.4); Immature Granulocytes % 0.4 % (0-4); Lymphocytes # 1.1 K/mcL (0.6-4.6); Lymphocytes % 13.1 %; Mean Corpuscular HGB Conc 31.8 g/dL (31.6-35.5); Mean Corpuscular Hemoglobin 32.2 pg (28.0-33.3); Mean Corpuscular Volume 101.2 fL (83.0-100.0); Mean Platelet Volume 9.4 fL (9.4-12.4); Monocytes % 12.4 %; Neutrophils # 6.1 K/mcL (1.6-8.9); Platelet Count 183 K/mcL (140-400); Red Blood Count 3.39 M/mcL (3.82-4.97); Red Cell Distribution Width 13.2 % (11.5-14.5); Segmented Neutrophils % 73.4 %; White Blood Count 8.3 K/mcL (4.3-11.1)
[2019-01-28 21:23] LABS: Bilirubin,Urine Negative (Negative); Blood,Urine Negative (Negative); Clarity,Urine Cloudy (Clear); Color,Urine Yellow (Yellow); Glucose,Urine (UA) Normal (Normal); Ketones,Urine Negative (Negative); Leukocyte Esterase,Urine Moderate (Negative); Nitrite,Urine Negative (Negative); Protein,Urine 100 mg/dL (Neg-Trace); Urobilinogen,Urine Normal (Normal)
[2019-01-28 21:25] LABS: Hyaline Casts,Urine None Seen per lpf (None-Few); RBC,Urine 0-3 per hpf (0-3); Squamous Epithelial Cell,Urine Many per lpf (None-Few)
[2019-01-28 21:38] LABS: Renal Epithelial Cells,Urine Few per hpf (None-Few); Transitional Epi Cells,Urine Few per hpf (None-Few)
[2019-01-28 21:39] LABS: Amorphous Sediment,Urine Moderate (Few); Bacteria,Urine Few per hpf (None-Few)
[2019-01-28 21:43] LABS: Albumin 3.5 g/dL (3.5-5.7); Albumin/Globulin Ratio 1.3 (1.1-2.2); Bilirubin,Total 0.4 mg/dL (0.3-1.0); Calcium 9.4 mg/dL (8.6-10.3); Globulin 2.7 g/dL (2.4-3.5); Magnesium 1.7 mg/dL (1.6-2.6); Potassium 4.1 mEq/L (3.5-5.1); Total Protein 6.2 g/dL (6.4-8.9); Troponin I 0.05 ng/mL (< 0.04)
[2019-01-28] MEDS ORDERED: Aspirin 325 MG TABLET PO ONE (21:48)
[2019-01-28 22:08] LABS: ABG Base Excess -1 mEq/L (-2 to 3); ABG HCO3 25 mEq/L (21-27); ABG Oxygen Saturation 96 % (95-98); ABG PCO2 44 mmHg (35-45); ABG PH 7.36 pH Units (7.32-7.45); ABG PO2 88 mmHg (85-104); ABG TCO2 26 mEq/L (20-26)
--- NOTE | 2019-01-28 22:32 | Emergency Department Note ---
Disposition Clinical Impression: Generalized weakness, UTI (urinary tract infection), Elevated troponin Disposition: Admitted As Inpatient Referrals: Fabian Cooper DO [Primary Care Provider] - Forms: ED Satisfaction Letter Time of Disposition: 22:51 General Adult HPI - General Chief complaint: ED Fall Stated complaint: fall Time Seen by Provider: 01/28/19 19:58 Source: patient, EMS Limitations: no limitations - History of Present Illness HPI Narrative: Patient 83-year-old female presents to emergency department with chief complaint of generalized weakness. Patient was recently admitted to the hospital for chest pain and was discharged home in the last 24 hours. Patient after going home where she normally lives independently has been requiring almost total care by her family. Midsternal chest pain that resolved and then this evening she got progressively weaker. Patient states as the evening progressed she was unable to ambulate without assistance requiring 2 individuals to help her walk. Pain Scale: 3 - Related Data Home Medications Medication Instructions Recorded Confirmed Clopidogrel [Plavix] 75 mg PO DAILY 08/17/17 01/28/19 Gabapentin [Neurontin] 300 mg PO TID 08/17/17 01/28/19 Memantine HCl [Namenda Xr] 28 mg PO DAILY 08/17/17 01/28/19 Atorvastatin [Lipitor] 10 mg PO HS 08/18/17 01/28/19 Linagliptin [Tradjenta] 5 mg PO DAILY 08/18/17 01/28/19 Cholecalciferol (Vitamin D3) 1,000 unit PO DAILY 01/23/19 01/28/19 [Vitamin D3] [place]-3/Dha/Epa/Fish Oil [Fish Oil 1 cap PO DAILY 01/23/19 01/28/19 1,000 mg Softgel] Aspirin [Adult Aspirin Regimen] 81 mg PO DAILY 01/25/19 01/28/19 Budesonide/Formoterol 80/4.5 2 puff IH BID 01/25/19 01/28/19 [Symbicort 80/4.5] Diclofenac Sodium [Voltaren] 1 - 2 gm TP QID PRN 01/25/19 01/28/19 Levothyroxine Sodium [Levo-T] 112 mcg PO QAM 01/25/19 01/28/19 Lidocaine Viscous Oral Soln 5 ml PO DAILY PRN 01/25/19 01/28/19 Lisinopril [Zestril] 5 mg PO DAILY 01/25/19 01/28/19 Vit C/Vit E/Lutein/Min/[place]-3 1 cap PO DAILY 01/25/19 01/28/19 [Ocuvite Softgel] Isosorbide MONOnitrate (24 HR) 60 mg PO DAILY 01/28/19 01/28/19 [Imdur] Previous Rx's Medication Instructions Recorded Metoprolol [Lopressor] 25 mg PO BID #60 tablet 01/27/19 Nitroglycerin 0.4 mg SL Q5MPRN PRN #15 tab.subl 01/27/19 Allergies Allergy/AdvReac Type Severity Reaction Status Date / Time morphine Allergy Difficulty Verified 01/23/19 18:03 Breathing adhesive tape AdvReac Itching Verified 01/23/19 18:03 ciprofloxacin [From Cipro] AdvReac Difficulty Verified 01/23/19 18:03 Breathing Penicillins AdvReac Difficulty Verified 01/23/19 18:03 Breathing Sulfa (Sulfonamide AdvReac Difficulty Verified 01/23/19 18:03 Antibiotics) Breathing All systems ED: reviewed and negative except as stated. Past Medical History - Past Medical History Attestation: Yes The following information was validated with the patient. Medical history: Reports: arthritis, CHF, COPD, coronary artery disease, diabetes, fibromyalgia, hyperlipidemia, hypertension, myocardial infarction, renal disease, thyroid disease Surgical history: Reports: cholecystectomy Psychiatric history: Reports: no psych history - Social History Smoking Status: Former smoker Smokeless Tobacco Status: No Alcohol use: Reports: none Drug use: Reports: none Physical Exam General: Conversant and pleasant interactive and nontoxic. Head: Normocephalic/atraumatic Eyes:PERRLA, EOMI, no conjunctivitis Nares: Without d/c. Ears: No erythema or d/c noted. Oralpharnyx: P&MMM noted, Neck: Supple, no JVD or CHARGING CAR OPERATOR noted. Cardovascular: regular rate and rhythm without murmur, brisk capillary refill, no peripheral edema. Lungs: Clear to ascultation bilaterally, non-labored Abd: Soft nontender, Non Distended, no guarding, no rebound. : Defered Extremities: moves all extremities equally Neuro: AOx3, no obvious gross neuro deficit Psych: Normal Affect Derm: No rash noted - General Limitations: no limitations General appearance: alert, in no apparent distress Course Course Narrative: Patient is at a point where she cannot ambulate without assistance. Given the findings of the mildly elevated troponin and also a urinalysis showing evidence of urinary tract infection of the case will be discussed with the hospitalist for admission Vital Signs Temperature 100.6 F H 01/28/19 19:17 Pulse Rate 73 01/28/19 19:17 Respiratory Rate 23 01/28/19 19:17 Blood Pressure 168/53 01/28/19 19:17 O2 Sat by Pulse Oximetry 96 01/28/19 19:17 Temperature 100.6 F H 01/28/19 19:17 Pulse Rate 62 01/28/19 22:27 Respiratory Rate 15 01/28/19 22:27 Blood Pressure 102/63 01/28/19 22:27 O2 Sat by Pulse Oximetry 98 01/28/19 22:27 Oxygen Delivery Oxygen Delivery Nasal Cannula Medical Decision Making - Lab Data Result diagrams: 01/28/19 21:08 01/28/19 21:03 Lab Results 01/28/19 01/28/19 01/28/19 Range/Units 20:40 21:03 21:03 WBC (4.3-11.1) K/mcL RBC (3.82-4.97) M/mcL Hgb (11.5-15.4) g/dL Hct (35.3-44.9) % MCV (83.0-100.0) fL MCH (28.0-33.3) pg MCHC (31.6-35.5) g/dL RDW (11.5-14.5) % Plt Count (140-400) K/mcL MPV (9.4-12.4) fL Immature Gran % (0-4) % Seg Neutrophils % % Lymphocytes % % Monocytes % % Eosinophils % % Basophils % % Neutrophils # (1.6-8.9) K/mcL Lymphocytes # (0.6-4.6) K/mcL Monocytes # (0.0-1.3) K/mcL Eosinophils # (0.0-0.6) K/mcL Basophils # (0.0-0.2) K/mcL Sample Site ABG pH (7.32-7.45) pH Units ABG pCO2 (35-45) mmHg ABG pO2 (85-104) mmHg ABG HCO3 (21-27) mEq/L ABG Total CO2 (20-26) mEq/L ABG O2 Saturation (95-98) % ABG Base Excess (-2 to 3) mEq/L Mathew Test O2 Delivery Device Inspired O2 (1-15=lpm [id number]=%) Sodium 139 (136-145) mEq/L Potassium 4.1 (3.5-5.1) mEq/L Chloride 110 H (98-107) mEq/L Carbon Dioxide 25 (23-29) mEq/L BUN 36 H (8-23) mg/dL Creatinine 1.23 H (0.60-1.20) mg/dL Est GFR ( Amer) 51 L (> 60) Est GFR (Non-Af Amer) 42 L (> 60) BUN/Creatinine Ratio 29 H (6-26) Glucose 120 H (70-105) mg/dL Calculated Osmolality 298 (280-300) Lactic Acid 0.8 (0.5-2.2) mmol/L Calcium 9.4 (8.6-10.3) mg/dL Magnesium 1.7 (1.6-2.6) mg/dL Total Bilirubin 0.4 (0.3-1.0) mg/dL AST 12 L (13-39) Units/L ALT 8 (7-52) Units/L Alkaline Phosphatase 53 (34-104) Units/L Troponin I 0.05 H* (< 0.04) ng/mL Serum Total Protein 6.2 L (6.4-8.9) g/dL Albumin 3.5 (3.5-5.7) g/dL Globulin 2.7 (2.4-3.5) g/dL Albumin/Globulin Ratio 1.3 (1.1-2.2) Urine Color Yellow (Yellow) Urine Clarity Cloudy A (Clear) Urine pH 5.0 (5.0-8.0) pH Units Ur Specific [place] 1.020 (1.010-1.025) Urine Protein 100 H (Neg-Trace) mg/dL Urine Glucose (UA) Normal (Normal) mg/dL Urine Ketones Negative (Negative) mg/dL Urine Blood Negative (Negative) Urine Nitrite Negative (Negative) Urine Bilirubin Negative (Negative) Urine Urobilinogen Normal (Normal) mg/dL Ur Leukocyte Esterase Moderate H (Negative) Urine Microscopic RBC 0-3 (0-3) per hpf Urine Microscopic WBC 5-15 H (0-3) per hpf Ur Squamous Epith Cells Many H (None-Few) per lpf Ur Transition Epith Cell Few (None-Few) per hpf Ur Renal Epithelial Cell Few (None-Few) per hpf Amorphous Sediment Moderate H (Few) Urine Bacteria Few (None-Few) per hpf Hyaline Casts None Seen (None-Few) per lpf Ur Culture Indicated? YES A (NO) 01/28/19 01/28/19 Range/Units 21:08 22:05 WBC 8.3 (4.3-11.1) K/mcL RBC 3.39 L (3.82-4.97) M/mcL Hgb 10.9 L (11.5-15.4) g/dL Hct 34.3 L (35.3-44.9) % MCV 101.2 H (83.0-100.0) fL MCH 32.2 (28.0-33.3) pg MCHC 31.8 (31.6-35.5) g/dL RDW 13.2 (11.5-14.5) % Plt Count 183 (140-400) K/mcL MPV 9.4 (9.4-12.4) fL Immature Gran % 0.4 (0-4) % Seg Neutrophils % 73.4 % Lymphocytes % 13.1 % Monocytes % 12.4 % Eosinophils % 0.2 % Basophils % 0.5 % Neutrophils # 6.1 (1.6-8.9) K/mcL Lymphocytes # 1.1 (0.6-4.6) K/mcL Monocytes # 1.0 (0.0-1.3) K/mcL Eosinophils # 0.0 (0.0-0.6) K/mcL Basophils # 0.0 (0.0-0.2) K/mcL Sample Site L Radial ABG pH 7.36 (7.32-7.45) pH Units ABG pCO2 44 (35-45) mmHg ABG pO2 88 (85-104) mmHg ABG HCO3 25 (21-27) mEq/L ABG Total CO2 26 (20-26) mEq/L ABG O2 Saturation 96 (95-98) % ABG Base Excess -1 (-2 to 3) mEq/L Mathew Test Positive O2 Delivery Device Cannula Inspired O2 3.0 (1-15=lpm [id number]=%) Sodium (136-145) mEq/L Potassium (3.5-5.1) mEq/L Chloride (98-107) mEq/L Carbon Dioxide (23-29) mEq/L BUN (8-23) mg/dL Creatinine (0.60-1.20) mg/dL Est GFR ( Amer) (> 60) Est GFR (Non-Af Amer) (> 60) BUN/Creatinine Ratio (6-26) Glucose (70-105) mg/dL Calculated Osmolality (280-300) Lactic Acid (0.5-2.2) mmol/L Calcium (8.6-10.3) mg/dL Magnesium (1.6-2.6) mg/dL Total Bilirubin (0.3-1.0) mg/dL AST (13-39) Units/L ALT (7-52) Units/L Alkaline Phosphatase (34-104) Units/L Troponin I (< 0.04) ng/mL Serum Total Protein (6.4-8.9) g/dL Albumin (3.5-5.7) g/dL Globulin (2.4-3.5) g/dL Albumin/Globulin Ratio (1.1-2.2) Urine Color (Yellow) Urine Clarity (Clear) Urine pH (5.0-8.0) pH Units Ur Specific [place] (1.010-1.025) Urine Protein (Neg-Trace) mg/dL Urine Glucose (UA) (Normal) mg/dL Urine Ketones (Negative) mg/dL Urine Blood (Negative) Urine Nitrite (Negative) Urine Bilirubin (Negative) Urine Urobilinogen (Normal) mg/dL Ur Leukocyte Esterase (Negative) Urine Microscopic RBC (0-3) per hpf Urine Microscopic WBC (0-3) per hpf Ur Squamous Epith Cells (None-Few) per lpf Ur Transition Epith Cell (None-Few) per hpf Ur Renal Epithelial Cell (None-Few) per hpf Amorphous Sediment (Few) Urine Bacteria (None-Few) per hpf Hyaline Casts (None-Few) per lpf Ur Culture Indicated? (NO)
[2019-01-28] MEDS ORDERED: cefTRIAXone 1,000 MG in Water for inj. (sterile) 20 ML 10 ML IVP ONE (22:49)
[2019-01-29] MEDS ORDERED: Naloxone 0.4 MG/ML INJ IVP PRN (02:18)
[2019-01-29] MEDS ORDERED: D5% in Water 1,000 ML IVC PRN (02:30)
[2019-01-29] MEDS ORDERED: *HR* Dextrose 50 % in Water (Syg) 50 ML SYRINGE IVP PRN (02:30)
[2019-01-29] MEDS ORDERED: Dextrose Gel 15 GM/37.5 ML TUBE PO PRN ×2 (02:30)
--- NOTE | 2019-01-29 02:34 | Internal Med History&Physical ---
Date of Encounter: 01/29/19 Time of Encounter: 02:31 Internal Medicine - H&P: HPI Chief complaint: Weakness, chest pain Admitted From: Emergency Dept Plans for Post Hospital Care: Home History of present illness: Ms. Beck is a 83 year old female with history of coronary artery disease, hypertension, COPD, type 2 diabetes who presents with chest pain and lower extremity weakness. Patient states that during the day today she had progressive lower extremity weakness. She states this got worse throughout the day and I got to the point where she had difficulty getting up and moving around. She states she has never had anything like this before. She reports chronic low back pain that is unchanged and she has a spinal stimulator in place. Denies any bowel or bladder dysfunction. Denies any numbness or tinglin g. Denies any pain in her legs. She also reports intermittent chest pain throughout the day that she describes as a pressure in the center of her chest. She states it does not radiate. Denies shortness of breath, nausea, vomiting, diaphoresis. Discussed with patient's daughters who state that the patient is a DNR CCA. Past Med Surg Social Fam HX - Past Medical History Medical history: arthritis, CHF, COPD, coronary artery disease, diabetes, fibromyalgia, hyperlipidemia, hypertension, myocardial infarction, renal disease, thyroid disease Additional medical history: MACULAR DEGENERATION, peripheral diabetic neuropathy. Psychiatric history: no psych history - Past Surgical History Surgical History: cholecystectomy Additional surgical history: [employer] BACK PAIN STIMULATOR, 4 cardiac stents, Left subclavian artery angioplasty - Social History Smoking Status: Former smoker Smokeless Tobacco Status: No Alcohol use: none Drug use: none - Family History Sister Family Member Ethnicity: Non- Living Status: Hx Family Cardiac Disorders: Yes (CVA x2) Hx Family Cancer: Yes (Breast) Hx Family Endocrine Disorder: Yes (DM) Hx Family Neurologic Disorders: Yes (CVA) Mother Family Member Ethnicity: Non- Living Status: Hx Family Cardiac Disorders: Yes (CAD, CHF) Father Family Member Ethnicity: Non- Living Status: Hx Family Cancer: Yes (Colon) Brother Family Member Ethnicity: Non- Living Status: Hx Family Cardiac Disorders: Yes (CAD) Hx Family Respiratory Disorders: Yes (Asthma) Internal Medicine - H&P: Meds Clopidogrel [Plavix] 75 mg PO DAILY 08/17/17 [History] Gabapentin [Neurontin] 300 mg PO TID 08/17/17 [History] Memantine HCl [Namenda Xr] 28 mg PO DAILY 08/17/17 [History] Atorvastatin [Lipitor] 10 mg PO HS 08/18/17 [History] Linagliptin [Tradjenta] 5 mg PO DAILY 08/18/17 [History] Cholecalciferol (Vitamin D3) [Vitamin D3] 1,000 unit PO DAILY 01/23/19 [History] [place]-3/Dha/Epa/Fish Oil [Fish Oil 1,000 mg Softgel] 1 cap PO DAILY 01/23/19 [History] Aspirin [Adult Aspirin Regimen] 81 mg PO DAILY 01/25/19 [History] Budesonide/Formoterol 80/4.5 [Symbicort 80/4.5] 2 puff IH BID 01/25/19 [History] Diclofenac Sodium [Voltaren] 1 - 2 gm TP QID PRN 01/25/19 [History] Levothyroxine Sodium [Levo-T] 112 mcg PO QAM 01/25/19 [History] Lidocaine Viscous Oral Soln 5 ml PO DAILY PRN 01/25/19 [History] Lisinopril [Zestril] 5 mg PO DAILY 01/25/19 [History] Vit C/Vit E/Lutein/Min/[place]-3 [Ocuvite Softgel] 1 cap PO DAILY 01/25/19 [Hist ory] Metoprolol [Lopressor] 25 mg PO BID #60 tablet 01/27/19 [Rx] Nitroglycerin 0.4 mg SL Q5MPRN PRN #15 tab.subl 01/27/19 [Rx] Isosorbide MONOnitrate (24 HR) [Imdur] 60 mg PO DAILY 01/28/19 [History] Allergy/AdvReac Type Severity Reaction Status Date / Time morphine Allergy Difficulty Verified 01/23/19 18:03 Breathing adhesive tape AdvReac Itching Verified 01/23/19 18:03 ciprofloxacin [From Cipro] AdvReac Difficulty Verified 01/23/19 18:03 Breathing Penicillins AdvReac Difficulty Verified 01/23/19 18:03 Breathing Sulfa (Sulfonamide AdvReac Difficulty Verified 01/23/19 18:03 Antibiotics) Breathing All Systems PM: A 10-system review of systems was performed and is negative for pertinent findings except as documented above in the HPI. Review of systems: 10 point review of systems was obtained and negative other than stated below: - Constitutional Constitutional: no chills, no fever(s) - Cardiovascular Cardiovascular ROS IM: chest pain, no dyspnea - Respiratory Respiratory: no dyspnea - Gastrointestinal Gastrointestinal: abdominal pain, nausea, no diarrhea, no vomiting - Neurological Neurological ROS: weakness, no confusion, no focal weakness, no headache(s), no numbness, no radicular pain, no tingling - Constitutional Vitals: Temp Pulse Resp BP Pulse Ox 98.0 F 57 16 129/56 95 01/29/19 01:27 01/29/19 01:27 01/29/19 01:27 01/29/19 01:27 01/29/19 01:27 General appearance: Present: A&O X 3, pleasant, no acute distress Exam: . - Head Head exam: Present: atraumatic, normal inspection, normocephalic - Eye Eye exam: Present: EOMI, PERRL - ENT ENT exam: Present: mucous membranes moist, normal oropharynx - Neck Neck exam general surgery: Present: full ROM. Absent: tenderness - Respiratory Respiratory exam: Present: CTAB. Absent: rales, rhonchi, wheezes - Cardiovascular Cardiovascular exam: Present: RRR. Absent: gallop, rubs, systolic murmur - GI/Abdominal GI/Abdominal exam: Present: normal bowel sounds, soft. Absent: distended, tenderness - Extremities Exam Extremities exam: Present: warm. Absent: pedal edema, tenderness - Neurological Exam Neurological exam: Present: alert, CN II-XII intact, no focal deficits, strengths equal and symetr throughout. Absent: facial droop, speech deficit Additional comments: Strength 5 out of 5 in all 4 extremities. - Psychiatric Psychiatric exam: Present: normal affect, normal mood - Skin Skin exam: Present: dry, intact, warm Internal Med - H&P Results - Labs CBC & Chem 7: 01/28/19 21:08 01/28/19 21:03 Labs: Short CBC 01/28/19 Range/Units 21:08 WBC 8.3 (4.3-11.1) K/mcL Hgb 10.9 L (11.5-15.4) g/dL Hct 34.3 L (35.3-44.9) % Plt Count 183 (140-400) K/mcL Neutrophils # 6.1 (1.6-8.9) K/mcL BMP 01/28/19 21:03 Sodium 139 Potassium 4.1 Chloride 110 H Carbon Dioxide 25 BUN 36 H Creatinine 1.23 H Glucose 120 H Calcium 9.4 Cardiac Enzymes 01/28/19 Range/Units 21:03 Troponin I 0.05 H* (< 0.04) ng/mL Liver Function 01/28/19 Range/Units 21:03 Total Bilirubin 0.4 (0.3-1.0) mg/dL AST 12 L (13-39) Units/L ALT 8 (7-52) Units/L Alkaline Phosphatase 53 (34-104) Units/L Albumin 3.5 (3.5-5.7) g/dL Urine 01/28/19 Range/Units 20:40 Urine Color Yellow (Yellow) Urine Clarity Cloudy A (Clear) Urine pH 5.0 (5.0-8.0) pH Units Ur Specific [place] 1.020 (1.010-1.025) Urine Protein 100 H (Neg-Trace) mg/dL Urine Glucose (UA) Normal (Normal) mg/dL - ABG Interpretation ABG results: 01/28/19 22:05 ABG pH 7.36 ABG pCO2 44 ABG pO2 88 ABG HCO3 25 ABG Total CO2 26 ABG O2 Saturation 96 ABG Base Excess -1 - Impressions ITS Impressions Chest X-Ray 01/28/19 20:23 IMPRESSION: Enlarged cardiopericardial silhouette. Small bilateral pleural effusions. D/ / Tatum De Oliveira Cha, MD / Tatum De Oliveira Cha, MD Interpreting Provider: Tatum De Oliveira Cha, MD - Assessment and Plan (1) Chest pain Current Visit: No Status: Acute Assessment and plan: Patient reports intermittent chest pain. She is recently admitted for chest pain and had a stress test and echo that were unremarkable, with no evidence of ischemia on stress test. On her previous admission troponins were negative however in the ER troponin was 0.05. Will trend troponins. Given intermittent chest pain and mild troponin elevation we will consult cardiology for further recommendations. Keep patient nothing by mouth until cardiology evaluation. Qualifiers: Chest pain type: other chest pain Qualified Code(s): R07.89 - Other chest pain; R07.8 - Other chest pain (2) Generalized weakness Current Visit: Yes Status: Acute Assessment and plan: Patient reports weakness in her lower extremities to the point that she is unable to walk. On exam she is 5 out of 5 strength in all lower [place]'s. Etiology unclear. May be related to cardiac disease as discussed above, also patient appears to have underlying UTI which may be contributing. PT/OT consult. (3) UTI (urinary tract infection) Current Visit: Yes Status: Acute Assessment and plan: Patient presents with generalized weakness, although she does not have dysuria she does have leukocyte esterase on her UA. Unclear if infection is contributing but will treat empirically with Rocephin 2 g every 24 hours. Qualifiers: Urinary tract infection type: acute cystitis Hematuria presence: without hematuria Qualified Code(s): N30.00 - Acute cystitis without hematuria (4) Diabetes mellitus Current Visit: No Status: Chronic Assessment and plan: Blood sugar under good control. Hold home antidiabetic medications and start low-dose sliding scale insulin. Continue monitor blood sugars and adjust as necessary. Qualifiers: Diabetes mellitus type: type 2 Diabetes mellitus tariff compiling clerk insulin use: without intermediate use Diabetes mellitus complication status: with kidney complications Diabetes mellitus complication detail: with chronic kidney disease Chronic kidney disease stage: stage 3 (moderate) Qualified Code(s): E11.22 - Type 2 diabetes mellitus with diabetic chronic kidney disease; N18.3 - Chronic kidney disease, stage 3 (moderate) (5) CKD (chronic kidney disease) Current Visit: No Status: Chronic Assessment and plan: Patient presents EKG stage III, GFR 42 on presentation which appears to be at baseline. Continue to monitor renal function daily. Qualifiers: Chronic kidney disease stage: stage 3 (moderate) Qualified Code(s): N18.3 - Chronic kidney disease, stage 3 (moderate) (6) Diastolic CHF Current Visit: No Status: Chronic Assessment and plan: Does not appear to be in acute exacerbation. Continue home medications. Qualifiers: Heart failure chronicity: chronic Qualified Code(s): I50.32 - Chronic diastolic (congestive) heart failure (7) Chronic respiratory failure with hypoxia Current Visit: No Status: Acute Assessment and plan: Patient admitted 90s on her home O2 dose. Continue supplemental oxygen to maintain oxygen saturation greater than 88%. (8) DVT prophylaxis Current Visit: No Status: Acute Assessment and plan: Heparin 5000 units subcutaneous twice a day. - Time Spent With Patient Total time spent is greater than 50% in coordination of care (as documented) at patient's floor/unit and/or counseling patient:
[2019-01-29 03:20] LABS: Basophils % 0.4 %; Eosinophils # 0.1 K/mcL (0.0-0.6); Eosinophils % 0.9 %; Hematocrit 32.1 % (35.3-44.9); Hemoglobin 10.3 g/dL (11.5-15.4); Immature Granulocytes % 0.3 % (0-4); Lymphocytes # 1.7 K/mcL (0.6-4.6); Lymphocytes % 24.2 %; Mean Corpuscular HGB Conc 32.1 g/dL (31.6-35.5); Mean Corpuscular Hemoglobin 32.9 pg (28.0-33.3); Mean Corpuscular Volume 102.6 fL (83.0-100.0); Mean Platelet Volume 9.5 fL (9.4-12.4); Monocytes # 1.1 K/mcL (0.0-1.3); Platelet Count 163 K/mcL (140-400); Red Blood Count 3.13 M/mcL (3.82-4.97); Red Cell Distribution Width 13.4 % (11.5-14.5); Segmented Neutrophils % 58.2 %; White Blood Count 6.9 K/mcL (4.3-11.1)
[2019-01-29 03:37] LABS: Calcium 9.1 mg/dL (8.6-10.3); Potassium 3.9 mEq/L (3.5-5.1)
[2019-01-29] MEDS: Insulin LISPRO 300 UNITS/3 ML VIAL SQ SCH ×4 (04:57→23:55)
[2019-01-29] MEDS: *HR* Heparin 5,000 UNIT/ML VIAL SQ SCH ×2 (05:00→15:57)
[2019-01-29] MEDS: Budesonide/Formoterol 80/4.5 MDI IH SCH ×2 (08:02→20:03)
--- NOTE | 2019-01-29 10:15 | Cardiology Consult Note ---
<Gopal Dominguez R - Last Filed: 01/29/19 10:17> Date of Encounter: 01/29/19 Time of Encounter: 10:12 Assessment and Plan (1) Chest pain Current Visit: No Status: Acute Chest pressure began , intermittent with exertion. Pain radiates to left arm , center of her back, left jaw. Associated symptoms nausea and diaphoresis. Improves with nitro. Troponin borderline 0.05, 0.04. 2 day nuclear stress test 01/25/19 negative for ischemia or infarct. TTE 01/24/19: LVEF 60-65%. Normal LV chamber size and function. Asymmetric hypertrophy of the basal septum. Very mild LVOT obstruction. Mean gradient 7 mmHg. Mild LVDD. Normal RV structure and function. Severely dilated LA. Moderate MAC. Mild MR. Mild MS. MG 5 mmHg (HR 66 bpm). Mild TR. Mild phtn. Increased BB and Imdur and pt was d/c'd home 01/27/19. She presents with recurrent chest pain. Given recurrent chest pain despite medical management and borderline troponins, recommend [facility] Thursday as long as renal function remains stable. R/B/A discussed. Pt agrees. Follow peripherally until [facility] Thursday. Will discuss and review with Dr. Burton. Qualifiers: Chest pain type: other chest pain Qualified Code(s): R07.89 - Other chest pain; R07.8 - Other chest pain (2) Elevated troponin Current Visit: Yes Status: Acute Troponins borderline 0.05, 0.04--nondiagnostic for ACS. No ischemic ECG changes. As above, plan for [facility] given recurrent chest pain. (3) CAD (coronary artery disease) Current Visit: No Status: Chronic Hx CAD and PCI. Continue ASA, Statin, Plavix, BB, Imdur. Qualifiers: Coronary Disease-Associated Artery/Lesion type: [place] artery [place] vs. transplanted heart: [place] heart Associated angina: without angina Qualified Code(s): I25.10 - Atherosclerotic heart disease of [place] coronary artery without angina pectoris Discussion w patient/family: The assessment and plan as outlined above was discussed with the patient and/or family members who expressed understanding and agreement. All questions were answered. Thank you for involving us in the care of your patient. Please call with any questions. I will discuss all the above with Dr. Burton and make changes as necessary. History of Present Illness Consult date: 01/29/19 Consult reason: chest pain Chief complaint: chest pain, weakness History of present illness: Ms. Beck is a 83 year old female w/PMH of previous NE/CAD s/p PCI, diastolic CHF, diabetes, HTN, HLD, arthritis, COPD, fibromyalgia, CKD, and thyroid disease presents to ED after being recently discharged 01/26/19 for recurrent chest pain. Chest pain is intermittent with exertion. Pain radiates to left arm , center of her back, left jaw. Associated symptoms nausea and diaphoresis. Improves with nitro. Troponins borderline, 0.05, 0.04. Also reports BLE weakness. Cardiology consulted for further recs. Prior CV testing: TTE 01/24/19: LVEF 60-65%. Normal LV chamber size and function. Asymmetric hyp ertrophy of the basal septum. Very mild LVOT obstruction. Mean gradient 7 mmHg. Mild LVDD. Normal RV structure and function. Severely dilated LA. Moderate mitral annular calcification. Mild MR. Mild MS. Mean gradient 5 mmHg (HR 66 bpm). Mild TR. Mild phtn. Nuclear stress test 01/24/19: Perfusion imaging negative for ischemia or infarct. Gated EF >70%. PVCs and ventricular bigeminy. Past Med Surg Social Fam HX - Past Medical History Medical history: arthritis, CHF, COPD, coronary artery disease, diabetes, fibromyalgia, hyperlipidemia, hypertension, myocardial infarction, renal disease, thyroid disease Additional medical history: MACULAR DEGENERATION, peripheral diabetic neuropathy. Psychiatric history: no psych history - Past Surgical History Surgical History: cholecystectomy Additional surgical history: [employer], 4 cardiac stents, Left subclavian artery angioplasty - Social History Smoking Status: Former smoker Smokeless Tobacco Status: No Alcohol use: none Drug use: none - Family History Sister Family Member Ethnicity: Non- Living Status: Hx Family Cardiac Disorders: Yes (CVA x2) Hx Family Cancer: Yes (Breast) Hx Family Endocrine Disorder: Yes (DM) Hx Family Neurologic Disorders: Yes (CVA) Mother Family Member Ethnicity: Non- Living Status: Hx Family Cardiac Disorders: Yes (CAD, CHF) Father Family Member Ethnicity: Non- Living Status: Hx Family Cancer: Yes (Colon) Brother Family Member Ethnicity: Non- Living Status: Hx Family Cardiac Disorders: Yes (CAD) Hx Family Respiratory Disorders: Yes (Asthma) Medications and Allergies Clopidogrel [Plavix] 75 mg PO DAILY 08/17/17 [History] Gabapentin [Neurontin] 300 mg PO TID 08/17/17 [History] Memantine HCl [Namenda Xr] 28 mg PO DAILY 08/17/17 [History] Atorvastatin [Lipitor] 10 mg PO HS 08/18/17 [History] Linagliptin [Tradjenta] 5 mg PO DAILY 08/18/17 [History] Cholecalciferol (Vitamin D3) [Vitamin D3] 1,000 unit PO DAILY 01/23/19 [History] [place]-3/Dha/Epa/Fish Oil [Fish Oil 1,000 mg Softgel] 1 cap PO DAILY 01/23/19 [History] Aspirin [Adult Aspirin Regimen] 81 mg PO DAILY 01/25/19 [History] Budesonide/Formoterol 80/4.5 [Symbicort 80/4.5] 2 puff IH BID 01/25/19 [History] Diclofenac Sodium [Voltaren] 1 - 2 gm TP QID PRN 01/25/19 [History] Levothyroxine Sodium [Levo-T] 112 mcg PO QAM 01/25/19 [History] Lidocaine Viscous Oral Soln 5 ml PO DAILY PRN 01/25/19 [History] Lisinopril [Zestril] 5 mg PO DAILY 01/25/19 [History] Vit C/Vit E/Lutein/Min/[place]-3 [Ocuvite Softgel] 1 cap PO DAILY 01/25/19 [History] Metoprolol [Lopressor] 25 mg PO BID #60 tablet 01/27/19 [Rx] Nitroglycerin 0.4 mg SL Q5MPRN PRN #15 tab.subl 01/27/19 [Rx] Isosorbide MONOnitrate (24 HR) [Imdur] 60 mg PO DAILY 01/28/19 [History] Allergy/AdvReac Type Severity Reaction Status Date / Time morphine Allergy Difficulty Verified 01/23/19 18:03 Breathing adhesive tape AdvReac Itching Verified 01/23/19 18:03 ciprofloxacin [From Cipro] AdvReac Difficulty Verified 01/23/19 18:03 Breathing Penicillins AdvReac Difficulty Verified 01/23/19 18:03 Breathing Sulfa (Sulfonamide AdvReac Difficulty Verified 01/23/19 18:03 Antibiotics) Breathing All Systems Review: The remainder of the systems were reviewed and are negative - Cardiovascular Cardiovascular: as per HPI, chest pain with exertion, dyspnea on exertion, radiating jaw, neck or arm pain - Respiratory Respiratory: dyspnea Physical Examination Vital Signs, Last 4 Hours Temp Pulse Resp BP Pulse Ox 01/29/19 08:14 97.7 F 65 16 142/60 95 01/29/19 08:04 15 97 Vital Signs Temp Pulse Resp BP Pulse Ox 01/29/19 08:14 97.7 F 65 16 142/60 95 01/29/19 08:04 15 97 01/29/19 05:20 97.4 F L 45 15 126/65 97 01/29/19 01:27 98.0 F 57 16 129/56 95 01/29/19 00:30 56 16 121/56 98 01/28/19 22:27 62 15 102/63 98 01/28/19 21:30 66 15 124/41 96 01/28/19 20:00 67 23 159/56 97 01/28/19 19:27 96 01/28/19 19:17 100.6 F H 73 23 168/53 96 Intake and Output 01/28/19 01/29/19 01/29/19 23:59 07:59 15:59 Intake Total 10 10 Output Total 0 / 0 Balance 10 / 10 Intake: IV Fluids 10 / 10 Rocephin 1,000 MG In Water for 10 10 inj. (sterile) 10 ML @ 600 mls/ hr IVP ONCE ONE Rx#:[id number] Output: Urine 0 / 0 Other: # Voids 1 Weight 90.718 kg 93.9 kg Blood Glucose* 97 Patient Weight 01/29/19 23:59 Weight 93.9 kg General: Conversant, No Apparent Distress HEENT: Atraumatic, Normocephaly, Mucus Membranes Moist Neck: No JVD, Normal carotid pulses Cardiac: Reg Rate and Rhythm, Normal S1 and S2, No Murmur Lungs: Normal Breath Sounds, No Wheeze, Rales, Rhonchi Neuro: Alert and responsive, No focal deficits noted Abdomen: Soft, Non-Tender Skin: No rashes noted on visualized skin Musculoskeletal: No Chest Wall Tenderness Extremities: No Clubbing, No Cyanosis, No Edema, Normal Pulses Results 01/29/19 03:02 01/29/19 03:02 Lab Results 01/28/19 01/28/19 01/29/19 21:03 21:08 03:02 WBC 8.3 6.9 Hgb 10.9 L 10.3 L Hct 34.3 L 32.1 L Plt Count 183 163 Sodium 139 Potassium 4.1 Chloride 110 H Carbon Dioxide 25 BUN 36 H Creatinine 1.23 H Glucose 120 H Calcium 9.4 Magnesium 1.7 Total Bilirubin 0.4 AST 12 L ALT 8 Alkaline Phosphatase 53 Troponin I 0.05 H* 01/29/19 01/29/19 01/29/19 03:02 03:02 03:02 WBC Hgb Hct Plt Count Sodium 138 Potassium 3.9 Chloride 112 H Carbon Dioxide 26 BUN 37 H Creatinine 1.22 H Glucose 104 Calcium 9.1 Magnesium 1.7 Total Bilirubin AST ALT Alkaline Phosphatase Troponin I 0.04 H* 01/29/19 08:39 WBC Hgb Hct Plt Count Sodium Potassium Chloride Carbon Dioxide BUN Creatinine Glucose Calcium Magnesium Total Bilirubin AST ALT Alkaline Phosphatase Troponin I 0.04 H* Impressions Chest X-Ray 01/28/19 20:23 IMPRESSION: Enlarged cardiopericardial silhouette. Small bilateral pleural effusions. D/ / Tatum De Oliveira Cha, MD / Tatum De Oliveira Cha, MD Interpreting Provider: Tatum De Oliveira Cha, MD Active Medications Aspirin (Aspirin Ec) 81 mg PO DAILY [facility] Stop: 07/31/19 09:01 Atorvastatin Calcium (Lipitor) 10 mg PO HS [facility] Stop: 07/31/19 21:01 Budesonide/Formoterol Fumarate (Symbicort) 2 puff IH BIDR [facility]; Protocol Stop: 07/31/19 10:01 Last Admin: 01/29/19 08:02 Dose: 2 puff Documented by: Clopidogrel Bisulfate (Plavix) 75 mg PO DAILY [facility] Stop: 07/31/19 09:01 Dextrose/Water (Dextrose 50% (Syg)) 25 ml IVP AD PRN PRN Reason: Hypoglycemia Stop: 07/31/19 02:31 Gabapentin (Neurontin) 300 mg PO TID [facility] Stop: 07/31/19 09:01 Glucagon (Glucagen) 1 mg IM ONCE PRN PRN Reason: Hypoglycemia Stop: 07/31/19 02:31 Glucose (Gluctose) 15 gm PO ONCE PRN PRN Reason: Hypoglycemia Stop: 07/31/19 02:31 Glucose (Gluctose) 30 gm PO ONCE PRN PRN Reason: Hypoglycemia Stop: 07/31/19 02:31 Heparin Sodium (Porcine) (Heparin) 5,000 unit SQ Q12HCO [facility] Stop: 07/31/19 06:01 Last Admin: 01/29/19 05:00 Dose: 5,000 unit Documented by: Ceftriaxone Sodium 2,000 mg/ (Sterile Water) 20 mls @ 40 mls/hr IVPB Q24H [facility] Stop: 07/31/19 23:01 Dextrose (Dextrose 5%) 1,000 mls @ 100 mls/hr IVC .Q10H PRN PRN Reason: HYPOGLYCEMIA Stop: 07/31/19 02:31 Insulin Human Lispro (Humalog) 0 units SQ Q6HR [facility]; Protocol Stop: 07/31/19 06:01 Last Admin: 01/29/19 04:57 Dose: Not Given Documented by: Levothyroxine Sodium (Synthroid) 112 mcg PO 0630 [facility] Stop: 07/31/19 06:31 Last Admin: 01/29/19 05:00 Dose: 112 mcg Documented by: Lisinopril (Zestril) 5 mg PO DAILY [facility]; Protocol Stop: 07/31/19 09:01 Memantine (Namenda) 10 mg PO BID [facility] Stop: 07/31/19 09:01 Naloxone HCl (Narcan) 0.4 mg IVP Q2MPRN PRN PRN Reason: SEE COMMENTS Stop: 07/31/19 02:19 Vitamin D (Vitamin D) 1,000 unit PO DAILY [facility] Stop: 07/31/19 09:01 - Imaging and Cardiology Stress Test: report reviewed Echo: report reviewed - EKG Interpretation EKG results cardiology: personally reviewed (Sinus rhythm, ventricular bigeminy.), other (12 hr tele AVG HR 77, SR, frequent PVCs.) Consult Discharge Plan - Plan Referrals: Fabian Cooper, DO [Primary Care Provider] - (Appt has been requested. ) <Tammy Burton - Last Filed: 01/29/19 16:46> Date of Encounter: 01/29/19 - Attending Attestation Patient was seen and evaluated independently by me. Findings, assessment and plan were discussed at length with patient, questions answered. Agree with nurse practitioner's/resident's documentation. Addition as follows, 83 yoCF ho CAD PCI, CKD HTN, DM, COPD. Normal SPECT several days ago for angina. P/w chest pain again despite up-titration of BB and imdur. Mild trop elevation 0.05 max. Also c/o 1 episode of palpitations heart racing lasting 1-2 hours. ECG SR, frequent PVCs Mild BP elevation, CTA B/L, IR frequent PVCs, no LE edema. SPECT no ischemia or infarct on perfusion study. TTE EF 60-65%, LVOT gradient 7, RV nl, severe LAE, mild MR, mild MS, mild TR, mild PH. Cr 1.2 from 1.7 A: Mild troponin elevation, type II vs I Recurrent angina, failed to respond to 2-antianginal meds, typical feature, with negative SPECT Frequent PVCs, ventricular bigeminy, suspected NSVT or other tachyarrhythia before this admission Ho CAD PCI SKINNY on CKD resolved P: [facility] Thursday Tele for NSVT and PAF DAPT, statin, BB, imdur Tammy Burton MD, PhD Assessment and Plan Discussion w patient/family: The assessment and plan as outlined above was discussed with the patient and/or family members who expressed understanding and agreement. All questions were answered. Thank you for involving us in the care of your patient. Please call with any questions. History of Present Illness History of present illness: Ms. Beck is a 83 year old female All Systems Review: The remainder of the systems were reviewed and are negative Physical Examination Vital Signs, Last 4 Hours Temp Pulse Resp Pulse Ox 01/29/19 16:14 97.5 F L 48 16 95 Results 01/29/19 03:02 01/29/19 03:02 Lab Results 01/28/19 01/28/19 01/29/19 21:03 21:08 03:02 WBC 8.3 6.9 Hgb 10.9 L 10.3 L Hct 34.3 L 32.1 L Plt Count 183 163 Sodium 139 Potassium 4.1 Chloride 110 H Carbon Dioxide 25 BUN 36 H Creatinine 1.23 H Glucose 120 H Calcium 9.4 Magnesium 1.7 Total Bilirubin 0.4 AST 12 L ALT 8 Alkaline Phosphatase 53 Troponin I 0.05 H* 01/29/19 01/29/19 01/29/19 03:02 03:02 03:02 WBC Hgb Hct Plt Count Sodium 138 Potassium 3.9 Chloride 112 H Carbon Dioxide 26 BUN 37 H Creatinine 1.22 H Glucose 104 Calcium 9.1 Magnesium 1.7 Total Bilirubin AST ALT Alkaline Phosphatase Troponin I 0.04 H* 01/29/19 08:39 WBC Hgb Hct Plt Count Sodium Potassium Chloride Carbon Dioxide BUN Creatinine Glucose Calcium Magnesium Total Bilirubin AST ALT Alkaline Phosphatase Troponin I 0.04 H*
--- NOTE | 2019-01-29 11:10 | Event Note ---
Date of Encounter: 01/29/19 Time of Encounter: 11:10 Patient seen and examined. Review of the prize coordinator's note.2 day nuclear stress test 01/25/19 negative for ischemia or infarct. TTE 01/24/19: LVEF 60-65%. Normal LV chamber size and function. Asymmetric hypertrophy of the basal septum. Very mild LVOT obstruction. Mean gradient 7 mm Hg. Mild LVDD. Normal RV structure and function. Severely dilated LA. Moderate MAC. Mild MR. Mild MS. MG 5 mmHg (HR 66 bpm). Mild TR. Mild phtn. Increased BB and Imdur and pt was d/c'd home 01/27/19. Patient has borderline elevated troponin therefore recommended [facility] on Thursday as long as renal function remains stable. Review of lab with a stable creatinine Creatinine 1.16 on 01/24/2019 Abnormal urine analysis. Urine culture with no growth yet . Continue Rocephin
[2019-01-29] MEDS: Cholecalciferol (D-3) 1,000 UNIT TABLET PO SCH (11:26)
[2019-01-29] MEDS: Aspirin Enteric Coated 81 MG Tablet PO SCH (11:26)
[2019-01-29] MEDS: Gabapentin 300 MG CAPSULE PO SCH ×3 (11:26→19:54)
[2019-01-29] MEDS: Artificial Tears SOLN 15 ML BOTTLE BOTH EYES SCH ×2 (16:52→20:03)
[2019-01-29] MEDS: Isosorbide MONOnitrate (24 HR) 60 MG TAB.ER.24H PO SCH (17:25)
[2019-01-29] MEDS: Acetaminophen 325 MG TABLET PO PRN (19:54)
[2019-01-29] MEDS: MethylPREDNISolone 40 MG/ML VIAL IVP SCH (23:52)
[2019-01-29] MEDS: cefTRIAXone 2,000 MG in Water for inj. (sterile) 20 ML 20 ML IVPB SCH (23:52)
[2019-01-30] MEDS: Acetaminophen 325 MG TABLET PO PRN ×2 (04:02→22:19)
[2019-01-30] MEDS: MethylPREDNISolone 40 MG/ML VIAL IVP SCH ×2 (05:34→18:01)
[2019-01-30] MEDS: *HR* Heparin 5,000 UNIT/ML VIAL SQ SCH ×3 (05:34→22:19)
[2019-01-30] MEDS: Insulin LISPRO 300 UNITS/3 ML VIAL SQ SCH ×3 (06:17→16:38)
[2019-01-30] MEDS: Budesonide/Formoterol 80/4.5 MDI IH SCH ×2 (07:42→20:15)
[2019-01-30 07:49] LABS: Basophils % 0.4 %; Eosinophils % 0.2 %; Hematocrit 33.8 % (35.3-44.9); Immature Granulocytes % 0.4 % (0-4); Lymphocytes # 0.5 K/mcL (0.6-4.6); Lymphocytes % 9.8 %; Mean Corpuscular HGB Conc 32.5 g/dL (31.6-35.5); Mean Corpuscular Hemoglobin 32.5 pg (28.0-33.3); Mean Platelet Volume 9.4 fL (9.4-12.4); Monocytes # 0.1 K/mcL (0.0-1.3); Monocytes % 1.5 %; Neutrophils # 4.7 K/mcL (1.6-8.9); Platelet Count 180 K/mcL (140-400); Red Blood Count 3.38 M/mcL (3.82-4.97); Red Cell Distribution Width 13.1 % (11.5-14.5); Segmented Neutrophils % 87.7 %; White Blood Count 5.4 K/mcL (4.3-11.1)
[2019-01-30 08:05] LABS: Potassium 4.6 mEq/L (3.5-5.1)
[2019-01-30] MEDS: Artificial Tears SOLN 15 ML BOTTLE BOTH EYES SCH ×4 (08:27→22:18)
[2019-01-30] MEDS: Isosorbide MONOnitrate (24 HR) 60 MG TAB.ER.24H PO SCH (08:27)
[2019-01-30] MEDS: Cholecalciferol (D-3) 1,000 UNIT TABLET PO SCH (08:27)
[2019-01-30] MEDS: Aspirin Enteric Coated 81 MG Tablet PO SCH (08:27)
[2019-01-30] MEDS: Gabapentin 300 MG CAPSULE PO SCH ×3 (08:27→22:20)
--- NOTE | 2019-01-30 09:52 | Event Note ---
Date of Encounter: 01/30/19 Time of Encounter: 09:50 - Cardiology Event Note Creatinine 1.11 today--stable/improvement. NPO after midnight tonight for C tomorrow if renal function is stable. Indication is recurrent angina (2nd admission in 1 week) despite medication optimization and now with borderline troponins. R/B/A discussed. Pt agrees to proceed.
--- NOTE | 2019-01-30 11:32 | Internal Med Progress Note ---
Hospitalist Progress Note - Encounter Date of Encounter: 01/30/19 Time of Encounter: 11:28 - Subjective Interval History: No acute event overnight. Yesterday there was concern for bradycardia therefore no beta bryan was given. Reviewed the vitals. Review the lab but normal creatinine. Patient denies fever chills nausea vomiting headache dizziness chest pain shortness of breath abdominal pain diarrhea - Exam Vitals: Temp Pulse Resp BP Pulse Ox 97.8 F 62 18 155/70 95 01/30/19 08:03 01/30/19 08:03 01/30/19 08:03 01/30/19 08:03 01/30/19 08:03 Exam: General appearance: No acute distress, A&O X 3 Eye exam: EOMI, PERRLA ENT exam: Moist oral mucosa Neck nontender, supple Respiratory exam: Decreased breath sound bilaterally but no wheeze rhonchi or c rackles Cardiovascular exam: Regular rate and rhythm, no systolic murmur Abdominal exam: Soft, nontender, nondistended, positive bowel sounds Extremities exam: No calf tenderness, no pedal edema Present: Skin-no rash, warm, dry, intact Neurological exam: Alert, awake, oriented 3, CN II-XII intact, no focal deficits. No facial droop. Normal speech. Motor 5 x 5 in all extremities - Assessment and Plan (1) Chest pain Current Visit: No Status: Acute Assessment and Plan: Patient reports intermittent chest pain. She is recently admitted for chest pain and had a stress test and echo that were unremarkable, with no evidence of ischemia on stress test. On her previous admission troponins were negative however in the ER troponin was 0.05. Given intermittent chest pain and mild troponin elevation consulted cardiology -plan for [facility] tomorrow Discussed CODE STATUS and patient want to be full code (2) Wheeze Current Visit: Yes Status: Acute Assessment and Plan: Possible COPD exacerbation as patient had wheezing yesterday in the long but today no wheezing heard after starting Solu-Medrol. Will taper down IV Solu- Medrol. Continue DuoNeb. Oxygen supplementation History of COPD (3) Diabetes mellitus Current Visit: No Status: Chronic Assessment and Plan: Blood sugar under good control. Hold home antidiabetic medications and start low-dose sliding scale insulin. Continue monitor blood sugars . Diabetes diet. Hemoglobin A1c ordered (4) CKD (chronic kidney disease) Current Visit: No Status: Chronic Assessment and Plan: Acute on CK D3. Normal creatinine now. Avoid nephrotoxic drug. Monitor BMP daily. (5) Diastolic CHF Current Visit: No Status: Chronic Assessment and Plan: Does not appear to be in acute exacerbation. Continue home medications. (6) UTI (urinary tract infection) Current Visit: Yes Status: Acute Assessment and Plan: Patient presents with generalized weakness, although she does not have dysuria she does have leukocyte esterase on her UA. Her generalized weakness is improving after starting antibiotic. Urine culture pending. (7) Chronic respiratory failure with hypoxia Current Visit: No Status: Acute Assessment and Plan: Patient admitted 90s on her home O2 dose. Continue supplemental oxygen to maintain oxygen saturation greater than 88%. (8) Generalized weakness Current Visit: Yes Status: Acute Assessment and Plan: Improving. On admission patient reported weakness in her lower extremities to the point that she is unable to walk. On exam she is 5 out of 5 strength in all extremities. Will consult PT OT once cleared from cardiology (9) DVT prophylaxis Current Visit: No Status: Acute Assessment and Plan: Heparin 5000 units subcutaneous - Time Spent with Patient Total time spent is greater than 50% in coordination of care (as documented) at patient's floor/unit and/or counseling patient: 25 - 35 minutes Plan of Care Discussed with: patient Internal Medicine: Result - Labs CBC & Chem 7: 01/30/19 07:37 01/30/19 07:37 Labs: Short CBC 01/30/19 Range/Units 07:37 WBC 5.4 (4.3-11.1) K/mcL Hgb 11.0 L (11.5-15.4) g/dL Hct 33.8 L (35.3-44.9) % Plt Count 180 (140-400) K/mcL Neutrophils # 4.7 (1.6-8.9) K/mcL BMP 01/30/19 07:37 Sodium 140 Potassium 4.6 Chloride 105 Carbon Dioxide 26 BUN 30 H Creatinine 1.11 Glucose 180 H Calcium 9.0 - ABG Interpretation ABG results: ABG ABG pH 7.36 pH Units (7.32-7.45) 01/28/19 22:05 ABG pCO2 44 mmHg (35-45) 01/28/19 22:05 ABG pO2 88 mmHg (85-104) 01/28/19 22:05 ABG O2 Saturation 96 % (95-98) 01/28/19 22:05 Consult Discharge Plan - Plan Referrals: Fabian Cooper DO [Primary Care Provider] - (Appt has been requested. ) (1) Chest pain Qualifiers: Chest pain type: other chest pain Qualified Code(s): R07.89 - Other chest pain; R07.8 - Other chest pain (3) Diabetes mellitus Qualifiers: Diabetes mellitus type: type 2 Diabetes mellitus senior care insulin use: without terminal carman use Diabetes mellitus complication status: with kidney complications Diabetes mellitus complication detail: with chronic kidney disease Chronic kidney disease stage: stage 3 (moderate) Qualified Code(s): E11.22 - Type 2 diabetes mellitus with diabetic chronic kidney disease; N18.3 - Chronic kidney disease, stage 3 (moderate) (4) CKD (chronic kidney disease) Qualifiers: Chronic kidney disease stage: stage 3 (moderate) Qualified Code(s): N18.3 - Chronic kidney disease, stage 3 (moderate) (5) Diastolic CHF Qualifiers: Heart failure chronicity: chronic Qualified Code(s): I50.32 - Chronic diastolic (congestive) heart failure (6) UTI (urinary tract infection) Qualifiers: Urinary tract infection type: acute cystitis Hematuria presence: without hematuria Qualified Code(s): N30.00 - Acute cystitis without hematuria
[2019-01-30] MEDS: cefTRIAXone 2,000 MG in Water for inj. (sterile) 20 ML 20 ML IVPB SCH (22:18)
[2019-01-31] MEDS: Insulin LISPRO 300 UNITS/3 ML VIAL SQ SCH ×4 (01:02→18:22)
[2019-01-31] MEDS: *HR* Heparin 5,000 UNIT/ML VIAL SQ SCH ×3 (05:29→21:02)
[2019-01-31] MEDS: MethylPREDNISolone 40 MG/ML VIAL IVP SCH ×2 (05:34→18:22)
[2019-01-31 07:19] LABS: Estimated Average Glucose 137 mg/dl
[2019-01-31 07:32] LABS: Calcium 9.7 mg/dL (8.6-10.3); Potassium 4.5 mEq/L (3.5-5.1)
[2019-01-31] MEDS: Budesonide/Formoterol 80/4.5 MDI IH SCH ×2 (07:32→22:55)
[2019-01-31] MEDS: Aspirin Enteric Coated 81 MG Tablet PO SCH (08:39)
[2019-01-31] MEDS: Gabapentin 300 MG CAPSULE PO SCH ×3 (08:39→21:29)
[2019-01-31] MEDS: Artificial Tears SOLN 15 ML BOTTLE BOTH EYES SCH ×4 (08:39→21:28)
[2019-01-31] MEDS: Cholecalciferol (D-3) 1,000 UNIT TABLET PO SCH (08:39)
[2019-01-31] MEDS: Isosorbide MONOnitrate (24 HR) 60 MG TAB.ER.24H PO SCH (08:39)
--- NOTE | 2019-01-31 14:29 | Internal Med Progress Note ---
Hospitalist Progress Note - Encounter Date of Encounter: 01/31/19 Time of Encounter: 14:27 - Subjective Interval History: Pt states that she is hopeful to get cath soon so she can eat. She denies CP currently but says overall she does not feel well. She hopes to get wrist cath rather than groin as had large hematoma in groin after last cath. No N/V/D, no SOB. - Exam Vitals: Temp Pulse Resp BP Pulse Ox 97.9 F 80 18 155/68 96 01/31/19 10:58 01/31/19 10:58 01/31/19 10:58 01/31/19 10:58 01/31/19 10:58 Exam: General: NAD, poor eye contact as seems distracted, elderly and chronically ill appearing Thoracic: mildly diminished but no wheezing or crackles Cardio: Normal S1 and S2, regular rate and rhythm, does have systolic murmur Abdomen: Soft, nontender Extremities: Warm, well perfused. DP pulses 2+ b/l. No edema. Skin: Intact. No rashes, bruises, or ulcers Neuro: Awake, fully oriented. Speech fluent - Summary of Assessment and Plan Summary of Assessment and Plan: Nathalie Beck is an 83 F who p/w chest pain Chest pain: recent stress test w/o ischemia and TTE unremarkable for WMA, but now trop 0.05 and persistent intermittent CP - Cardio consult, appreciate plan for [facility] today COPD in acute exacerbation: - nebs - decrease steroids to pred 40 daily - home inhalers UTI: empiric rocephin while awaiting UCx, likely tomorrow CAD: ASA, plavix, statin, imdur Chronic hypoxic resp failure: home 2L DM2: controlled, w renal complications and peripheral neuropathy, continue home lisinopril 5 and gabapentin, use SSI CKD3b: renally dose meds, will monitor after [facility] HFpEF: euvolemic Hypothyroidism: home synthroid PPx: sqh FEN: NPO then cardiac ADA, no MIVF Lines: PIV Consults: Cardio Code: Full Dispo: patient requires inpatient eval and management at this time. Anticipate 1-2 days. Will be homegoing Internal Medicine: Result - Labs CBC & Chem 7: 01/30/19 07:37 01/31/19 05:56 Labs: BMP 01/31/19 05:56 Sodium 141 Potassium 4.5 Chloride 105 Carbon Dioxide 26 BUN 41 H Creatinine 1.17 Glucose 168 H Calcium 9.7 - ABG Interpretation ABG results: ABG ABG pH 7.36 pH Units (7.32-7.45) 01/28/19 22:05 ABG pCO2 44 mmHg (35-45) 01/28/19 22:05 ABG pO2 88 mmHg (85-104) 01/28/19 22:05 ABG O2 Saturation 96 % (95-98) 01/28/19 22:05 Consult Discharge Plan - Plan Referrals: Fabian Cooper DO [Primary Care Provider] - 02/02/19 11:30 am ()
--- NOTE | 2019-01-31 16:34 | Pre-Sedation Evaluation ---
Pre-sedation evaluation - Pre-sedation checklist Date of procedure: 01/31/19 Procedure: Left heart catheterizaton Recent Vitals: Last Vital Signs Temp 98.0 F 01/31/19 16:02 Pulse 75 01/31/19 16:02 Resp 17 01/31/19 16:02 BP 144/61 01/31/19 16:02 Pulse Ox 92 01/31/19 16:02 H&P (including ROS) documented in medical record: Yes Previous reaction to sedatives/anesthetics: No Dietary Status: NPO after Midnight Dentition: dentures removed ASA Classification *see protocol: CLASS II-Mild systemic disease Cardiac Registry (Cardio Only) - Functional Capacity Functional Capacity: >=4 METS without symptoms - Clincal Frailty Scale Clinical Frailty Scale: Managing Well
[2019-01-31] MEDS ORDERED: 0.9 % Sodium Chloride 1,000 ML ONE ×2 (17:26→17:27)
[2019-01-31] MEDS ORDERED: *HR* Heparin 10,000 UNIT/10 ML VIAL ONE (17:26)
[2019-01-31] MEDS ORDERED: Heparin 1,000 UNITS/500 mL 500 ML ONE (17:26)
[2019-01-31] MEDS ORDERED: ISOVUE-370 200 ML INFUS..BTL ONE (17:27)
[2019-01-31] MEDS ORDERED: Nitroglycerin 1,000 MCG/10 ML VIAL IV ONE (17:27)
[2019-01-31] MEDS ORDERED: *HR* FentaNYL (PF) 100 MCG/2 ML VIAL ONE (17:46)
[2019-01-31] MEDS ORDERED: *HR* Midazolam HCl 2 MG/2 ML VIAL ONE (17:46)
--- NOTE | 2019-01-31 18:32 | Invasive Diagnostic Lab Proc ---
Name: Nathalie Beck Date of Study: 01/31/2019 Date: 1935 Ht: 61.8in Medical Record#: [id number] Age: 83 Wt: 205.03lb Gender: Female BSA: 1.93 Order #: [id number] BMI: 37.73 Physicians Procedure Physician: Ifrah Dean MD Referring MD: Referring MD: Staff Name Position Time In Robbin Bartholomew RN Monitor 05:43 PM Effie Tinoco RT (R) Scrub 05:43 PM Omaira Quispe RN Screw Machine Set Up Operator 05:43 PM Indications Indication Unstable Angina Procedures Performed Procedure CORONARY ARTERY ANGIO S&I Pre-Procedure Checklist Informed consent is complete signed and on chart. H&P is on chart. ID band is on and ID verified with patient. Patient NPO for procedure The procedure was described for the patient and questions were answered. Blood Pressure: 146/62 ECG is on chart. Plan of Care Patient will tolerate the procedure without complications. Adequate level of comfort will be maintained. Hemodynamics will remain stable Patient will recover from procedure without complications. Respiratory function will be maintained. Cardiac rhythm will remain stable. Patient temperature will be maintained. Patient and/or family have verbalized understanding of the procedure. Patient Education Chief Complaint/Reason for Test: Cardiac Cath Developmental Category: Geriatric (65+ years) Developmentally Appropriate for Age: Yes Learning Barriers: None Education Needs: Procedure Education Method: Verbal Information Taught: Cardiac Cath Educational Evaluation: Able to repeat information Intravenous Access Time IV Size Location DC'd Fluid/Drip Rate Units RN 18g 1 08/20" Patent On Arrival Rt Antecubital 0.9NaCl 50 ml/hr Allergies TAPE Penicillins Sulfa (Sulfonamide Antibiotics) adhesive tape PCN (penicillin) SULFA (sulfonamide) morphine latex SULFA ciprofloxacin Vital Signs Time BP (mmHg) HR (bpm) O2 Sat. RR (bpm) LOC 05:45 PM / % 5 = Fully awake and oriented or at pre-proc level 05:45 PM / % 5 = Fully awake and oriented or at pre-proc level 06:00 PM / % 4 = Oriented but drowsy 05:47 PM 160 / 99 72 92 % 20 05:52 PM 123 / 83 70 85 % 31 05:57 PM 132 / 72 47 86 % 13 06:02 PM 167 / 75 68 89 % 15 06:08 PM 170 / 64 80 92 % 15 06:12 PM 159 / 90 71 91 % 17 06:17 PM 160 / 76 62 92 % 17 Procedural Medications Time Medication Dose Units Method Given By 05:45 PM Oxygen 2 L/min nasal cannula Omaira Quispe RN 05:47 PM Versed 1 mg Intravenous Omaira Quispe RN 05:47 PM Fentanyl 50 mcg Intravenous Omaira Quispe RN 05:58 PM Lidocaine 2% 18 ml Subcutaneous Ifrah Dean MD 06:07 PM Heparin 1000 units Intravenous Omaira Quispe RN ASA Classification: CLASS II- Mild systemic disease (i.e. well-controlled diabetes, hypertension, asthma, cigarette smoking) Bebe Score Preprocedure Postprocedure Activity 2- Moves 4 extremities sustained head lift Activity 2- Moves 4 extremities sustained head lift Circulation 2- SBP +/= 20 points of pre-anesthetic level Circulation 2- SBP +/= 20 points of pre-anesthetic level Consciousness 2- Awake and alert oriented x 3 Consciousness 2- Awake and alert oriented x 3 O2 Saturation 2- Able to maintain O2 satruation of 92% on room air O2 Saturation 2- Able to maintain O2 satruation of 92% on room air Respiratory 2- Able to deep breathe and cough well Respiratory 2- Able to deep breathe and cough well Total Score 10 Total Score 10 Contrast Agent: Isovue Diagnostic Contrast: 80 ml Total Contrast: 80 ml Fluoro Dose: 30 mGy Procedure Log Time Note Enter By 05:43 PM 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 cedwards 05:44 PM Physician arrived 17:44 cedwards 05:44 PM ASA Class CLASS II- Mild systemic disease (i.e. well-controlled diabetes, hypertension, asthma, cigarette smoking) cedwards 05:44 PM Brody completed cedwards 05:44 PM Sign in performed according to hospital policy. Informed consent was obtained. cedwards 05:44 PM Procedure start 17:44 cedwards 05:45 PM Hair removed from procedure site in procedure lab using clippers. Bilateral groin prepped with Chloraprep by Omaira Quispe RN, then patient was draped. Skin intact. cedwards 05:45 PM Time: 17:45 Patient comfortable and pain free: Yes cedwards 05:45 PM Time: 17:45LOC: 5 = Fully awake and oriented or at pre-proc level cedwards 05:45 PM Time: 17:45 Oxygen on at 2 L/min per nasal cannula by mOaira Quispe RN cedwards 05:45 PM CathStat 05:46 PM Recorded ECG: HR=69 Condition=Condition 1 05:46 PM Vitals capture started with the following parameters, Patient=Adult, Interval=5 min, Initial Nryzzsiw=775 mmHg, Deflation Rate=5 mmHg, Cuff placed on Left Arm 05:47 PM HR=72 bpm, UTTG=802/99 mmhg, SpO2=92.0 %, Resp=20 B/min 05:47 PM Time: 17:47 Versed 1 mg Intravenous Given by Omaira Quispe RN cedwards 05:47 PM Time: 17:47 Fentanyl 50 mcg Intravenous Given by Omaira Quispe RN cedwards 05:52 PM HR=70 bpm, PXOP=837/83 mmhg, SpO2=85.0 %, Resp=31 B/min, EtCO2=20 mmHg, Comment=NSR 05:57 PM HR=47 bpm, JYYO=837/72 mmhg, SpO2=86.0 %, Resp=13 B/min, EtCO2=35 mmHg, Comment=NSR 05:59 PM Time: 17:58 18 ml Lidocaine 2% to right groin Subcutaneous Given by Ifrah Dean MD cedwards 05:59 PM Micro-Introducer Kit utilized for sheath placement cedwards 06:00 PM Time: 17:45LOC: 5 = Fully awake and oriented or at pre-proc level cedwards 06:00 PM Time: 17:45 Patient comfortable and pain free: Yes cedwards 06:01 PM Access obtained by percutaneous puncture. 5Fr 10cm Terumo Vinton sheath placed in right Femoral artery. [id number] cedwards 06:01 PM 0.035 145cm Navilyst 3mmJ wire [id number] cedwards 06:01 PM 5Fr FR 4 catheter inserted over the wire DN cedwards 06:02 PM Recorded Pressure: Ao, HR=71, Condition=Condition 1 (Aorta) Ao 177/71/116 06:02 PM RCA angiography performed in multiple views. cedwards 06:02 PM HR=68 bpm, ZRAC=607/75 mmhg, SpO2=89.0 %, Resp=15 B/min, Comment=NSR 06:03 PM Catheter removed cedwards 06:03 PM 5Fr FL 4 catheter inserted over the wire [facility] cedwards 06:04 PM LCA angiography performed in multiple views. cedwards 06:05 PM Recorded Pressure: Ao, HR=72, Condition=Condition 1 (Aorta) Ao 155/72/109 06:07 PM Time: 18:07 Heparin 1000 units Intravenous Given by Omaira Quispe RN cedwards 06:08 PM HR=80 bpm, SSGA=680/64 mmhg, SpO2=92.0 %, Resp=15 B/min, Comment=NSR 06:09 PM Catheter removed cedwards 06:10 PM Procedure completed at 18:10 01/31/2019 cedwards 06:10 PM Did you address STERLING flow and Dominance? YesCoronary Dominance: right cedwards 06:10 PM Coronary Dominance: right cedwards 06:11 PM Sign out completed: Radiation Dose 232.22 mGy, 29.7 Gy/cm2 Fluoro Time: 2.2 Isovue 370 - 200ml contrast 79.8 ml given by Ifrah Dean MD. Complications: None. The patient was discharged out of the cath lab manager in stable condition. Sedation minutes 23. Cardiac Rehab Consult needed: No. Confirmed administered medications: Yes cedwards 06:12 PM HR=71 bpm, LYXK=763/90 mmhg, SpO2=91.0 %, Resp=17 B/min 06:12 PM Arterial sheath pulled, Mynx closure device used and was Successful [id number] S/N. cedwards 06:12 PM Estimated Blood Loss: minimal cedwards 06:12 PM Post ECG NSR cedwards 06:12 PM Post Blood Pressure 159/90 cedwards 06:13 PM Information taught Cardiac Cath and Mynx cedwards 06:13 PM Education needs Procedure, Plan of Care, and Disease Process cedwards 06:13 PM Learning barriers :None cedwards 06:13 PM Education Methods Verbal cedwards 06:13 PM Education evaluation Able to repeat information cedwards 06:13 PM Site status No bleeding/hematoma - Rt Groin as reported by Tone Dean MD at 18:13 cedwards 06:13 PM Opsite applied cedwards 06:13 PM Plavix, Effient or Brilinta given No cedwards 06:13 PM Family placed in consult room. cedwards 06:13 PM Complications: None cedwards 06:13 PM 18:23 Post Pulses Bilateral DP & PT 1+ cedwards 06:15 PM Time: 18:00 Patient comfortable and pain free: Yes cedwards 06:15 PM Time: 18:00LOC: 4 = Oriented but drowsy cedwards 06:17 PM HR=62 bpm, GVSH=333/76 mmhg, SpO2=92.0 %, Resp=17 B/min 06:17 PM Report given to Fiordaliza CACERES Pt taken to Room #13. 18:17 cedwards 06:18 PM Lesion found in Proximal LAD. Pre Stenosis: 40 Pre STERLING Flow: cedwards 06:25 PM Patient out of room: 18:25 cedwards Complications Complication None None Hemodynamics Pressures Site Systolic/A Wave Diastolic/V Wave Mean AO 177 71 116 AO 155 72 109 Post Procedure Information Blood Pressure: 159/90 mmHg Rhythm: NSR Post procedural instructions were given Closure Device Time Device Success/Fail 01/31/2019 6:18:00 PM MynxGrip Successful Site Checks Time Location Status Staff Sheath In? Note 06:13 PM Rt Groin No bleeding/hematoma Tone Dean MD Pulses Time Site Pre-Procedure Post-Procedure Note Bilateral DP & PT 1+ Bilateral DP & PT 1+ 6:23:00 PM Bilateral DP & PT 1+ Updated by Robbin Bartholomew RN on 01/31/2019 6:26:08 PM electronically signed on 01/31/2019 6:27:03 PM with status of Final
[2019-01-31] MEDS: cefTRIAXone 2,000 MG in Water for inj. (sterile) 20 ML 20 ML IVPB SCH (22:15)
[2019-01-31] MEDS ORDERED: Insulin LISPRO 300 UNITS/3 ML VIAL SQ SCH (23:45)
[2019-01-31] MEDS: Acetaminophen 325 MG TABLET PO PRN (23:46)
[2019-02-01 02:51] LABS: Hematocrit 32.8 % (35.3-44.9); Hemoglobin 10.4 g/dL (11.5-15.4); Mean Corpuscular HGB Conc 31.7 g/dL (31.6-35.5); Mean Corpuscular Hemoglobin 32.6 pg (28.0-33.3); Mean Corpuscular Volume 102.8 fL (83.0-100.0); Mean Platelet Volume 9.6 fL (9.4-12.4); Platelet Count 237 K/mcL (140-400); Red Blood Count 3.19 M/mcL (3.82-4.97); Red Cell Distribution Width 13.6 % (11.5-14.5); White Blood Count 12.8 K/mcL (4.3-11.1)
[2019-02-01 03:05] LABS: Calcium 9.5 mg/dL (8.6-10.3); Magnesium 1.8 mg/dL (1.6-2.6); Potassium 4.3 mEq/L (3.5-5.1)
[2019-02-01] MEDS: *HR* Heparin 5,000 UNIT/ML VIAL SQ SCH (05:27)
[2019-02-01 07:08] VITALS: BP 182/75
[2019-02-01] MEDS: Budesonide/Formoterol 80/4.5 MDI IH SCH (07:10)
[2019-02-01] MEDS ORDERED: Insulin LISPRO 300 UNITS/3 ML VIAL SQ SCH (07:30)
[2019-02-01] MEDS: Isosorbide MONOnitrate (24 HR) 60 MG TAB.ER.24H PO SCH (08:04)
[2019-02-01] MEDS: Gabapentin 300 MG CAPSULE PO SCH (08:05)
[2019-02-01] MEDS: Cholecalciferol (D-3) 1,000 UNIT TABLET PO SCH (08:05)
[2019-02-01] MEDS: Artificial Tears SOLN 15 ML BOTTLE BOTH EYES SCH (08:05)
[2019-02-01] MEDS: Aspirin Enteric Coated 81 MG Tablet PO SCH (08:05)
--- NOTE | 2019-02-01 08:09 | Event Note ---
Date of Encounter: 02/01/19 Time of Encounter: 08:07 - Cardiology Event Note LHC yesterday revealed Mild atherosclerotic CAD. 40% ostial LAD lesion. No intervention warranted. Continue ASA, Statin, BB, nitrates. Recommend considering work-up for non cardiac causes of chest pain. No events on telemetry. Renal function stable. Cardiology signing off. Reconsult PRN. Will coordinate outpt follow-up in 3-4 weeks.
[2019-02-01] MEDS ORDERED: predniSONE 20 MG TABLET PO SCH (09:00)
--- NOTE | 2019-02-01 10:27 | Electrocardiograph Report ---
[place] [id number] Test Date: 2019-02-01 Pat Name: Nathalie Beck Department: 113 Room: 3B13 Gender: F Coater Smoking Pipe: : 1935 Requested By: Abhijit Martinez Order Number: [id number] Reading MD: Leida Scott Measurements Intervals [place] Rate: 59 P: VT: 0 QRS: 83 QRSD: 101 T: 101 QT: 468 QTc: 467 Interpretive Statements SINUS RHYTHM WITH VENTRICULAR PREMATURE COMPLEXES Electronically Signed On 02-01-2019 10:25:36 EDT by Leida Scott
--- NOTE | 2019-02-01 10:44 | Discharge Summary ---
- NOTES TO OUTPATIENT PROVIDER Notes to Outpatient Provider: noncardiac chest pain Date of Encounter: 02/01/19 Time of Encounter: 10:42 Hospital course: Dear Doctors, I recently had the opportunity to care for this patient during their recent hospital stay at [facility]. Nathalie Beck is an 83 F w hx HTN, COPD, DM2, CAD s/p RCA stent, who presented at the time of admission with chest pain and lower extremity weakness. Patient stated that she had progressive lower extremity weakness which got worse throughout the day to the point where she had difficulty getting up and moving around. She reports chronic low back pain that is unchanged and she has a spinal stimulator in place without any LE pain, bowel or bladder dysfunction, or numbness. She reports intermittent chest pain throughout the day that she describes as a pressure in the center of her chest which does not radiate and there is no associated shortness of breath, nausea, vomiting, or diaphoresis. Recent workup for chest pain had normal TTE and nuclear stress test. However, in the ED, pt had minimally elevated troponin of 0.05 with persistent chest pain. Admitted for cardio eval. In the hospital, patient's symptoms resolved. She taken for left heart cath which showed mild single vessel CAD (pLAD 40%, patent RCA stent, other coronaries angiographically free of disease). The patient was reassured by this. She will be discharged to follow up with her PCP. Dx: noncardiac chest pain Pertinent tests/consults: Cardio consultation, [facility] showing mild single vessel CAD (pLAD 40%) Follow up: PCP 1 week, Cardio 3-4 weeks Tests pending: none Med changes: - stop Plavix as no recent stenting Mental status: awake, fully oriented Code status: DNRCC-A It has been my pleasure participating in this patient's care. Please contact me with any questions or concerns regarding their hospital stay. Sincerely, Carlos Stein MD - Discharge Medications Prescriptions: New Isosorbide MONOnitrate (24 HR) [Imdur] 60 mg PO DAILY #30 tab.er.24h Continued Gabapentin [Neurontin] 300 mg PO TID Memantine HCl [Namenda Xr] 28 mg PO DAILY Atorvastatin [Lipitor] 10 mg PO HS Linagliptin [Tradjenta] 5 mg PO DAILY Cholecalciferol (Vitamin D3) [Vitamin D3] 1,000 unit PO DAILY Aspirin [Adult Aspirin Regimen] 81 mg PO DAILY Budesonide/Formoterol 80/4.5 [Symbicort 80/4.5] 2 puff IH BID Diclofenac Sodium [Voltaren] 1 - 2 gm TP QID PRN PRN Reason: Pain Levothyroxine Sodium [Levo-T] 112 mcg PO QAM Lisinopril [Zestril] 5 mg PO DAILY Vit C/Vit E/Lutein/Min/Rayle-3 [Ocuvite Softgel] 1 cap PO DAILY Nitroglycerin 0.4 mg SL Q5MPRN PRN #15 tab.subl PRN Reason: Chest Pain Metoprolol [Lopressor] 25 mg PO BID #60 tablet Magic Mouthwash [Magic Mouthwash BLM] 5 ml PO DAILY PRN PRN Reason: Mouth Sore Pain Discontinued Clopidogrel [Plavix] 75 mg PO DAILY Rayle-3/Dha/Epa/Fish Oil [Fish Oil 1,000 mg Softgel] 1 cap PO DAILY Isosorbide MONOnitrate (24 HR) [Imdur] 60 mg PO DAILY Home Medications: Gabapentin [Neurontin] 300 mg PO TID 08/17/17 [History] Memantine HCl [Namenda Xr] 28 mg PO DAILY 08/17/17 [History] Atorvastatin [Lipitor] 10 mg PO HS 08/18/17 [History] Linagliptin [Tradjenta] 5 mg PO DAILY 08/18/17 [History] Cholecalciferol (Vitamin D3) [Vitamin D3] 1,000 unit PO DAILY 01/23/19 [History] Aspirin [Adult Aspirin Regimen] 81 mg PO DAILY 01/25/19 [History] Budesonide/Formoterol 80/4.5 [Symbicort 80/4.5] 2 puff IH BID 01/25/19 [History] Diclofenac Sodium [Voltaren] 1 - 2 gm TP QID PRN 01/25/19 [History] Levothyroxine Sodium [Levo-T] 112 mcg PO QAM 01/25/19 [History] Lisinopril [Zestril] 5 mg PO DAILY 01/25/19 [History] Vit C/Vit E/Lutein/Min/Rayle-3 [Ocuvite Softgel] 1 cap PO DAILY 01/25/19 [History] Metoprolol [Lopressor] 25 mg PO BID #60 tablet 01/27/19 [Rx] Nitroglycerin 0.4 mg SL Q5MPRN PRN #15 tab.subl 01/27/19 [Rx] Magic Mouthwash [Magic Mouthwash BLM] 5 ml PO DAILY PRN 01/30/19 [History] Isosorbide MONOnitrate (24 HR) [Imdur] 60 mg PO DAILY #30 tab.er.24h 02/01/19 [Rx] Allergies/Adverse Reactions: Allergy/AdvReac Type Severity Reaction Status Date / Time ciprofloxacin [From Cipro] Allergy Difficulty Verified 01/30/19 14:59 Breathing morphine Allergy Difficulty Verified 01/30/19 14:48 Breathing Penicillins Allergy Difficulty Verified 01/30/19 14:59 Breathing Sulfa (Sulfonamide Allergy Difficulty Verified 01/30/19 14:59 Antibiotics) Breathing adhesive tape AdvReac Itching Verified 01/30/19 14:48 Date of admission: 01/30/19 11:26 Primary care physician: Fabian Cooper DO Consults: 01/29/19 02:27 Consult to Cardiology [CONS] Routine Comment: Consulting Provider: Cardiology [place] Reason for Consult: Chest pain, Elevated trop Call Completed: No 01/31/19 07:46 Consult to Nurse Navigator [CONS] Routine Comment: COPD 02/01/19 07:52 Consult to Occupational Therapy [CONS] Routine Comment: Evaluate, develop and implement POC Reason for Consult: WEAKNESS Does patient have active BEDREST order?: No Is patient medically & hemodynamically stable?: Yes Consult to Physical Therapy [CONS] Routine Comment: Evaluate, develop and implement POC Reason for Consult: WEAKNESS Does patient have active BEDREST order?: No Is patient medically & hemodynamically stable?: Yes - Constitutional Vitals: Temp Pulse Resp BP Pulse Ox 97.6 F 51 18 182/75 96 02/01/19 06:44 02/01/19 06:44 02/01/19 07:11 02/01/19 06:44 02/01/19 07:11 Exam: General: NAD, elderly and chronically ill appearing, pleasant Thoracic: mildly diminished but no wheezing or crackles Cardio: Normal S1 and S2, regular rate and rhythm, does have systolic murmur Abdomen: Soft, nontender Extremities: Warm, well perfused. DP pulses 2+ b/l. No edema. Skin: Intact. No rashes, bruises, or ulcers. R groin site without swelling or bruising. Neuro: Awake, fully oriented. Speech fluent. Tends to look to the right but will look left or straight spontaneously or with prompting - Patient Status Disposition: Home Health Service Condition: Fair Functional capacity at discharge: uses cane/walker Overall status at discharge: patient is back to baseline - Discharge Instructions Follow Up With: Fabian Cooper DO [Primary Care Provider] - 02/02/19 11:30 am () - Diet and Activity Activity: resume usual activities as tolerated Diet: diabetic diet
--- NOTE | 2019-02-01 11:16 | Physician Discharge Referral ---
Home Health/Hosp Referral Info Transfer to: Home Health Provider in Charge Post Discharge: PCP - Respiratory Orders Smoking Cessation: Smoking cessation has been advised. For more information, call the [place] Tobacco Quit Line at 4-493-LQDO-NOW. - Diet/Nutrition Diet/Nutrition Orders: No Concentrated Sweets - Activity Activity Orders: Up ad shauna, Ambulate - Services Needed Following services are medically necessary services: Nursing, Home Health Aide, Physical Therapy, Occupational Therapy - Transfer Medications Prescriptions: Isosorbide MONOnitrate (24 HR) [Imdur] 60 mg PO DAILY #30 tab.er.24h Home Medications: Gabapentin [Neurontin] 300 mg PO TID 08/17/17 [History] Memantine HCl [Namenda Xr] 28 mg PO DAILY 08/17/17 [History] Atorvastatin [Lipitor] 10 mg PO HS 08/18/17 [History] Linagliptin [Tradjenta] 5 mg PO DAILY 08/18/17 [History] Cholecalciferol (Vitamin D3) [Vitamin D3] 1,000 unit PO DAILY 01/23/19 [History] Aspirin [Adult Aspirin Regimen] 81 mg PO DAILY 01/25/19 [History] Budesonide/Formoterol 80/4.5 [Symbicort 80/4.5] 2 puff IH BID 01/25/19 [History] Diclofenac Sodium [Voltaren] 1 - 2 gm TP QID PRN 01/25/19 [History] Levothyroxine Sodium [Levo-T] 112 mcg PO QAM 01/25/19 [History] Lisinopril [Zestril] 5 mg PO DAILY 01/25/19 [History] Vit C/Vit E/Lutein/Min/[place]-3 [Ocuvite Softgel] 1 cap PO DAILY 01/25/19 [History] Metoprolol [Lopressor] 25 mg PO BID #60 tablet 01/27/19 [Rx] Nitroglycerin 0.4 mg SL Q5MPRN PRN #15 tab.subl 01/27/19 [Rx] Magic Mouthwash [Magic Mouthwash BLM] 5 ml PO DAILY PRN 01/30/19 [History] Isosorbide MONOnitrate (24 HR) [Imdur] 60 mg PO DAILY #30 tab.er.24h 02/01/19 [Rx] Allergies/Adverse Reactions: Allergy/AdvReac Type Severity Reaction Status Date / Time ciprofloxacin [From Cipro] Allergy Difficulty Verified 01/30/19 14:59 Breathing morphine Allergy Difficulty Verified 01/30/19 14:48 Breathing Penicillins Allergy Difficulty Verified 01/30/19 14:59 Breathing Sulfa (Sulfonamide Allergy Difficulty Verified 01/30/19 14:59 Antibiotics) Breathing adhesive tape AdvReac Itching Verified 01/30/19 14:48 Certification: Further, I certify that my clinical findings support that this patient is homebound (i.e. absences from home require considerable and taxing effort and are for medical reasons or islam services or infrequently or short duration when for other reasons) because: Homebound Reason: Leaving home requires considerable and taxing effort due to condition Attestation: My signature below is to certify that this patient is under my care and that I, or nurse practitioner, or a physician's warehouse administrative assistant working with me, has a [id number] encounter with this patient.
--- NOTE | 2019-02-01 11:23 | Electrocardiograph Report ---
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
--- NOTE | 2019-02-01 17:27 | Electrocardiograph Report ---
[place] [id number] Test Date: 2019-01-29 Pat Name: Nathalie Beck Department: 113 Room: 3B13 Gender: F Multimedia Developer: : 1935 Requested By: Trudi Coyle Order Number: [id number] Reading MD: Judy Burns Measurements Intervals [place] Rate: 64 P: [place]: 0 QRS: 41 QRSD: 106 T: 53 QT: 442 QTc: 452 Interpretive Statements SINUS RHYTHM WITH VENTRICULAR PREMATURE COMPLEXES Electronically Signed On 02-01-2019 17:25:46 EDT by Judy Burns
== END 2019-02-01 17:04 | disposition home health service (06) | DRG 287 ==
LOC: EMEROOARM 19:15 → 3BNU 19:15 → SUATTDRO 01-30 11:26
PROVIDERS: ADMIT Internal Medicine; ATTEND Internal Medicine

== ENCOUNTER 2019-03-25 16:49 | Inpatient (IN) ==
[2019-03-25 17:42] LABS: Basophils % 0.8 %; Eosinophils # 0.2 K/mcL (0.0-0.6); Eosinophils % 4.6 %; Hematocrit 35.2 % (35.3-44.9); Hemoglobin 11.1 g/dL (11.5-15.4); Immature Granulocytes % 0.2 % (0-4); Lymphocytes # 1.4 K/mcL (0.6-4.6); Lymphocytes % 26.3 %; Mean Corpuscular HGB Conc 31.5 g/dL (31.6-35.5); Mean Corpuscular Hemoglobin 31.9 pg (28.0-33.3); Mean Corpuscular Volume 101.1 fL (83.0-100.0); Mean Platelet Volume 9.5 fL (9.4-12.4); Monocytes # 0.7 K/mcL (0.0-1.3); Monocytes % 13.9 %; Neutrophils # 2.8 K/mcL (1.6-8.9); Platelet Count 203 K/mcL (140-400); Red Blood Count 3.48 M/mcL (3.82-4.97); Red Cell Distribution Width 13.7 % (11.5-14.5); Segmented Neutrophils % 54.2 %; White Blood Count 5.2 K/mcL (4.3-11.1)
[2019-03-25 18:03] LABS: Calcium 9.5 mg/dL (8.6-10.3); Magnesium 1.7 mg/dL (1.6-2.6); Potassium 3.9 mEq/L (3.5-5.1)
[2019-03-25 18:04] LABS: Troponin I 0.03 ng/mL (< 0.04)
[2019-03-25 18:17] LABS: Thyroid Stimulating Hormone 0.922 mcIU/mL (0.340-5.600)
[2019-03-25] MEDS ORDERED: Furosemide 40 MG/4 ML VIAL IVP ONE (18:48)
[2019-03-25] MEDS ORDERED: Naloxone 0.4 MG/ML INJ IVP PRN (21:54)
[2019-03-26] MEDS ORDERED: *HR* Dextrose 50 % in Water (Syg) 50 ML SYRINGE IVP PRN (01:02)
[2019-03-26] MEDS ORDERED: D5% in Water 1,000 ML IVC PRN (01:02)
[2019-03-26] MEDS ORDERED: Dextrose Gel 15 GM/37.5 ML TUBE PO PRN ×2 (01:02)
[2019-03-26] MEDS: *HR* Heparin 5,000 UNIT/ML VIAL SQ SCH ×2 (05:27→18:00)
[2019-03-26] MEDS: Insulin LISPRO 300 UNITS/3 ML VIAL SQ SCH ×4 (05:32→20:21)
[2019-03-26] MEDS ORDERED: Gabapentin 300 MG CAPSULE PO SCH (06:00)
[2019-03-26] MEDS: Gabapentin 300 MG CAPSULE PO SCH ×3 (06:06→19:27)
[2019-03-26 06:43] LABS: Hematocrit 37.3 % (35.3-44.9); Mean Corpuscular HGB Conc 32.2 g/dL (31.6-35.5); Mean Corpuscular Hemoglobin 31.5 pg (28.0-33.3); Mean Corpuscular Volume 97.9 fL (83.0-100.0); Mean Platelet Volume 9.4 fL (9.4-12.4); Platelet Count 217 K/mcL (140-400); Red Blood Count 3.81 M/mcL (3.82-4.97); Red Cell Distribution Width 13.6 % (11.5-14.5); White Blood Count 6.3 K/mcL (4.3-11.1)
[2019-03-26 07:15] LABS: Calcium 10.1 mg/dL (8.6-10.3); Potassium 3.8 mEq/L (3.5-5.1); Troponin I 0.04 ng/mL (< 0.04)
[2019-03-26] MEDS ORDERED: Nitroglycerin 0.4 MG TAB.SUBL SL PRN (07:54)
[2019-03-26] MEDS ORDERED: Furosemide 40 MG/4 ML VIAL IVP SCH (09:00)
[2019-03-26] MEDS ORDERED: Perflutren Lipid Microsphere 1.3 ML in 0.9 % Sodium Chloride 8.7 ML IVP ONE (10:19)
[2019-03-26] MEDS: Budesonide/Formoterol 80/4.5 1 PUFF INH IH SCH ×2 (10:26→22:21)
[2019-03-26] MEDS: Cholecalciferol (D-3) 1,000 UNIT (25MCG) TABLET PO SCH (10:28)
[2019-03-26] MEDS: Isosorbide MONOnitrate (24 HR) 60 MG TAB.ER.24H PO SCH (10:28)
[2019-03-26] MEDS: Multivit/Ca/Min/Fe/FA 1 TAB TABLET PO SCH (10:28)
[2019-03-26] MEDS: Aspirin Enteric Coated 81 MG Tablet PO SCH (19:27)
[2019-03-26] MEDS ORDERED: NON-FORMULARY MEDICATION 1 EACH EACH (Omega-3/Dha/Epa/Fish Oil [Fish Oil 1,000 Mg Softgel] PO SCH (21:00)
[2019-03-27] MEDS: *HR* Heparin 5,000 UNIT/ML VIAL SQ SCH ×2 (05:26→17:15)
[2019-03-27] MEDS: Budesonide/Formoterol 80/4.5 1 PUFF INH IH SCH ×2 (07:44→20:28)
[2019-03-27] MEDS: Insulin LISPRO 300 UNITS/3 ML VIAL SQ SCH ×4 (08:17→20:22)
[2019-03-27] MEDS: Gabapentin 300 MG CAPSULE PO SCH ×3 (08:24→19:39)
[2019-03-27] MEDS: Multivit/Ca/Min/Fe/FA 1 TAB TABLET PO SCH (08:24)
[2019-03-27] MEDS: Cholecalciferol (D-3) 1,000 UNIT (25MCG) TABLET PO SCH (08:24)
[2019-03-27] MEDS: Isosorbide MONOnitrate (24 HR) 60 MG TAB.ER.24H PO SCH (08:24)
[2019-03-27 10:37] LABS: Calcium 10.1 mg/dL (8.6-10.3); Potassium 4.2 mEq/L (3.5-5.1)
[2019-03-27] MEDS ORDERED: Doxycycline 100 MG in 0.9 % Sodium Chloride Mini Bag 100 ML IVPB SCH (11:50)
[2019-03-27] MEDS: Doxycycline 100 MG CAPSULE PO SCH ×2 (12:11→19:38)
[2019-03-27] MEDS: Cefdinir 300 MG CAPSULE PO SCH (12:12)
[2019-03-27] MEDS: Aspirin Enteric Coated 81 MG Tablet PO SCH (19:39)
[2019-03-28] MEDS: *HR* Heparin 5,000 UNIT/ML VIAL SQ SCH ×2 (05:43→18:41)
[2019-03-28] MEDS: Budesonide/Formoterol 80/4.5 1 PUFF INH IH SCH ×2 (07:40→20:17)
[2019-03-28 08:18] LABS: Calcium 10.3 mg/dL (8.6-10.3); Potassium 4.2 mEq/L (3.5-5.1)
[2019-03-28] MEDS: Gabapentin 300 MG CAPSULE PO SCH ×3 (08:24→22:04)
[2019-03-28] MEDS: Isosorbide MONOnitrate (24 HR) 60 MG TAB.ER.24H PO SCH (08:25)
[2019-03-28] MEDS: Doxycycline 100 MG CAPSULE PO SCH (08:25)
[2019-03-28] MEDS: Cefdinir 300 MG CAPSULE PO SCH (08:25)
[2019-03-28] MEDS: Insulin LISPRO 300 UNITS/3 ML VIAL SQ SCH ×4 (08:25→22:03)
[2019-03-28] MEDS: Multivit/Ca/Min/Fe/FA 1 TAB TABLET PO SCH (08:25)
[2019-03-28] MEDS: Cholecalciferol (D-3) 1,000 UNIT (25MCG) TABLET PO SCH (08:25)
[2019-03-28 11:19] LABS: Estimated Average Glucose 140 mg/dl
[2019-03-28] MEDS: Aspirin Enteric Coated 81 MG Tablet PO SCH (22:03)
[2019-03-29] MEDS ORDERED: Acetaminophen 325 MG TABLET PO PRN (03:53)
[2019-03-29] MEDS: *HR* Heparin 5,000 UNIT/ML VIAL SQ SCH ×2 (06:07→18:15)
[2019-03-29 06:26] LABS: Calcium 10.3 mg/dL (8.6-10.3); Potassium 4.2 mEq/L (3.5-5.1)
[2019-03-29] MEDS: Budesonide/Formoterol 80/4.5 1 PUFF INH IH SCH ×2 (07:37→21:45)
[2019-03-29] MEDS: Isosorbide MONOnitrate (24 HR) 60 MG TAB.ER.24H PO SCH (08:49)
[2019-03-29] MEDS: Multivit/Ca/Min/Fe/FA 1 TAB TABLET PO SCH (08:49)
[2019-03-29] MEDS: Insulin LISPRO 300 UNITS/3 ML VIAL SQ SCH ×4 (08:49→22:08)
[2019-03-29] MEDS: Cholecalciferol (D-3) 1,000 UNIT (25MCG) TABLET PO SCH (08:49)
[2019-03-29] MEDS: Gabapentin 300 MG CAPSULE PO SCH ×3 (08:49→22:07)
[2019-03-29] MEDS: Cefdinir 300 MG CAPSULE PO SCH (08:49)
[2019-03-29] MEDS: metroNIDAZOLE 500 MG TABLET PO SCH ×2 (16:36→22:08)
[2019-03-29] MEDS: Aspirin Enteric Coated 81 MG Tablet PO SCH (22:08)
[2019-03-30] MEDS: *HR* Heparin 5,000 UNIT/ML VIAL SQ SCH ×2 (05:30→17:19)
[2019-03-30 06:11] LABS: Calcium 10.1 mg/dL (8.6-10.3); Potassium 4.6 mEq/L (3.5-5.1)
[2019-03-30] MEDS: Budesonide/Formoterol 80/4.5 1 PUFF INH IH SCH ×2 (07:48→19:48)
[2019-03-30] MEDS: Insulin LISPRO 300 UNITS/3 ML VIAL SQ SCH ×4 (09:17→21:55)
[2019-03-30] MEDS: Gabapentin 300 MG CAPSULE PO SCH ×3 (09:22→21:57)
[2019-03-30] MEDS: Multivit/Ca/Min/Fe/FA 1 TAB TABLET PO SCH (09:22)
[2019-03-30] MEDS: Cholecalciferol (D-3) 1,000 UNIT (25MCG) TABLET PO SCH (09:22)
[2019-03-30] MEDS: Cefdinir 300 MG CAPSULE PO SCH (09:23)
[2019-03-30] MEDS: Aspirin Enteric Coated 81 MG Tablet PO SCH (21:57)
[2019-03-31] MEDS: *HR* Heparin 5,000 UNIT/ML VIAL SQ SCH (05:27)
[2019-03-31 07:27] VITALS: BP 160/68
[2019-03-31] MEDS: Budesonide/Formoterol 80/4.5 1 PUFF INH IH SCH (07:35)
[2019-03-31] MEDS: Insulin LISPRO 300 UNITS/3 ML VIAL SQ SCH (07:42)
[2019-03-31] MEDS: Multivit/Ca/Min/Fe/FA 1 TAB TABLET PO SCH (10:06)
[2019-03-31] MEDS: Cefdinir 300 MG CAPSULE PO SCH (10:06)
[2019-03-31] MEDS: Gabapentin 300 MG CAPSULE PO SCH (10:07)
[2019-03-31] MEDS: Cholecalciferol (D-3) 1,000 UNIT (25MCG) TABLET PO SCH (10:07)
== END 2019-03-31 13:57 | DRG 291 ==
LOC: 2NENU 16:49 → EMEROOARM 16:49 → 2NENU 22:02
PROVIDERS: ADMIT Family Medicine; ATTEND Internal Medicine

== ENCOUNTER 2020-04-24 07:45 | Inpatient (IN) ==
[2020-04-23] MEDS: Budesonide/Formoterol 80/4.5 1 PUFF INH IH SCH ×2 (11:07→20:04)
[2020-04-23] MEDS: Nitroglycerin 0.4 MG TAB.SUBL SL SCH ×3 (11:52→17:10)
[2020-04-23] MEDS: lisinopriL 10 MG TABLET PO SCH (11:52)
[2020-04-23] MEDS: Furosemide 20 MG TABLET PO SCH (11:52)
[2020-04-23] MEDS: Gabapentin 300 MG CAPSULE PO SCH ×3 (11:52→21:54)
[2020-04-23] MEDS: *HR* Metoprolol 5 MG/5 ML VIAL IVP SCH (20:28)
[~2020-04-24 07:45] MED LIST: Nitroglycerin 0.4 MG TAB.SUBL SL PRN
[2020-04-24] MEDS: Budesonide/Formoterol 80/4.5 1 PUFF INH IH SCH ×2 (08:13→21:29)
[2020-04-24] MEDS: Gabapentin 300 MG CAPSULE PO SCH ×3 (08:56→21:55)
[2020-04-24] MEDS: Furosemide 20 MG TABLET PO SCH (08:56)
[2020-04-24] MEDS: lisinopriL 10 MG TABLET PO SCH (08:57)
[2020-04-24] MEDS ORDERED: 0.9 % Sodium Chloride 1,000 ML IVC SCH (11:30)
[2020-04-24] MEDS: Pantoprazole 40 MG VIAL IVP SCH (11:50)
[2020-04-24] MEDS: *HR* Metoprolol 5 MG/5 ML VIAL IVP SCH (21:56)
[2020-04-25] MEDS: Furosemide 20 MG TABLET PO SCH (07:29)
[2020-04-25] MEDS: Pantoprazole 40 MG VIAL IVP SCH (07:29)
[2020-04-25] MEDS: lisinopriL 10 MG TABLET PO SCH (07:29)
[2020-04-25] MEDS: Gabapentin 300 MG CAPSULE PO SCH (07:29)
[2020-04-25] MEDS: Budesonide/Formoterol 80/4.5 1 PUFF INH IH SCH (07:49)
[2020-04-25] MEDS ORDERED: Lidocaine -MPF 2% 2 ML VIAL ONE (09:16)
[2020-04-25 11:06] VITALS: BP 171/69
== END 2020-04-25 11:37 | disposition home or self-care (01) | DRG 392 ==
LOC: 3ANU → EDSTATUS 07:45
PROVIDERS: ADMIT Surgery; ATTEND Surgery

== ENCOUNTER 2020-05-07 11:58 | Inpatient (IN) ==
[2020-05-07 15:20] LABS: Hematocrit 22.2 % (35.3-44.9); Hemoglobin 6.9 g/dL (11.5-15.4)
[2020-05-07] MEDS ORDERED: SODIUM CHLORIDE/NAHCO3/KCL/PEG 4,000 ML SOLN.RECON PO ONE (17:00)
[2020-05-07] MEDS ORDERED: Naloxone 0.4 MG/ML INJ IVP PRN (17:27)
[2020-05-07] MEDS ORDERED: *HR* HYDROcodone/Acet 5/325 mg TABLET PO PRN (17:27)
[2020-05-07] MEDS ORDERED: Acetaminophen 325 MG TABLET PO PRN (17:27)
[2020-05-07] MEDS ORDERED: Budesonide/Formoterol 80/4.5 1 PUFF INH IH PRN (17:40)
[2020-05-07] MEDS ORDERED: Metoprolol XL (24 HR) Succ 25 MG TAB.ER.24H PO SCH (18:00)
[2020-05-07] MEDS ORDERED: 0.9 % Sodium Chloride 250 ML ONE (18:00)
[2020-05-07] MEDS: Cholecalciferol (D-3) 1,000 UNIT (25MCG) TABLET PO SCH (19:19)
[2020-05-07] MEDS: Gabapentin 300 MG CAPSULE PO SCH (20:11)
[2020-05-07] MEDS: Ringers Solution, Lactated 1,000 ML IVC SCH (20:11)
[2020-05-07] MEDS ORDERED: predniSONE 20 MG TABLET PO SCH (21:00)
[2020-05-07 21:44] LABS: Hematocrit 26.3 % (35.3-44.9); Hemoglobin 8.4 g/dL (11.5-15.4)
[2020-05-07] MEDS: Budesonide/Formoterol 80/4.5 1 PUFF INH IH SCH (22:27)
[2020-05-08 04:55] LABS: Basophils # 0.1 K/mcL (0.0-0.2); Basophils % 0.6 %; Eosinophils # 0.1 K/mcL (0.0-0.6); Eosinophils % 1.6 %; Hematocrit 23.7 % (35.3-44.9); Hemoglobin 7.6 g/dL (11.5-15.4); Immature Granulocytes % 0.7 % (0-4); Lymphocytes # 2.1 K/mcL (0.6-4.6); Lymphocytes % 25.5 %; Mean Corpuscular HGB Conc 32.1 g/dL (31.6-35.5); Mean Corpuscular Hemoglobin 31.8 pg (28.0-33.3); Mean Corpuscular Volume 99.2 fL (83.0-100.0); Mean Platelet Volume 8.9 fL (9.4-12.4); Monocytes # 0.8 K/mcL (0.0-1.3); Monocytes % 9.5 %; Platelet Count 169 K/mcL (140-400); Red Blood Count 2.39 M/mcL (3.82-4.97); Red Cell Distribution Width 13.3 % (11.5-14.5); Segmented Neutrophils % 62.1 %
[2020-05-08 04:59] LABS: INR 1.1; Prothrombin Time 12.2 Seconds (9.4-12.1)
[2020-05-08 05:02] LABS: Activated Partial Thrombo Time 22.9 Seconds (26.0-36.0)
[2020-05-08 05:16] LABS: Potassium 4.3 mEq/L (3.5-5.1)
[2020-05-08 05:29] LABS: Thyroid Stimulating Hormone 2.432 mcIU/mL (0.340-5.600)
[2020-05-08 05:39] LABS: Folate 16.1 ng/mL (3.0-16.0)
[2020-05-08] MEDS: Budesonide/Formoterol 80/4.5 1 PUFF INH IH SCH ×2 (07:44→20:13)
[2020-05-08] MEDS: lisinopriL 10 MG TABLET PO SCH (08:28)
[2020-05-08] MEDS: Insulin LISPRO 300 UNITS/3 ML VIAL SQ SCH ×3 (08:28→16:41)
[2020-05-08] MEDS: Gabapentin 300 MG CAPSULE PO SCH ×3 (08:28→21:37)
[2020-05-08] MEDS: Multivit/Ca/Min/Fe/FA 1 TAB TABLET PO SCH (08:28)
[2020-05-08] MEDS: Ringers Solution, Lactated 1,000 ML IVC SCH (15:45)
[2020-05-09 05:15] LABS: Hematocrit 22.8 % (35.3-44.9); Hemoglobin 7.5 g/dL (11.5-15.4); Mean Corpuscular HGB Conc 32.9 g/dL (31.6-35.5); Mean Corpuscular Hemoglobin 33.9 pg (28.0-33.3); Mean Corpuscular Volume 103.2 fL (83.0-100.0); Mean Platelet Volume 9.3 fL (9.4-12.4); Platelet Count 149 K/mcL (140-400); Red Blood Count 2.21 M/mcL (3.82-4.97); Red Cell Distribution Width 13.4 % (11.5-14.5); White Blood Count 6.8 K/mcL (4.3-11.1)
[2020-05-09 05:32] LABS: Calcium 8.7 mg/dL (8.6-10.3); Potassium 4.2 mEq/L (3.5-5.1)
[2020-05-09] MEDS: Budesonide/Formoterol 80/4.5 1 PUFF INH IH SCH ×2 (07:50→20:19)
[2020-05-09] MEDS: Cholecalciferol (D-3) 1,000 UNIT (25MCG) TABLET PO SCH (08:00)
[2020-05-09] MEDS: Gabapentin 300 MG CAPSULE PO SCH ×3 (08:00→20:12)
[2020-05-09] MEDS: Insulin LISPRO 300 UNITS/3 ML VIAL SQ SCH ×3 (08:00→17:25)
[2020-05-09] MEDS: lisinopriL 10 MG TABLET PO SCH (08:00)
[2020-05-09] MEDS: Multivit/Ca/Min/Fe/FA 1 TAB TABLET PO SCH (08:00)
[2020-05-09] MEDS ORDERED: Lidocaine -MPF 2% 2 ML VIAL ONE (10:47)
[2020-05-10 03:43] LABS: Basophils % 0.6 %; Eosinophils # 0.2 K/mcL (0.0-0.6); Eosinophils % 3.5 %; Immature Granulocytes % 0.4 % (0-4); Lymphocytes # 1.4 K/mcL (0.6-4.6); Lymphocytes % 19.8 %; Mean Corpuscular HGB Conc 31.8 g/dL (31.6-35.5); Mean Corpuscular Hemoglobin 32.6 pg (28.0-33.3); Mean Corpuscular Volume 102.3 fL (83.0-100.0); Mean Platelet Volume 9.2 fL (9.4-12.4); Monocytes # 0.7 K/mcL (0.0-1.3); Monocytes % 10.4 %; Neutrophils # 4.5 K/mcL (1.6-8.9); Nucleated Red Blood Cells 0.7 /100 WBC (0); Platelet Count 159 K/mcL (140-400); Red Blood Count 2.15 M/mcL (3.82-4.97); Red Cell Distribution Width 13.3 % (11.5-14.5); Segmented Neutrophils % 65.3 %; White Blood Count 6.9 K/mcL (4.3-11.1)
[2020-05-10 03:57] LABS: Calcium 8.8 mg/dL (8.6-10.3); Magnesium 1.7 mg/dL (1.6-2.6); Phosphorous 2.9 mg/dL (2.7-4.5); Potassium 4.3 mEq/L (3.5-5.1)
[2020-05-10] MEDS: Ringers Solution, Lactated 1,000 ML IVC SCH (07:19)
[2020-05-10] MEDS: Budesonide/Formoterol 80/4.5 1 PUFF INH IH SCH (07:53)
[2020-05-10] MEDS: Insulin LISPRO 300 UNITS/3 ML VIAL SQ SCH ×3 (08:41→17:00)
[2020-05-10] MEDS: Multivit/Ca/Min/Fe/FA 1 TAB TABLET PO SCH (08:54)
[2020-05-10] MEDS: lisinopriL 10 MG TABLET PO SCH (08:54)
[2020-05-10] MEDS: Gabapentin 300 MG CAPSULE PO SCH ×2 (08:54→17:00)
[2020-05-10] MEDS ORDERED: 0.9 % Sodium Chloride 250 ML ONE (12:42)
[2020-05-10 16:09] VITALS: BP 162/62
[2020-05-10 17:29] LABS: Basophils % 0.4 %; Eosinophils # 0.2 K/mcL (0.0-0.6); Eosinophils % 3.4 %; Hematocrit 27.6 % (35.3-44.9); Immature Granulocytes % 0.6 % (0-4); Lymphocytes # 1.4 K/mcL (0.6-4.6); Lymphocytes % 21.3 %; Mean Corpuscular HGB Conc 31.5 g/dL (31.6-35.5); Mean Corpuscular Volume 101.5 fL (83.0-100.0); Mean Platelet Volume 8.9 fL (9.4-12.4); Monocytes # 0.9 K/mcL (0.0-1.3); Monocytes % 12.7 %; Neutrophils # 4.2 K/mcL (1.6-8.9); Platelet Count 158 K/mcL (140-400); Red Blood Count 2.72 M/mcL (3.82-4.97); Segmented Neutrophils % 61.6 %; White Blood Count 6.8 K/mcL (4.3-11.1)
[2020-05-10 17:52] LABS: Hemoglobin 8.7 g/dL (11.5-15.4)
== END 2020-05-10 19:24 | disposition home or self-care (01) | DRG 378 ==
LOC: 3ANU → SUATTDRO 13:18
PROVIDERS: ADMIT Internal Medicine; ATTEND Internal Medicine

== ENCOUNTER 2022-03-12 17:23 | Inpatient (IN) ==
[2022-03-12 18:06] LABS: Hematocrit 40.2 % (35.3-44.9); Hemoglobin 12.7 g/dL (11.5-15.4); Mean Corpuscular HGB Conc 31.6 g/dL (31.6-35.5); Mean Corpuscular Hemoglobin 33.7 pg (28.0-33.3); Mean Corpuscular Volume 106.6 fL (83.0-100.0); Mean Platelet Volume 9.7 fL (9.4-12.4); Platelet Count 160 K/mcL (140-400); Red Blood Count 3.77 M/mcL (3.82-4.97)
[2022-03-12 18:28] LABS: Calcium 9.3 mg/dL (8.6-10.3); Potassium 4.7 mEq/L (3.5-5.1)
[2022-03-12 18:48] LABS: Troponin I 0.09 ng/mL (< 0.04)
[2022-03-12] MEDS ORDERED: Aspirin 325 MG TABLET PO ONE (20:06)
[2022-03-12 20:10] LABS: Bilirubin,Urine Negative (Negative); Blood,Urine Negative (Negative); Clarity,Urine Clear (Clear); Color,Urine Light-Yellow (Yellow); Glucose,Urine (UA) Normal (Normal); Ketones,Urine Negative (Negative); Leukocyte Esterase,Urine Small (Negative); Nitrite,Urine Negative (Negative); Protein,Urine 30 mg/dL (Neg-Trace); RBC,Urine 0-3 per hpf (0-3); Specific Gravity,Urine 1.016 (1.010-1.025); Squamous Epithelial Cell,Urine Few per hpf (None-Few); Urobilinogen,Urine Normal (Normal)
[2022-03-12] MEDS ORDERED: Naloxone 0.4 MG/ML INJ IVP PRN (20:22)
[2022-03-12] MEDS ORDERED: *HR* HYDROcodone/Acet 5/325 mg TABLET PO PRN (20:22)
[2022-03-12] MEDS ORDERED: Melatonin 3 MG TABLET PO PRN (20:22)
[2022-03-12] MEDS ORDERED: Ondansetron 4 MG/2 ML VIAL IVP PRN (20:22)
[2022-03-12] MEDS ORDERED: Perflutren Lipid Microsphere 1.3 ML in 0.9 % Sodium Chloride 8.7 ML IVP PRN (20:32)
[2022-03-12] MEDS ORDERED: *HR* Dextrose 50 % in Water (Syg) 50 ML SYRINGE IVP PRN (21:11)
[2022-03-12] MEDS ORDERED: Dextrose Gel 15 GM/37.5 ML TUBE PO PRN ×2 (21:11)
[2022-03-12] MEDS ORDERED: D5% in Water 1,000 ML IVC PRN (21:11)
[2022-03-12] MEDS ORDERED: Furosemide 20 MG/2 ML VIAL IVP ONE (22:45)
[2022-03-12] MEDS: Ipratropium/Albuterol Neb 3 ML IH SCH (23:01)
[2022-03-12 23:11] LABS: Estimated Average Glucose 143 mg/dl; Hemoglobin A1C 6.6 %
[2022-03-13] MEDS ORDERED: polyethylene glycoL 3350 17 GM POWD.PACK PO PRN (00:59)
[2022-03-13 03:28] LABS: INR 1.1; Prothrombin Time 12.3 Seconds (9.4-12.1)
[2022-03-13 03:29] LABS: Basophils # 0.1 K/mcL (0.0-0.2); Basophils % 1.1 %; Eosinophils # 0.3 K/mcL (0.0-0.6); Eosinophils % 4.8 %; Hematocrit 37.8 % (35.3-44.9); Hemoglobin 11.9 g/dL (11.5-15.4); Immature Granulocytes % 0.4 % (0-4); Lymphocytes # 1.8 K/mcL (0.6-4.6); Lymphocytes % 31.5 %; Mean Corpuscular HGB Conc 31.5 g/dL (31.6-35.5); Mean Corpuscular Hemoglobin 33.1 pg (28.0-33.3); Mean Platelet Volume 9.4 fL (9.4-12.4); Monocytes # 0.8 K/mcL (0.0-1.3); Monocytes % 14.4 %; Neutrophils # 2.7 K/mcL (1.6-8.9); Platelet Count 159 K/mcL (140-400); Red Cell Distribution Width 13.8 % (11.5-14.5); Segmented Neutrophils % 47.8 %; White Blood Count 5.7 K/mcL (4.3-11.1)
[2022-03-13 03:54] LABS: Troponin I 0.09 ng/mL (< 0.04)
[2022-03-13 04:05] LABS: Albumin 3.4 g/dL (3.5-5.7); Albumin/Globulin Ratio 1.1 (1.1-2.2); Bilirubin,Total 0.5 mg/dL (0.3-1.0); Calcium 9.1 mg/dL (8.6-10.3); Chol/HDL Ratio 2.8 (0-4.9); Phosphorous 4.1 mg/dL (2.7-4.5); Potassium 4.3 mEq/L (3.5-5.1); Total Protein 6.4 g/dL (6.4-8.9)
[2022-03-13] MEDS: Ipratropium/Albuterol Neb 3 ML IH SCH ×6 (04:15→22:55)
[2022-03-13] MEDS: *HR* Heparin 5,000 UNIT/ML VIAL SQ SCH ×3 (06:20→21:11)
[2022-03-13 07:24] LABS: Adenovirus Not Detected (Not Detect); Bordetella Pertussis Not Detected (Not Detect); Chlamydophila pneumoniae Not Detected (Not Detect); Coronavirus 229E Not Detected (Not Detect); Coronavirus HKU1 Not Detected (Not Detect); Coronavirus NL63 Not Detected (Not Detect); Coronavirus OC43 Not Detected (Not Detect); Human Metapneumovirus Not Detected (Not Detect); Human Rhinovirus/Enterovirus Not Detected (Not Detect); Influenza A Subtype 2009 H1 Not Detected (Not Detect); Influenza B Not Detected (Not Detect); Mycoplasma pneumoniae Not Detected (Not Detect); Parainfluenza Virus 1 Not Detected (Not Detect); Parainfluenza Virus 2 Not Detected (Not Detect); Parainfluenza Virus 3 Not Detected (Not Detect); Parainfluenza Virus 4 Not Detected (Not Detect); Respiratory Syncytial Virus Not Detected (Not Detect); SARS-CoV-2 Not Detected (Not Detect)
[2022-03-13] MEDS: Budesonide/Formoterol 160/4.5 1 PUFF INH IH SCH ×2 (07:31→20:03)
[2022-03-13] MEDS: predniSONE 20 MG TABLET PO SCH (08:12)
[2022-03-13] MEDS: Cholecalciferol (D-3) 1,000 UNIT (25MCG) TABLET PO SCH (08:13)
[2022-03-13] MEDS: Aspirin Enteric Coated 81 MG Tablet PO SCH (08:14)
[2022-03-13] MEDS: Loratadine 10 MG TABLET PO SCH (08:14)
[2022-03-13] MEDS: lisinopriL 10 MG TABLET PO SCH (08:14)
[2022-03-13] MEDS: Gabapentin 300 MG CAPSULE PO SCH ×3 (08:14→21:11)
[2022-03-13] MEDS: Furosemide 20 MG/2 ML VIAL IVP SCH (08:15)
[2022-03-13] MEDS ORDERED: Metoprolol XL (24 HR) Succ 50 MG TAB.ER.24H PO SCH (09:00)
[2022-03-13] MEDS ORDERED: Aspirin Enteric Coated 81 MG Tablet PO SCH (09:00)
[2022-03-13] MEDS ORDERED: Metoprolol XL (24 HR) Succ 25 MG TAB.ER.24H PO SCH (12:00)
[2022-03-13] MEDS ORDERED: Metoprolol XL (24 HR) Succ 50 MG TAB.ER.24H PO ONE (13:30)
[2022-03-13] MEDS: Acetaminophen 325 MG TABLET PO PRN (16:58)
[2022-03-13] MEDS: Insulin LISPRO 300 UNITS/3 ML VIAL SUBQ SCH (17:00)
[2022-03-13] MEDS ORDERED: Insulin LISPRO 300 UNITS/3 ML VIAL SUBQ SCH (21:00)
[2022-03-14] MEDS: Ipratropium/Albuterol Neb 3 ML IH SCH ×4 (04:15→15:45)
[2022-03-14 05:03] LABS: Basophils % 0.3 %; Eosinophils % 0.6 %; Hematocrit 38.9 % (35.3-44.9); Hemoglobin 12.3 g/dL (11.5-15.4); Immature Granulocytes % 0.3 % (0-4); Lymphocytes # 1.1 K/mcL (0.6-4.6); Lymphocytes % 15.7 %; Mean Corpuscular HGB Conc 31.6 g/dL (31.6-35.5); Mean Corpuscular Hemoglobin 32.9 pg (28.0-33.3); Mean Platelet Volume 9.7 fL (9.4-12.4); Monocytes # 0.9 K/mcL (0.0-1.3); Monocytes % 12.3 %; Platelet Count 171 K/mcL (140-400); Red Blood Count 3.74 M/mcL (3.82-4.97); Red Cell Distribution Width 13.6 % (11.5-14.5); Segmented Neutrophils % 70.8 %; White Blood Count 7.1 K/mcL (4.3-11.1)
[2022-03-14] MEDS: *HR* Heparin 5,000 UNIT/ML VIAL SQ SCH ×2 (05:14→14:01)
[2022-03-14 05:21] LABS: Calcium 9.3 mg/dL (8.6-10.3); Potassium 4.6 mEq/L (3.5-5.1)
[2022-03-14] MEDS: Budesonide/Formoterol 160/4.5 1 PUFF INH IH SCH (07:43)
[2022-03-14 08:32] VITALS: BP 170/53; PULSE 64; TEMP 97.9
[2022-03-14] MEDS: Acetaminophen 325 MG TABLET PO PRN (08:56)
[2022-03-14] MEDS: Cholecalciferol (D-3) 1,000 UNIT (25MCG) TABLET PO SCH (08:57)
[2022-03-14] MEDS: predniSONE 20 MG TABLET PO SCH (08:58)
[2022-03-14] MEDS: Loratadine 10 MG TABLET PO SCH (08:58)
[2022-03-14] MEDS: Gabapentin 300 MG CAPSULE PO SCH ×2 (08:58→15:52)
[2022-03-14] MEDS: Aspirin Enteric Coated 81 MG Tablet PO SCH (08:58)
[2022-03-14] MEDS: Insulin LISPRO 300 UNITS/3 ML VIAL SUBQ SCH ×3 (08:59→16:34)
[2022-03-14] MEDS: lisinopriL 10 MG TABLET PO SCH (08:59)
[2022-03-14] MEDS: Furosemide 20 MG/2 ML VIAL IVP SCH (09:00)
[2022-03-14] MEDS ORDERED: Metoprolol XL (24 HR) Succ 50 MG TAB.ER.24H PO SCH (09:00)
[2022-03-14 15:46] VITALS: O2SAT 92
== END 2022-03-14 17:16 | disposition home health service (06) | DRG 280 ==
LOC: EMEROOARM 17:23 → 2NENU 17:23 → SUATTDRO 20:21 → 2NENU 21:33
PROVIDERS: ADMIT Internal Medicine; ATTEND Internal Medicine